=== PATIENT | male | born 1975 | race Caucasian/White ===

== ENCOUNTER → 2021-09-26 08:18 | Outpatient (BNVA) | payer BC, SELFPAY | PROVIDERS: PCP Internal Medicine; Visit Provider Internal Medicine ==

== ENCOUNTER → 2021-10-14 11:03 | Outpatient (BNVA) | payer BC, SELFPAY | PROVIDERS: PCP Internal Medicine; Visit Provider Internal Medicine ==

== ENCOUNTER → 2021-11-07 09:50 | Outpatient (BNVA) | payer BC, SELFPAY | PROVIDERS: PCP Internal Medicine; Visit Provider Nurse Practitioner Family | DX: G90.519 Complex regional pain syndrome I of unspecified upper limb (principal); Z79.891 Long term (current) use of opiate analgesic; Z79.899 Other long term (current) drug therapy | CPT/HCPCS: 99212 ==

== ENCOUNTER → 2021-12-05 09:22 | Outpatient (BNVA) | payer BC, SELFPAY | PROVIDERS: Visit Provider Nurse Practitioner Family | DX: Z13.89 Encounter for screening for other disorder (principal) ==

== ENCOUNTER → 2022-01-02 08:52 | Outpatient (BNVA) | payer BC, SELFPAY | PROVIDERS: Visit Provider Nurse Practitioner Family | DX: Z13.89 Encounter for screening for other disorder (principal) ==

== ENCOUNTER → 2022-09-01 10:48 | Outpatient (BNVA) | payer BC, SELFPAY | PROVIDERS: Visit Provider Nurse Practitioner Family | DX: M54.50 Low back pain, unspecified (principal) ==

== ENCOUNTER → 2022-10-03 10:20 | Outpatient (BNVA) | payer BC, SELFPAY | PROVIDERS: Visit Provider Nurse Practitioner Family | DX: Z13.89 Encounter for screening for other disorder (principal) ==

== ENCOUNTER → 2022-10-31 13:15 | Outpatient (BNVA) | payer BC, SELFPAY | PROVIDERS: Visit Provider Nurse Practitioner Family | DX: Z13.89 Encounter for screening for other disorder (principal) ==

== ENCOUNTER → 2022-11-28 08:53 | Outpatient (BNVA) | payer BC, SELFPAY | PROVIDERS: Visit Provider Nurse Practitioner Family | DX: Z13.89 Encounter for screening for other disorder (principal) ==

== ENCOUNTER → 2022-12-26 08:48 | Outpatient (BNVA) | payer BC, SELFPAY | PROVIDERS: Visit Provider Nurse Practitioner Family ==

== ENCOUNTER → 2023-01-23 09:00 | Outpatient (BNVA) | payer BC, SELFPAY | PROVIDERS: PCP Nurse Practitioner Gerontology; Visit Provider Nurse Practitioner Family ==

== ENCOUNTER 2023-02-20 08:50 | Outpatient (AMB) | payer BC, SELFPAY ==
--- NOTE | 2023-02-20 08:55 | A.OFFVIS_ITS ---
Intake Vital Signs 02/20/23 09:04 Height 5 ft 11 in Weight 216 lb 8 oz BMI 30.2 BP 148/91 H Blood Pressure Location Rt brachial Position Sitting Pulse 64 Pulse Source Pulse Oximeter Pulse Oximetry (%) 98 Oxygen Delivery Method Room Air Intake Visit Reasons: Pill count Intake Note: John comes in today for a pill count to oxycodone-acetaminophen, patient should have 33 tablets and presents with 33 tablets which he last took last night 02/19/23 at 11pm. Pain today 11/20. 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 Patient is supposed to have #33 pills, in his possession has #33 pills. This demonstrates a responsible attitude in regards to the medication regimen. Patient reports adequate analgesia on his regimen of oxycodone-acetaminophen 5-325 mg TID prn with no noted side effects. Denies any fever, malaise, shortness of breaths, abdominal pain, headache, dyspnea, chest pain, constipation, nausea, sedation, dizziness, or urinary retention. [facility] Medical History Acute allergic serous otitis media Acute pharyngitis Allergic reaction CRPS (complex regional pain syndrome), upper limb Hypertension senior living (current) use of opiate analgesic Morbid obesity Obesity, Class I, BMI 30.0-34.9 (see actual BMI) Preventative health care Surgical History History of partial amputation of hand Review of Systems Const All systems reviewed & are unremarkable except as noted in HPI and below Physical Exam General: Appears afebrile. Alert and oriented. Mood and affect appropriate. Follows and participates in conversation appropriately. Respiratory effort is unlabored. Able to transition from sit to stand unassisted. Ambulates with bilaterally normal heel strike and toe off. Right Thumb: Right thumb with graft, mild allodynia or hyperalgesia, no color changes with warm temperature. No swelling or redness noted. Psych Appearance: grossly normal and well kempt Mental Status: mental status grossly normal Speech and movement: Normal speech and movement present and Clear speech present Affect: normal affect Attitude: cooperative Thought process: Normal thought process present Thought content: Normal thought content present, suicidality (none), no hallucinations and No Depressive thoughts present Insight: Good insight present (Psych) Judgement: Good judgement present (Psych) Assessment & Plan Assessment & Plan (1) CRPS (complex regional pain syndrome), upper limb: Code(s): G90.519 - Complex regional pain syndrome I of unspecified upper limb (2) Lower back pain: Code(s): M54.50 - Low back pain, unspecified (3) Opioid contract exists: Code(s): Z79.891 - senior living (current) use of opiate analgesic Plan Patient has shown accountability for his medication regimen and the pill count was accurate. There is no evidence of misuse, abuse or diversion at this time. [employer] reviewed. Will send in a prescription for Percocet 5-325 mg TID for 30 days with advanced date of 03/02/23. Random UDS came back concordant. All questions were answered and the patient is in agreement with the plan. Will follow up in one month for a pill count or sooner if needed. Medications: Refilled oxycodone-acetaminophen 5-325 mg Partial Fill upon patient request. 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
[2023-02-20 09:04] VITALS: BP 148/91; PULSE 64; O2SAT 98; BMI 30.2
== END 2023-02-20 09:07 | disposition home or self-care (01) ==
PROVIDERS: PCP Nurse Practitioner Gerontology; Visit Provider Nurse Practitioner Family
DX: G90.519 Complex regional pain syndrome I of unspecified upper limb (principal); M54.50 Low back pain, unspecified; Z79.891 Long term (current) use of opiate analgesic
CPT/HCPCS: 99214

== ENCOUNTER → 2023-02-20 08:50 | Outpatient (BNVA) | payer BC, SELFPAY | PROVIDERS: PCP Nurse Practitioner Gerontology; Visit Provider Nurse Practitioner Family ==

== ENCOUNTER 2023-03-22 08:28 | Outpatient (AMB) | payer BC, SELFPAY ==
--- NOTE | 2023-03-22 08:30 | A.OFFVIS_ITS ---
Intake Vital Signs 03/22/23 08:38 03/22/23 09:09 Height 5 ft 11 in Weight 213 lb 2 oz BMI 29.7 BP 144/100 H 134/95 H Blood Pressure Location Rt brachial Lt brachial Position Sitting Sitting Pulse 57 Pulse Source Pulse Oximeter Pulse Oximetry (%) 98 Oxygen Delivery Method Room Air Comment bp recheck Intake Visit Reasons: Pill count Intake Note: John comes in today for a pill count to oxycodone-acetaminophen, patient should have 30 tablets and presents with 33 tablets which he last took last night 03/21/23 at 10pm. Pain today 11/20. [employer] Required: No Accompanied by: Self / Same As Patient Allergies No Known Allergies Allergy (Verified 03/22/23 08:37) HPI HPI Comments History of Present Illness Details Patient presents today for a pill count. Patient is supposed to have #30 pills, in his possession has #33 pills. This demonstrates a responsible attitude in regards to the medication regimen. Patient reports adequate analgesia on his regimen of oxycodone-acetaminophen 5-325 mg TID prn with no noted side effects. Denies any fever, malaise, shortness of breaths, abdominal pain, headache, dyspnea, chest pain, constipation, nausea, sedation, dizziness, or urinary retention. [facility], [facility] Medical History Acute allergic serous otitis media Acute pharyngitis Allergic reaction CRPS (complex regional pain syndrome), upper limb Hypertension [facility] (current) use of opiate analgesic Morbid obesity Obesity, Class I, BMI 30.0-34.9 (see actual BMI) Preventative health care Surgical History History of partial amputation of hand Review of Systems Const All systems reviewed & are unremarkable except as noted in HPI and below Physical Exam Vital Signs: Last Vital Signs Pulse 57 03/22/23 08:38 BP 134/95 H 03/22/23 09:09 Pulse Ox 98 03/22/23 08:38 Oxygen Delivery Method Room Air 03/22/23 08:38 BMI result Body Mass Index 29.7 General: Appears afebrile. Alert and oriented. Mood and affect appropriate. Follows and participates in conversation appropriately. Respiratory effort is unlabored. Able to transition from sit to stand unassisted. Ambulates with bilaterally normal heel strike and toe off. Psych Appearance: grossly normal and well kempt Mental Status: mental status grossly normal Speech and movement: Normal speech and movement present and Clear speech present Affect: normal affect Attitude: cooperative Thought process: Normal thought process present Thought content: Normal thought content present, suicidality (none), no hallucinations and No Depressive thoughts present Insight: Good insight present (Psych) Judgement: Good judgement present (Psych) Assessment & Plan Assessment & Plan (1) CRPS (complex regional pain syndrome), upper limb: Code(s): G90.519 - Complex regional pain syndrome I of unspecified upper limb (2) Lower back pain: Code(s): M54.50 - Low back pain, unspecified (3) Opioid contract exists: Code(s): 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 There is no evidence of misuse, abuse or diversion at this time. [employer] reviewed. Will send in a prescription for Percocet 5-325 mg TID for 30 days with advanced date of 04/01/23. Random UDS came back concordant. All questions were answered and the patient is in agreement with the plan. Follow up in one month for a pill count or sooner if needed. Medications: Refilled oxycodone-acetaminophen 5-325 mg Partial Fill upon patient request. 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
[2023-03-22 08:38] VITALS: BP 144/100; PULSE 57; O2SAT 98; BMI 29.7
[2023-03-22 09:09] VITALS: BP 134/95
== END 2023-03-22 08:51 | disposition home or self-care (01) ==
PROVIDERS: PCP Nurse Practitioner Gerontology; Visit Provider Nurse Practitioner Family
DX: G90.519 Complex regional pain syndrome I of unspecified upper limb (principal); M54.50 Low back pain, unspecified; Z79.891 Long term (current) use of opiate analgesic
CPT/HCPCS: 99214

== ENCOUNTER → 2023-03-22 08:28 | Outpatient (BNVA) | payer BC, SELFPAY | PROVIDERS: PCP Nurse Practitioner Gerontology; Visit Provider Nurse Practitioner Family ==

== ENCOUNTER 2023-04-24 08:44 | Outpatient (AMB) | payer BC, SELFPAY ==
--- NOTE | 2023-04-24 08:48 | A.OFFVIS_ITS ---
Intake Vital Signs 04/24/23 08:54 Height 5 ft 11 in Weight 210 lb 4 oz BMI 29.3 BP 156/97 H Blood Pressure Location Rt brachial Position Sitting Pulse 65 Pulse Source Pulse Oximeter Pulse Oximetry (%) 98 Oxygen Delivery Method Room Air Intake Visit Reasons: PILL COUNT Intake Note: John comes in today for a pill count to oxycodone-acetaminophen, patient should have 21 tablets and presents with 23 tablets which he last took last night 04/23/23 at 8pm. 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 Patient is supposed to have #21 pills, in his possession has #23 pills. This demonstrates a responsible attitude in regards to the medication regimen. Patient reports adequate analgesia on his regimen of oxycodone-acetaminophen 5-325 mg TID prn with no noted side effects. Denies any fever, malaise, shortness of breaths, abdominal pain, headache, dyspnea, chest pain, constipation, nausea, sedation, dizziness, or urinary retention. Patient presents today with elevated BP reading, asymptomatic. Denies any headache, dizziness, chest tightness, shortness of breath, jaw or neck pain, nausea, or palpitations. Patient reports his dog of 15 years yesterday. He is planning to make a follow up appointment with his PCP regarding medication adjustment. [facility] Medical History retirement (current) use of opiate analgesic CRPS (complex regional pain syndrome), upper limb Preventative health care Obesity, Class I, BMI 30.0-34.9 (see actual BMI) Morbid obesity Hypertension Allergic reaction Acute pharyngitis Acute allergic serous otitis media Surgical History History of partial amputation of hand Review of Systems Const All systems reviewed & are unremarkable except as noted in HPI and below Physical Exam Vital Signs: Last Vital Signs Pulse 65 04/24/23 08:54 BP 156/97 H 04/24/23 08:54 Pulse Ox 98 04/24/23 08:54 Oxygen Delivery Method Room Air 04/24/23 08:54 BMI result Body Mass Index 29.3 General: Appears afebrile. Alert and oriented. Mood and affect appropriate. Follows and participates in conversation appropriately. Respiratory effort is unlabored. Able to transition from sit to stand unassisted. Ambulates with bilaterally normal heel strike and toe off. Resp Effort & Inspection: normal respiratory effort, able to speak in complete sentences, no cough and symmetric chest movement Cardio Jugular venous distension: no JVD Peripheral pulses: Peripheral pulses 2+ throughout Psych Appearance: grossly normal and well kempt Mental Status: mental status grossly normal Speech and movement: Normal speech and movement present and Clear speech present Affect: normal affect and Sad affect present Attitude: cooperative Thought process: Normal thought process present Thought content: Normal thought content present, suicidality (none), no hallucinations and No Depressive thoughts present Insight: Good insight present (Psych) Judgement: Good judgement present (Psych) Assessment & Plan Assessment & Plan (1) CRPS (complex regional pain syndrome), upper limb: Code(s): G90.519 - Complex regional pain syndrome I of unspecified upper limb (2) Lower back pain: Code(s): M54.50 - Low back pain, unspecified (3) Opioid contract exists: Code(s): Z79.891 - 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 There is no evidence of misuse, abuse or diversion at this time. [employer] reviewed. Will send in a prescription for Percocet 5-325 mg TID for 30 days with advanced date of 05/01/23. Patient will monitor BP at home and follow up with his PCP for persistent elevated BP readings. Patient reports taking his BP daily. All questions were answered and the patient is in agreement with the plan. Follow up in one month for a pill count or sooner if needed. Medications: Refilled oxycodone-acetaminophen 5-325 mg Partial Fill upon patient request. 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
[2023-04-24 08:54] VITALS: BP 156/97; PULSE 65; O2SAT 98; BMI 29.3
== END 2023-04-24 09:02 | disposition home or self-care (01) ==
PROVIDERS: PCP Nurse Practitioner Gerontology; Visit Provider Nurse Practitioner Family
DX: G90.519 Complex regional pain syndrome I of unspecified upper limb (principal); M54.50 Low back pain, unspecified; Z79.891 Long term (current) use of opiate analgesic
CPT/HCPCS: 99214

== ENCOUNTER → 2023-04-24 08:44 | Outpatient (BNVA) | payer BC, SELFPAY | PROVIDERS: PCP Nurse Practitioner Gerontology; Visit Provider Nurse Practitioner Family ==

== ENCOUNTER 2023-05-22 08:47 | Outpatient (AMB) | payer BC, SELFPAY ==
--- NOTE | 2023-05-22 08:52 | MHC.OFFVIS ---
Intake Vital Signs 05/22/23 09:00 Height 5 ft 11 in Weight 212 lb 9 oz BMI 29.6 BP 120/64 Blood Pressure Location Rt brachial Position Sitting Pulse 61 Pulse Source Pulse Oximeter Pulse Oximetry (%) 99 Oxygen Delivery Method Room Air Intake Visit Reasons: PILL COUNT Intake Note: John comes in today for a pill count to oxycodone-acetaminophen, patient should have 27 tablets and presents with 28 tablets which he last took today 05/22/23 at 12am. Pain today 12/20 [employer] Required: No Accompanied by: Self / Same As Patient Allergies No Known Allergies Allergy (Verified 05/22/23 09:00) HPI HPI Comments History of Present Illness Details Patient presents today for a pill count. Patient is supposed to have #27 pills, in his possession has #28 pills. This demonstrates a responsible attitude in regards to the medication regimen. Patient reports adequate analgesia on his regimen of oxycodone-acetaminophen 5-325 mg TID prn with no noted side effects. Denies any fever, malaise, shortness of breaths, abdominal pain, headache, dyspnea, chest pain, constipation, nausea, sedation, dizziness, or urinary retention. [facility] Medical History (Updated 05/22/23 @ 09:05 by RISHI Alston) [facility] (current) use of opiate analgesic CRPS (complex regional pain syndrome), upper limb Preventative health care Obesity, Class I, BMI 30.0-34.9 (see actual BMI) Morbid obesity Hypertension Allergic reaction Acute pharyngitis Acute allergic serous otitis media Surgical History History of partial amputation of hand Review of Systems Const All systems reviewed & are unremarkable except as noted in HPI and below Reports as per HPI, Denies chills, Denies difficulty sleeping, Denies fatigue, Denies fever(s), Denies headache(s), Denies malaise, Denies night sweats, Denies poor appetite and Denies weight loss ENT Denies headache(s) Neuro Denies headache(s) Endo Denies fatigue Physical Exam General: Appears afebrile. Alert and oriented. Mood and affect appropriate. Follows and participates in conversation appropriately. Respiratory effort is unlabored. Able to transition from sit to stand unassisted. Ambulates with bilaterally normal heel strike and toe off. Right Thumb: Right thumb with graft, mild allodynia and no color changes with warm temperature but reports color changes in cold environments. No swelling or redness noted. Psych Appearance: grossly normal and well kempt Mental Status: mental status grossly normal Speech and movement: Normal speech and movement present and Clear speech present Affect: normal affect Attitude: cooperative Thought process: Normal thought process present Thought content: Normal thought content present, suicidality (none), no hallucinations and No Depressive thoughts present Insight: Good insight present (Psych) Judgement: Good judgement present (Psych) Assessment & Plan Assessment & Plan (1) CRPS (complex regional pain syndrome), upper limb: Code(s): G90.519 - Complex regional pain syndrome I of unspecified upper limb (2) Lower back pain: Code(s): M54.50 - Low back pain, unspecified (3) Opioid contract exists: Code(s): Z79.891 - 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 There is no evidence of misuse, abuse or diversion at this time. [facility] Next prescription for Percocet 5-325 mg TID for 30 days sent with advanced date of 05/30/23. All questions were answered and the patient is in agreement with the plan. Follow up in one month for a pill count or sooner if needed. Medications: Refilled oxycodone-acetaminophen 5-325 mg Partial Fill upon patient request. 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
[2023-05-22 09:00] VITALS: BP 120/64; PULSE 61; O2SAT 99; BMI 29.6
== END 2023-05-22 09:04 | disposition home or self-care (01) ==
PROVIDERS: PCP Nurse Practitioner Gerontology; Visit Provider Nurse Practitioner Family
DX: G90.519 Complex regional pain syndrome I of unspecified upper limb (principal); M54.50 Low back pain, unspecified; Z79.891 Long term (current) use of opiate analgesic
CPT/HCPCS: 99214

== ENCOUNTER → 2023-05-22 08:47 | Outpatient (BNVA) | payer BC, SELFPAY | PROVIDERS: PCP Nurse Practitioner Gerontology; Visit Provider Nurse Practitioner Family ==

== ENCOUNTER 2023-06-26 08:43 | Outpatient (AMB) | payer BC, SELFPAY ==
--- NOTE | 2023-06-26 08:51 | MHC.OFFVIS ---
Intake Vital Signs 06/26/23 08:58 Height 5 ft 11 in Weight 216 lb 8 oz BMI 30.2 BP 130/68 Blood Pressure Location Rt brachial Position Sitting Pulse 72 Pulse Source Pulse Oximeter Pulse Oximetry (%) 97 Oxygen Delivery Method Room Air Intake Visit Reasons: PILL COUNT Intake Note: John comes in today for a pill count to oxycodone-acetaminophen, patient should have 9 tablets and presents with 12 tablets which he last took last night 06/25/23 at 11pm. Pain today 09/22. 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 Patient is supposed to have #9 pills, in his possession has #12 pills. This demonstrates a responsible attitude in regards to the medication regimen. Patient reports adequate analgesia on his regimen of oxycodone-acetaminophen 5-325 mg TID prn with no noted side effects. Denies any fever, malaise, shortness of breaths, abdominal pain, headache, dyspnea, chest pain, constipation, nausea, sedation, dizziness, or urinary retention. Patient reports new onset of insomnia, difficulty falling asleep and maintaining sleep. He attributes this to work-related stress and is considering trial of cannabis at the local dispensary. Patient reports he will discuss this with his PCP too. [facility] Medical History [facility] (current) use of opiate analgesic CRPS (complex regional pain syndrome), upper limb Preventative health care Obesity, Class I, BMI 30.0-34.9 (see actual BMI) Morbid obesity Hypertension Allergic reaction Acute pharyngitis Acute allergic serous otitis media Surgical History History of partial amputation of hand Review of Systems Const All systems reviewed & are unremarkable except as noted in HPI and below Reports as per HPI, Denies body aches, Denies chills, Denies daytime sleepiness, Reports difficulty sleeping, Denies fatigue, Denies fever(s), Denies headache(s), Denies malaise, Denies night sweats, Denies stops breathing during sleep, Denies weakness and Denies weight loss ENT Denies headache(s) Neuro Denies headache(s) and Denies weakness Psych Reports as per HPI, Reports abnormal sleep pattern, Denies anxiety, Denies depression, Denies difficulty concentrating, Denies mood swings and Denies panic attacks Endo Denies fatigue Physical Exam General: Appears afebrile. Alert and oriented. Mood and affect appropriate. Follows and participates in conversation appropriately. Respiratory effort is unlabored. Able to transition from sit to stand unassisted. Ambulates with bilaterally normal heel strike and toe off. Right Thumb: Right thumb with graft, with moderate allodynia and color changes with cold temperature and weather changes per patient's report. No swelling or redness noted. 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 There is no evidence of misuse, abuse or diversion at this time. [employer] reviewed. Next prescription for Percocet 5-325 mg TID for 30 days sent with advanced date of 06/29/23. Discussed sleep hygiene and conservative measures, including trial of melatonin or magnesium, removing electronic devices, such as TVs, computers, and smart phones, from the bedroom;CBT or stress management therapy; avoiding large meals, caffeine, and alcohol before bedtime; weight optimization, and daily physical activity and exercise. Patient considers trial of cannabis and will discuss this with his PCP. All questions were answered and the patient is in agreement with the plan. Follow up in one month for a pill count or sooner if needed. Medications: New magnesium glycinate 200 mg (2 x 100 mg) PO BEDTIME 60 tabs 3RF insomnia G47.00 - Insomnia, unspecified Refilled oxycodone-acetaminophen 5-325 mg Partial Fill upon patient request. 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
[2023-06-26 08:58] VITALS: BP 130/68; PULSE 72; O2SAT 97; BMI 30.2
== END 2023-06-26 09:07 | disposition home or self-care (01) ==
PROVIDERS: PCP Nurse Practitioner Gerontology; Visit Provider Nurse Practitioner Family
DX: G90.519 Complex regional pain syndrome I of unspecified upper limb (principal); M54.50 Low back pain, unspecified; Z79.891 Long term (current) use of opiate analgesic; G47.00 Insomnia, unspecified
CPT/HCPCS: 99214

== ENCOUNTER → 2023-06-26 08:43 | Outpatient (BNVA) | payer BC, SELFPAY | PROVIDERS: PCP Nurse Practitioner Gerontology; Visit Provider Nurse Practitioner Family ==

== ENCOUNTER 2023-07-24 09:02 | Outpatient (AMB) | payer BC, SELFPAY ==
--- NOTE | 2023-07-24 09:20 | MHC.OFFVIS ---
Intake Vital Signs 07/24/23 09:22 Height 5 ft 11 in Weight 217 lb BMI 30.3 BP 122/78 Blood Pressure Location Rt brachial Position Sitting Pulse 72 Pulse Source Pulse Oximeter Pulse Oximetry (%) 99 Oxygen Delivery Method Room Air Intake Visit Reasons: Medication Count/confirmed Intake Note: John comes in today for a pill count to oxycodone-acetamiophen, patient should have 15 tablets and presents with 17 tablets which he last took last night 07/23/23 at 9pm. Pain today 11/20 Deputy Controller Required: No Allergies No Known Allergies Allergy (Verified 06/26/23 08:57) HPI HPI Comments History of Present Illness Details Patient presents today for a pill count. Patient is supposed to have #15 pills, in his possession has #17 pills. This demonstrates a responsible attitude in regards to the medication regimen. Patient reports adequate analgesia on his regimen of oxycodone-acetaminophen 5-325 mg TID prn with no noted side effects. Denies any fever, malaise, shortness of breaths, abdominal pain, headache, dyspnea, chest pain, constipation, nausea, sedation, dizziness, or urinary retention. Patient denies any recent ER, Urgent clinic or Walk-in clinic. 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 CRPS (complex regional pain syndrome), upper limb Preventative health care Obesity, Class I, BMI 30.0-34.9 (see actual BMI) Morbid obesity Hypertension Allergic reaction Acute pharyngitis Acute allergic serous otitis media Surgical History History of partial amputation of hand Review of Systems Const All systems reviewed & are unremarkable except as noted in HPI and below Physical Exam Vital Signs: Last Vital Signs Pulse 72 07/24/23 09:22 BP 122/78 07/24/23 09:22 Pulse Ox 99 07/24/23 09:22 Oxygen Delivery Method Room Air 07/24/23 09:22 BMI result Body Mass Index 30.3 General: Appears afebrile. Alert and oriented. Mood and affect appropriate. Follows and participates in conversation appropriately. Respiratory effort is unlabored. Able to transition from sit to stand unassisted. Ambulates with bilaterally normal heel strike and toe off. Right Thumb: Right thumb with graft, with mild allodynia and color changes with cold weather changes. No swelling or redness noted. Assessment & Plan Assessment & Plan (1) CRPS (complex regional pain syndrome), upper limb: Code(s): G90.519 - Complex regional pain syndrome I of unspecified upper limb (2) Lower back pain: Code(s): M54.50 - Low back pain, unspecified (3) Opioid contract exists: Code(s): Z79.891 - correction (current) use of opiate analgesic Plan Patient has shown accountability for his medication regimen and the pill count was accurate. There is no evidence of misuse, abuse or diversion at this time. [employer] reviewed. Script for Percocet 5-325 mg TID for 30 days sent with advanced date of 07/28/23. All questions were answered and the patient is in agreement with the plan. Follow up in one month for a pill count or sooner if needed. Medications: Refilled oxycodone-acetaminophen 5-325 mg Partial Fill upon patient request. 1 tab PO TID PRN 90 tabs 0RF pain 30 days G90.519 - Complex regional pain syndrome I of unspecified upper limb, Z79.891 - correction (current) use of opiate analgesic Coding Level of Care Code Est Pt Level 4 (16853) Diagnoses CRPS (complex regional pain syndrome), upper limb G90.519 Lower back pain M54.50 Opioid contract exists Z79.891
[2023-07-24 09:22] VITALS: BP 122/78; PULSE 72; O2SAT 99; BMI 30.3
== END 2023-07-24 09:27 | disposition home or self-care (01) ==
PROVIDERS: PCP Nurse Practitioner Gerontology; Visit Provider Nurse Practitioner Family
DX: G90.519 Complex regional pain syndrome I of unspecified upper limb (principal); M54.50 Low back pain, unspecified; Z79.891 Long term (current) use of opiate analgesic
CPT/HCPCS: 99214

== ENCOUNTER → 2023-07-24 09:02 | Outpatient (BNVA) | payer BC, SELFPAY | PROVIDERS: PCP Nurse Practitioner Gerontology; Visit Provider Nurse Practitioner Family ==

== ENCOUNTER 2023-08-21 08:52 | Outpatient (AMB) | payer BC, SELFPAY ==
--- NOTE | 2023-08-21 08:59 | MHC.OFFVIS ---
Intake Vital Signs 08/21/23 09:00 Height 5 ft 11 in Weight 217 lb 2 oz BMI 30.3 BP 132/70 Blood Pressure Location Rt brachial Position Sitting Pulse 72 Pulse Source Pulse Oximeter Pulse Oximetry (%) 99 Oxygen Delivery Method Room Air Intake Visit Reasons: Medication Count Intake Note: John comes in today for a pill count to oxycodone-acetaminophen, patient should have 18 tablets and presents with 20 tablets which he last took yesterday 08/20/23 at 4pm. Pain today 10/20. Patient also signed updated opioid contract, signed copy was provided to patient. 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 Patient is supposed to have #18 pills, in his possession has #20 pills. This demonstrates a responsible attitude in regards to the medication regimen. Patient reports adequate analgesia on his regimen of oxycodone-acetaminophen 5-325 mg TID prn with no noted side effects. Current cold weather or cold applications make the thumb pain worse, whereas massage, heat, gloves and current medication regime makes it better. Patient states the skin on the thumb has been darkening since the injury and during severe cold weather. He continues to work full-time. Denies any fever, malaise, chest pain, shortness of breaths, abdominal pain, headache, dyspnea, constipation, nausea, sedation, dizziness, or urinary retention. Patient denies any recent ER, Urgent clinic or Walk-in clinic. 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 CRPS (complex regional pain syndrome), upper limb Preventative health care Obesity, Class I, BMI 30.0-34.9 (see actual BMI) Morbid obesity Hypertension Allergic reaction Acute pharyngitis Acute allergic serous otitis media Surgical History History of partial amputation of hand Review of Systems Const All systems reviewed & are unremarkable except as noted in HPI and below Physical Exam Vital Signs: Last Vital Signs Pulse 72 08/21/23 09:00 BP 132/70 08/21/23 09:00 Pulse Ox 99 08/21/23 09:00 Oxygen Delivery Method Room Air 08/21/23 09:00 BMI result Body Mass Index 30.3 General: Appears afebrile. Alert and oriented. Mood and affect appropriate. Follows and participates in conversation appropriately. Respiratory effort is unlabored. No cough. Able to transition from sit to stand unassisted. Ambulates with bilaterally normal heel strike and toe off. Right Thumb: Right thumb with graft, with mild allodynia and color changes with cold weather changes. No swelling or redness noted. Psych Appearance: grossly normal and well kempt Mental Status: mental status grossly normal Speech and movement: Normal speech and movement present and Clear speech present Affect: normal affect Attitude: cooperative Thought process: Normal thought process present Thought content: Normal thought content present, suicidality (none), no hallucinations and No Depressive thoughts present Insight: Good insight present (Psych) Judgement: Good judgement present (Psych) Assessment & Plan Assessment & Plan (1) CRPS (complex regional pain syndrome), upper limb: Code(s): G90.519 - Complex regional pain syndrome I of unspecified upper limb (2) Lower back pain: Code(s): M54.50 - Low back pain, unspecified (3) Opioid contract exists: Code(s): Z79.891 - 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 There is no evidence of misuse, abuse or diversion at this time. [employer] reviewed. Script for Percocet 5-325 mg TID for 30 days sent with advanced date of 08/27/23. All questions were answered and the patient is in agreement with the plan. Follow up in 4-5 weeks for a pill count or sooner if needed. Medications: Refilled oxycodone-acetaminophen 5-325 mg Partial Fill upon patient request. 1 tab PO TID PRN 90 tabs 0RF pain 30 days G90.519 - Complex regional pain syndrome I of unspecified upper limb, Z79.891 - detention (current) use of opiate analgesic Coding Level of Care Code Est Pt Level 4 (32229) Diagnoses CRPS (complex regional pain syndrome), upper limb G90.519 Lower back pain M54.50 Opioid contract exists Z79.891
[2023-08-21 09:00] VITALS: BP 132/70; PULSE 72; O2SAT 99; BMI 30.3
== END 2023-08-21 09:05 | disposition home or self-care (01) ==
PROVIDERS: PCP Nurse Practitioner Gerontology; Visit Provider Nurse Practitioner Family
DX: G90.519 Complex regional pain syndrome I of unspecified upper limb (principal); M54.50 Low back pain, unspecified; Z79.891 Long term (current) use of opiate analgesic
CPT/HCPCS: 99214

== ENCOUNTER → 2023-08-21 08:52 | Outpatient (BNVA) | payer BC, SELFPAY | PROVIDERS: PCP Nurse Practitioner Gerontology; Visit Provider Nurse Practitioner Family ==

== ENCOUNTER 2023-09-18 08:47 | Outpatient (AMB) | payer BC, SELFPAY ==
--- NOTE | 2023-09-18 08:48 | A.OFFVIS_ITS ---
Intake Vital Signs 09/18/23 08:55 Height 5 ft 11 in Weight 216 lb 2 oz BMI 30.1 BP 128/68 Blood Pressure Location Rt brachial Position Sitting Pulse 80 Pulse Source Pulse Oximeter Pulse Oximetry (%) 97 Oxygen Delivery Method Room Air Intake Visit Reasons: Medication Count/confirmed Intake Note: John comes in today for a pill count to oxycodone-acetaminophen. Patient should have 24 tablets and presents with 27 tablets which he last took today 09/18/23 at 1am. Pain today 11/20 Senior Strategy Manager Required: No Accompanied by: Self / Same As Patient Allergies No Known Allergies Allergy (Verified 09/18/23 08:55) HPI HPI Comments History of Present Illness Details Patient presents today for a pill count. Patient is supposed to have #24 pills, in his possession has #27 pills. This demonstrates a responsible attitude in regards to the medication regimen. Patient reports adequate analgesia on his regimen of oxycodone-acetaminophen 5-325 mg TID prn with no noted side effects. Patient reports cold weather increases his thumb pain worse, whereas massage, heat, gloves and current medication regime makes it better. Denies any fever, malaise, chest pain, shortness of breaths, abdominal pain, headache, dyspnea, constipation, nausea, sedation, dizziness, or urinary retention. 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 CRPS (complex regional pain syndrome), upper limb Preventative health care Obesity, Class I, BMI 30.0-34.9 (see actual BMI) Morbid obesity Hypertension Allergic reaction Acute pharyngitis Acute allergic serous otitis media Surgical History History of partial amputation of hand Review of Systems Const All systems reviewed & are unremarkable except as noted in HPI and below Physical Exam Vital Signs: Last Vital Signs Pulse 80 09/18/23 08:55 BP 128/68 09/18/23 08:55 Pulse Ox 97 09/18/23 08:55 Oxygen Delivery Method Room Air 09/18/23 08:55 BMI result Body Mass Index 30.1 General: Appears afebrile. Alert and oriented. Mood and affect appropriate. Follows and participates in conversation appropriately. Respiratory effort is unlabored. No cough. Able to transition from sit to stand unassisted. Ambulates with bilaterally normal heel strike and toe off. Psych Appearance: grossly normal Mental Status: mental status grossly normal Speech and movement: Normal speech and movement present Affect: normal affect Attitude: cooperative Thought process: Normal thought process present Thought content: Normal thought content present, suicidality (none), no hallucinations and No Depressive thoughts present Insight: Good insight present (Psych) Judgement: Good judgement present (Psych) Results Reviewed Results Reviewed: No imaging is available for review. Assessment & Plan Assessment & Plan (1) CRPS (complex regional pain syndrome), upper limb: Code(s): G90.519 - Complex regional pain syndrome I of unspecified upper limb (2) Opioid contract exists: Code(s): Z79.891 - residential (current) use of opiate analgesic Plan Patient has shown accountability for his medication regimen and the pill count was accurate. There is no evidence of misuse, abuse or diversion at this time. [employer] reviewed. Script for Percocet 5-325 mg TID for 30 days sent with advanced date of 09/26/23. All questions were answered and the patient is in agreement with the plan. Follow up in 4-5 weeks for a pill count or sooner if needed. Medications: Refilled oxycodone-acetaminophen 5-325 mg Partial Fill upon patient request. 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
[2023-09-18 08:55] VITALS: BP 128/68; PULSE 80; O2SAT 97; BMI 30.1
== END 2023-09-18 09:01 | disposition home or self-care (01) ==
PROVIDERS: PCP Nurse Practitioner Gerontology; Visit Provider Nurse Practitioner Family
DX: G90.519 Complex regional pain syndrome I of unspecified upper limb (principal); Z79.891 Long term (current) use of opiate analgesic
CPT/HCPCS: 99214

== ENCOUNTER → 2023-09-18 08:47 | Outpatient (BNVA) | payer BC, SELFPAY | PROVIDERS: PCP Nurse Practitioner Gerontology; Visit Provider Nurse Practitioner Family ==

== ENCOUNTER 2023-10-18 08:48 | Outpatient (AMB) | payer BC, SELFPAY ==
--- NOTE | 2023-10-18 08:57 | MHC.OFFVIS ---
Intake Vital Signs 10/18/23 09:06 Height 5 ft 11 in Weight 221 lb 4 oz BMI 30.9 BP 122/68 Blood Pressure Location Rt brachial Position Sitting Pulse 72 Pulse Source Pulse Oximeter Pulse Oximetry (%) 98 Oxygen Delivery Method Room Air Intake Visit Reasons: Pill count Intake Note: John comes in today for a pill count to oxycodone-acetaminophen, patient should have 24 tabs and presents with 26 tablets which he last took last night 10/17/23 at 10pm. 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 Patient is supposed to have #24 pills, in his possession has #26 pills. This demonstrates a responsible attitude in regards to the medication regimen. Patient reports adequate analgesia on his regimen of oxycodone-acetaminophen 5-325 mg TID prn with no noted side effects. Patient reports today's rainy weather increases his thumb symptoms. He continues to endorse being more funcitonal and less symptomatic on current medication regime. He also utilizes massage, heat and gloves. Denies any fever, malaise, chest pain, shortness of breaths, abdominal pain, headache, dyspnea, constipation, nausea, sedation, dizziness, or urinary retention. 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 Alert and oriented. Mood and affect appropriate. Follows and participates in conversation appropriately. Respiratory effort is unlabored. No cough. Able to transition from sit to stand unassisted. Ambulates with bilaterally normal heel strike and toe off. Right Thumb: Right thumb with graft, with mild allodynia and color changes with cold rainy temperature and weather changes per patient's report. No swelling or redness noted. Extrem General: Yes capillary refill normal, Yes no clubbing, cyanosis or edema and Yes no calf tenderness Psych Appearance: grossly normal Mental Status: mental status grossly normal Speech and movement: Normal speech and movement present Affect: normal affect Attitude: cooperative Thought process: Normal thought process present Thought content: Normal thought content present, suicidality (none), no hallucinations and No Depressive thoughts present Insight: Good insight present (Psych) Judgement: Good judgement present (Psych) Results Reviewed Results Reviewed: No imaging is available for review. 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 There is no evidence of misuse, abuse or diversion at this time. [employer] reviewed. Script for Percocet 5-325 mg TID for 30 days sent with advanced date of 10/24/23. Denies any side effects and reports good tolerance. All questions were answered and the patient is in agreement with the plan. Follow up in 4-5 weeks for a pill count or sooner if needed. Medications: Refilled oxycodone-acetaminophen 5-325 mg Partial Fill upon patient request. 1 tab PO TID PRN 90 tabs 0RF pain 30 days G90.519 - Complex regional pain syndrome I of unspecified upper limb, Z79.891 - senior living (current) use of opiate analgesic Coding Level of Care Code Est Pt Level 4 (08245) Diagnoses CRPS (complex regional pain syndrome), upper limb G90.519 Opioid contract exists Z79.891 Chronic pain syndrome G89.4
[2023-10-18 09:06] VITALS: BP 122/68; PULSE 72; O2SAT 98; BMI 30.9
== END 2023-10-18 09:10 | disposition home or self-care (01) ==
PROVIDERS: PCP Nurse Practitioner Gerontology; Visit Provider Nurse Practitioner Family
DX: G89.4 Chronic pain syndrome (principal); G90.511 Complex regional pain syndrome I of right upper limb; Z79.891 Long term (current) use of opiate analgesic
CPT/HCPCS: 99214

== ENCOUNTER → 2023-10-18 08:48 | Outpatient (BNVA) | payer BC, SELFPAY | PROVIDERS: PCP Nurse Practitioner Gerontology; Visit Provider Nurse Practitioner Family ==

== ENCOUNTER 2023-11-15 09:06 | Outpatient (AMB) | payer BC, SELFPAY ==
--- NOTE | 2023-11-15 09:07 | MHC.OFFVIS ---
Intake Vital Signs 11/15/23 09:15 Height 5 ft 11 in Weight 221 lb BMI 30.8 BP 130/68 Blood Pressure Location Rt brachial Position Sitting Pulse 79 Pulse Source Pulse Oximeter Pulse Oximetry (%) 99 Oxygen Delivery Method Room Air Intake Visit Reasons: Pill Count Intake Note: John comes in today for a pill count to oxycodone-acetaminophen, patient should have 24 tablets and presents with 27 tablets which he last took last night 11/13/33 at 10pm. Pain today 10/20 Final Cigar And Box Examiner Required: No Accompanied by: Self / Same As Patient Allergies No Known Allergies Allergy (Verified 11/15/23 09:16) HPI HPI Comments History of Present Illness Details Patient presents today for a pill count. Patient is supposed to have #24 pills, in his possession has #27 pills. This demonstrates a responsible attitude in regards to the medication regimen. Patient reports adequate analgesia on his regimen of oxycodone-acetaminophen 5-325 mg TID prn with no noted side effects. Denies any fever, malaise, chest pain, shortness of breaths, abdominal pain, headache, dyspnea, constipation, nausea, sedation, dizziness, or urinary retention. 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 CRPS (complex regional pain syndrome), upper limb Preventative health care Obesity, Class I, BMI 30.0-34.9 (see actual BMI) Morbid obesity Hypertension Allergic reaction Acute pharyngitis Acute allergic serous otitis media Surgical History History of partial amputation of hand Review of Systems Const All systems reviewed & are unremarkable except as noted in HPI and below Physical Exam Vital Signs: Last Vital Signs Pulse 79 11/15/23 09:15 BP 130/68 11/15/23 09:15 Pulse Ox 99 11/15/23 09:15 Oxygen Delivery Method Room Air 11/15/23 09:15 BMI result Body Mass Index 30.8 General: Appears afebrile. Alert and oriented. Mood and affect appropriate. Follows and participates in conversation appropriately. Respiratory effort is unlabored. No cough. Able to transition from sit to stand unassisted. Ambulates with bilaterally normal heel strike and toe off. Right Thumb: Right thumb with graft, with minimal allodynia and color changes with cold wintery temperature and weather changes per patient's report. No swelling or redness noted. Psych Appearance: grossly normal and well kempt Mental Status: mental status grossly normal Speech and movement: Normal speech and movement present and Clear speech present Affect: normal affect Attitude: cooperative Thought process: Normal thought process present Thought content: Normal thought content present, suicidality (none), no hallucinations and No Depressive thoughts present Insight: Good insight present (Psych) Judgement: Good judgement present (Psych) Assessment & Plan Assessment & Plan (1) CRPS (complex regional pain syndrome), upper limb: Code(s): G90.519 - Complex regional pain syndrome I of unspecified upper limb (2) Opioid contract exists: Code(s): Z79.891 - shelter (current) use of opiate analgesic (3) Chronic pain syndrome: Code(s): G89.4 - Chronic pain syndrome Plan Patient has shown accountability for his medication regimen and the pill count was accurate. There is no evidence of misuse, abuse or diversion at this time. [employer] reviewed. Script for Percocet 5-325 mg TID for 30 days sent with advanced date of 11/23/23. Denies any side effects and reports good tolerance. All questions were answered and the patient is in agreement with the plan. Follow up in 4-5 weeks for a pill count or sooner if needed. Medications: Refilled oxycodone-acetaminophen 5-325 mg Partial Fill upon patient request. 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
[2023-11-15 09:15] VITALS: BP 130/68; PULSE 79; O2SAT 99; BMI 30.8
== END 2023-11-15 09:20 | disposition home or self-care (01) ==
PROVIDERS: PCP Nurse Practitioner Gerontology; Visit Provider Nurse Practitioner Family
DX: G89.4 Chronic pain syndrome (principal); G90.519 Complex regional pain syndrome I of unspecified upper limb; Z79.891 Long term (current) use of opiate analgesic
CPT/HCPCS: 99214

== ENCOUNTER → 2023-11-15 09:06 | Outpatient (BNVA) | payer BC, SELFPAY | PROVIDERS: PCP Nurse Practitioner Gerontology; Visit Provider Nurse Practitioner Family ==

== ENCOUNTER 2023-12-13 08:47 | Outpatient (AMB) | payer BC, SELFPAY ==
--- NOTE | 2023-12-13 08:50 | A.OFFVIS_ITS ---
Vital Signs 3 12/13/23 08:58 Height 5 ft 11 in Weight 219 lb 8 oz BMI 30.6 BP 130/78 Blood Pressure Location Rt brachial Position Sitting Pulse 82 Pulse Source Pulse Oximeter Pulse Oximetry (%) 99 Oxygen Delivery Method Room Air Intake Visit Reasons: PILL COUNT Intake Note: John comes in today for a pill count to oxycodone-acetaminophen. Patient should have 30 tablets and presents with 32 tablets which he last took today 12/13/23 at 4:30am. 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 Patient is prescribed oxycodone acetaminophen 5-325mg take 1 tablet three times daily as needed. Patient arrived today with the expectation of having 30 pills, she presented 32 pills which were counted in the presence of two staff members and returned to the patient in the original prescription bottle. This demonstrates responsible attitude toward patient's opioid medications. Pain is reported today as 12/20 and last dose of pain medication was taken at 04:30 this morning. Patient denies side effects including somnolence, constipation, itching, dyspnea, rash, dizziness or weakness. He suffered slip and fall down some stairs 10/2023, recent MRI results were reviewed, as per below. Patient continues with axial lower back pain without radiation down either leg. Denies burning, numbness, tingling, shooting, zapping or electrical pain. Denies red flag symptoms including new loss of bowel, bladder or saddle anesthesia. Pain worse with movement and twisting. He has never had injections for this pain. Patient reports previous attempt at physical therapy, continues with home exercise program as advised on discharge from PT but pain persists. He is taking his chronic opioids and ibuprofen without relief. Prior visit with Corine Bai NP: Patient presents today for a pill count. Patient is supposed to have #24 pills, in his possession has #27 pills. This demonstrates a responsible attitude in regards to the medication regimen. Patient reports adequate analgesia on his regimen of oxycodone-acetaminophen 5- 325 mg TID prn with no noted side effects. Denies any fever, malaise, chest pain, shortness of breaths, abdominal pain, headache, dyspnea, constipation, nausea, sedation, dizziness, or urinary retention. 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 CRPS (complex regional pain syndrome), upper limb Preventative health care Obesity, Class I, BMI 30.0-34.9 (see actual BMI) Morbid obesity Hypertension Allergic reaction Acute pharyngitis Acute allergic serous otitis media Surgical History History of partial amputation of hand Review of Systems Const All systems reviewed & are unremarkable except as noted in HPI and below Physical Exam Vital Signs: Last Vital Signs Pulse 82 12/13/23 08:58 BP 130/78 12/13/23 08:58 Pulse Ox 99 12/13/23 08:58 Oxygen Delivery Method Room Air 12/13/23 08:58 BMI result Body Mass Index 30.6 General: awake, alert, oriented. Answers questions appropriately. Fully engaged in examination. Skin: warm, dry, intact HEENT: Normocephalic. Hearing intact. Cardiac: External chest normal in appearance. Respiratory: No cough, audible wheezing or stridor. Abdomen: without gross distension. MS: No obvious swelling or deformities. Able to transition from sit to stand unassisted. Ambulates with bilaterally normal heel strike and toe off Neurological: Oriented to person, place, time and situation. Thought process intact. No gait abnormalities appreciated. Psychiatric: Appropriate mood and affect. Good judgment and insight. 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 No obvious signs of diversion, abuse or misuse of the opioid medications. Will send in prescription for Percocet 5-325 mg TID with an advanced date of 12/23/2023. Discussed options for treatment for his lumbar spondylosis including diagnostic injections, therapeutic injections, sprint and RFA. Sprint pamphlet was provided to the patient. Patient will review and consider, we will let the office know if he would like to proceed with diagnostic lumbar medial branch blocks. Patient to follow-up in the office in 1 month, sooner if needed. All questions and concerns have been answered and patient agrees with the plan. Medications: Refilled 2 oxycodone-acetaminophen 5-325 mg Partial Fill upon patient request. 1 tab PO TID 30 days PRN 90 tabs 0RF pain G90.519 - Complex regional pain syndrome I of unspecified upper limb, Z79.891 - prison (current) use of opiate analgesic Coding Level of Care Code Est Pt Level 4 (54563) Diagnoses CRPS (complex regional pain syndrome), upper limb G90.519 Opioid contract exists Z79.891 Chronic pain syndrome G89.4 Lumbar spondylosis M47.816
[2023-12-13 08:58] VITALS: BP 130/78; PULSE 82; O2SAT 99; BMI 30.6
== END 2023-12-13 09:14 | disposition home or self-care (01) ==
PROVIDERS: PCP Nurse Practitioner Gerontology; Visit Provider Registered Nurse Emergency
DX: G90.519 Complex regional pain syndrome I of unspecified upper limb (principal); G89.4 Chronic pain syndrome; M47.816 Spondylosis without myelopathy or radiculopathy, lumbar region; Z79.891 Long term (current) use of opiate analgesic
CPT/HCPCS: 99214

== ENCOUNTER → 2023-12-13 08:47 | Outpatient (BNVA) | payer BC, SELFPAY | PROVIDERS: PCP Nurse Practitioner Gerontology; Visit Provider Registered Nurse Emergency ==

== ENCOUNTER 2024-01-10 08:47 | Outpatient (REF) | payer BC, SELFPAY ==
--- NOTE | ~2024-01-10 | XR_ITS ---
EXAMINATION: XR HIP, LEFT CLINICAL INFORMATION: Low back pain, unspecified. COMPARISON: None available. TECHNIQUE: AP view of the pelvis and AP and frog-leg lateral views of the left hip. FINDINGS: No fracture. Alignment is anatomic. Hip joint space is maintained. Soft tissues are unremarkable. Right hip joint is also unremarkable. Pubic symphysis and SI joints are normal in appearance. Degenerative spondylosis is noted in the lower lumbar spine. Soft tissues are unremarkable. XR/XR hip LT w PEL1V IMPRESSION: 1. Normal radiographs of the left hip. 2. Degenerative spondylosis in the lower lumbar spine.
--- NOTE | ~2024-01-10 | XR_ITS ---
EXAMINATION: XR sacroiliac joints XR sacrum/coccyx INDICATION: Reason for Exam M53.3 - Sacrococcygeal disorders, not elsewhere classified COMPARISON: None TECHNIQUE: AP and bilateral oblique views of the SI joints as well as 3 views of the sacrum and coccyx. FINDINGS: Mild osteoarthritis suspected at the SI joints bilaterally, characterized by articular sclerosis. Mild sacroiliitis could also have this appearance. Hip joints appear relatively well-preserved. There is degenerative disc disease in lower lumbar spine with loss of vertebral disc height and facet arthropathy at L4-L5 and L5-S1. No osseous lesions. No fractures. Sacrum and coccyx are intact without appreciable fractures. As in the lateral view, there is significant anterior angulation of the coccyx, potentially due to normal variation. No discrete cortical breaks are identified. XR/XR sacrum coccyx min 2V IMPRESSION: 1. 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 Mild sacroiliitis could also have this appearance. 2. Degenerative disc disease and facet arthropathy in the lower lumbar spine. 3. Anterior angulation of the coccyx, potentially due to normal variation. No appreciable fractures.
--- NOTE | ~2024-01-10 | XR_ITS ---
EXAMINATION: XR sacroiliac joints XR sacrum/coccyx INDICATION: Reason for Exam M53.3 - Sacrococcygeal disorders, not elsewhere classified COMPARISON: None TECHNIQUE: AP and bilateral oblique views of the SI joints as well as 3 views of the sacrum and coccyx. FINDINGS: Mild osteoarthritis suspected at the SI joints bilaterally, characterized by articular sclerosis. Mild sacroiliitis could also have this appearance. Hip joints appear relatively well-preserved. There is degenerative disc disease in lower lumbar spine with loss of vertebral disc height and facet arthropathy at L4-L5 and L5-S1. No osseous lesions. No fractures. Sacrum and coccyx are intact without appreciable fractures. As in the lateral view, there is significant anterior angulation of the coccyx, potentially due to normal variation. No discrete cortical breaks are identified. XR/XR sacroiliac joint min 3V IMPRESSION: 1. 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 Mild sacroiliitis could also have this appearance. 2. Degenerative disc disease and facet arthropathy in the lower lumbar spine. 3. Anterior angulation of the coccyx, potentially due to normal variation. No appreciable fractures.
== END 2024-01-10 08:48 | disposition home or self-care (01) ==
LOC: HO.XRAY 08:47
PROVIDERS: PCP Nurse Practitioner Gerontology; Visit Provider Nurse Practitioner Family
DX: M51.16 Intervertebral disc disorders with radiculopathy, lumbar region (principal); Z91.81 History of falling; M25.552 Pain in left hip; M47.816 Spondylosis without myelopathy or radiculopathy, lumbar region; M46.1 Sacroiliitis, not elsewhere classified
CPT/HCPCS: 72202; 72220; 73502

== ENCOUNTER 2024-01-10 08:47 | Outpatient (AMB) | payer BC, SELFPAY ==
--- NOTE | 2024-01-10 08:50 | A.OFFVIS_ITS ---
Vital Signs 3 01/10/24 09:03 Height 5 ft 11 in Weight 220 lb 6 oz BMI 30.7 BP 130/70 Blood Pressure Location Rt brachial Position Sitting Intake Visit Reasons: PILL COUNT Intake Note: John comes in today for a pill count to oxycodone-acetaminophen, patient should have 36 tablets and presents with 35 tablets which he last took today 01/10/24 at 5am. 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 Patient is supposed to have #36 pills, in his possession has #35 pills. This demonstrates a responsible attitude in regards to the medication regimen. Patient reports mild analgesia due to recent exacerbation of low back pain due to fall in October on his regimen of oxycodone- acetaminophen 5-325 mg TID prn with no noted side effects. Denies any fever, malaise, chest pain, shortness of breaths, abdominal pain, headache, dyspnea, constipation, nausea, sedation, dizziness, or urinary retention. Patient reports ongoing low back pain with radiation into his left buttock and lateral left hip into posterior thigh at the knee level. Reports mild coccyx pain and rosy horses in left buttock and left thigh. Pain increases with prolonged sitting and changing positions and relieved by resting or standing to relieve left buttock pain. Continues to experience significant pain unrelieved with oxycodone, Ibuprofen, tizanidine, ice and heat applications. Pain is rated at 6/10. Denies any fever, abdominal or groin pain, foot drop, weakness, bladder or bowel dysfunction or saddle anesthesia. 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 Patient is prescribed oxycodone acetaminophen 5-325mg take 1 tablet three times daily as needed. Patient arrived today with the expectation of having 30 pills, she presented 32 pills which were counted in the presence of two staff members and returned to the patient in the original prescription bottle. This demonstrates responsible attitude toward patient's opioid medications. Pain is reported today as 5/10 and last dose of pain medication was taken at 04:30 this morning. Patient denies side effects including somnolence, constipation, itching, dyspnea, rash, dizziness or weakness. He suffered slip and fall down some stairs 10/2023, recent MRI results were reviewed, as per below. Patient continues with axial lower back pain without radiation down either leg. Denies burning, numbness, tingling, shooting, zapping or electrical pain. Denies red flag symptoms including new loss of bowel, bladder or saddle anesthesia. Pain worse with movement and twisting. He has never had injections for this pain. Patient reports previous attempt at physical therapy, continues with home exercise program as advised on discharge from PT but pain persists. He is taking his chronic opioids and ibuprofen without relief. 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 Alert and oriented. Mood and affect appropriate. Follows and participates in conversation appropriately. Respiratory effort is unlabored. No cough. Able to transition from sit to stand unassisted. Ambulates with bilaterally normal heel strike and toe off. Right Thumb: Right thumb with graft, with minimal allodynia and color changes with cold rainy weather changes per patient's report. No swelling or redness noted. Back/Spine/Pelvis Other: Limited lumbar range of motion due to pain. Painful facet loading bilaterally. Lumbar extension reproduces moderate pain, lumbar flexion reproduces mild pain. SLR negative. DTR intact +2 and symmetric. LOVE test reproduces left lateral hip and left lower back pain. +Moderate TTP in projection of left SIJ areas. +Eduardo?s, Stinchfield, Pelvic Compression and Gaenslen?s test positive on the left. No groin pain with I/E hip rotations. Valsalva maneuver negative. Cervical Spine: cervical ROM normal and No Cervical spine tenderness Thoracic/Lumbar Spine: thoracic and lumbar spine normal to inspection, No Thoracic/lumbar spine scar(s), Lasegue's sign negative, straight leg raise negative bilaterally, pain with thoraco-lumbar ROM, paraspinal muscle tenderness, No thoracic spinal tenderness and lumbar spinal tenderness (L4-S1) Psych Appearance: grossly normal and well kempt Mental Status: mental status grossly normal Speech and movement: Normal speech and movement present and Clear speech present Affect: normal affect Attitude: cooperative Thought process: Normal thought process present Thought content: Normal thought content present, suicidality (none), no hallucinations and No Depressive thoughts present Insight: Good insight present (Psych) Judgement: Good judgement present (Psych) Results Reviewed Results Reviewed: Assessment & Plan Assessment & Plan (1) Lower back pain: Code(s): M54.50 - Low back pain, unspecified Category: Medical (2) Sacroiliac joint pain: Code(s): M53.3 - Sacrococcygeal disorders, not elsewhere classified Category: Medical (3) Left hip pain: Code(s): M25.552 - Pain in left hip Category: Medical (4) History of recent fall: Code(s): Z91.81 - History of falling Category: Medical (5) Sacroiliac joint pain: Code(s): M53.3 - Sacrococcygeal disorders, not elsewhere classified Category: Medical (6) Left hip pain: Code(s): M25.552 - Pain in left hip Category: Medical (7) History of recent fall: Code(s): Z91.81 - History of falling Category: Medical (8) Coccydynia: Code(s): M53.3 - Sacrococcygeal disorders, not elsewhere classified Category: Medical (9) Sacroiliac joint pain: Code(s): M53.3 - Sacrococcygeal disorders, not elsewhere classified Category: Medical (10) Left hip pain: Code(s): M25.552 - Pain in left hip Category: Medical (11) Lumbar spondylosis: Code(s): M47.816 - Spondylosis without myelopathy or radiculopathy, lumbar region Category: Medical (12) CRPS (complex regional pain syndrome), upper limb: Code(s): G90.519 - Complex regional pain syndrome I of unspecified upper limb Category: Medical (13) Opioid contract exists: Code(s): 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 No obvious signs of diversion, abuse or misuse of the opioid medications. Script sent for Percocet 5-325 mg TID with an advanced date of 01/21/2024. Will add gabapentin, patient will start one tab at bedtime for 3-5 days and advance to Will obtain sacroiliac joint, hip and coccyx xray to assess degree of arthritis, dislocation or fractures. Pain consistent with left sacroiliac joint pain with positive provocative testing and axial low back pain. Patient will return to the clinic to discuss results of the xray findings when it is done and consider interventional therapy as indicated. Patient to follow-up in the office in 1 month for pill count, sooner if needed. All questions and concerns have been answered and patient agrees with the plan. Orders: Orders 2 XR sacroiliac joint min 3V Today M25.552 - Pain in left hip, M53.3 - Sacrococcygeal disorders, not elsewhere classified, Z91.81 - History of falling XR hip LT w PEL1V Today M25.552 - Pain in left hip, M53.3 - Sacrococcygeal disorders, not elsewhere classified, M54.50 - Low back pain, unspecified, Z91.81 - History of falling XR sacrum coccyx min 2V Today M25.552 - Pain in left hip, M53.3 - Sacrococcygeal disorders, not elsewhere classified, Z91.81 - History of falling Medications: New 2 gabapentin 300 mg PO TID 30 days 90 caps 0RF pain M25.552 - Pain in left hip, M47.816 - Spondylosis without myelopathy or radiculopathy, lumbar region, M53.3 - Sacrococcygeal disorders, not elsewhere classified Refilled 2 oxycodone-acetaminophen 5-325 mg Partial Fill upon patient request. 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
[2024-01-10 09:03] VITALS: BP 130/70; BMI 30.7
== END 2024-01-10 09:40 | disposition home or self-care (01) ==
PROVIDERS: PCP Nurse Practitioner Gerontology; Visit Provider Nurse Practitioner Family
DX: M54.50 Low back pain, unspecified (principal); M53.3 Sacrococcygeal disorders, not elsewhere classified; M25.552 Pain in left hip; Z79.891 Long term (current) use of opiate analgesic; Z91.81 History of falling; M47.816 Spondylosis without myelopathy or radiculopathy, lumbar region; G90.519 Complex regional pain syndrome I of unspecified upper limb
CPT/HCPCS: 99214

== ENCOUNTER 2024-02-07 08:43 | Outpatient (AMB) | payer BC, SELFPAY ==
--- NOTE | 2024-02-07 08:45 | A.OFFVIS_ITS ---
Vital Signs 3 02/07/24 08:54 Height 5 ft 11 in Weight 216 lb 2 oz BMI 30.1 BP 128/62 Blood Pressure Location Rt brachial Position Sitting Pulse 67 Pulse Source Pulse Oximeter Pulse Oximetry (%) 99 Oxygen Delivery Method Room Air Intake Visit Reasons: PILL COUNT Intake Note: John comes in today for a pill count to oxycodone-acetaminophen, patient should have 39 tablets and presents with 40 tablets which he last took last night at 02/06/24 at 6pm. Pain today 10/20. Allergies No Known Allergies Allergy (Verified 02/07/24 08:55) HPI Comments Details: Patient presents today for a pill count. Patient is supposed to have #39 pills, in his possession has #40 pills. This demonstrates a responsible attitude in regards to the medication regimen. Patient reports adequate analgesia on his regimen of oxycodone-acetaminophen 5-325 mg TID prn with no noted side effects. Patient reports gabapentin has been causing drowsiness and dizziness, with minimal symptom relief. He is taking it mostly at bedtime but not every day. Patient reports lidocaine patches and tizanidine have been beneficial and requests refills. Patient is scheduled to undergo diagnostic sacroiliac joint injection on 03/11/24. Denies any fever, malaise, chest pain, shortness of breaths, abdominal pain, headache, dyspnea, constipation, nausea, sedation, dizziness, or urinary retention. 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 Alert and oriented. Mood and affect appropriate. Follows and participates in conversation appropriately. Respiratory effort is unlabored. No cough. Able to transition from sit to stand unassisted. Ambulates with bilaterally normal heel strike and toe off. Right Thumb: Right thumb with graft, with minimal allodynia. No swelling or redness noted. Back/Spine/Pelvis Other: Mildly limited lumbar range of motion due to pain. Positive facet loading bilaterally. SLR negative. DTR intact +2 and symmetric. LOVE test reproduces left lateral hip and left lower back pain. +Mild-moderate TTP in projection of left SIJ areas. +Eduardo?s, Stinchfield, Pelvic Compression and Gaenslen?s test positive on the left, negative on the right. No groin pain with I/E hip rotations. Cervical Spine: cervical ROM normal, cervical muscular tenderness and No Cervical spine tenderness Thoracic/Lumbar Spine: thoracic and lumbar spine normal to inspection, No Thoracic/lumbar spine scar(s), Lasegue's sign negative, straight leg raise negative bilaterally, pain with thoraco-lumbar ROM, paraspinal muscle tenderness, No thoracic spinal tenderness and lumbar spinal tenderness (L4-S1) Pelvis: buttock tenderness on the left Sacroiliac joints: on the right nontender and on the left tender to palpation Psych Appearance: grossly normal and well kempt Mental Status: mental status grossly normal Speech and movement: Normal speech and movement present and Clear speech present Affect: normal affect Attitude: cooperative Thought process: Normal thought process present Thought content: Normal thought content present, suicidality (none), no hallucinations and No Depressive thoughts present Insight: Good insight present (Psych) Judgement: Good judgement present (Psych) Results Reviewed Results Reviewed: Assessment & Plan Assessment & Plan (1) Lower back pain: Code(s): M54.50 - Low back pain, unspecified Category: Medical (2) Sacroiliac joint pain: Code(s): M53.3 - Sacrococcygeal disorders, not elsewhere classified Category: Medical (3) Lumbar spondylosis: Code(s): M47.816 - Spondylosis without myelopathy or radiculopathy, lumbar region Category: Medical (4) CRPS (complex regional pain syndrome), upper limb: Code(s): G90.519 - Complex regional pain syndrome I of unspecified upper limb Category: Medical (5) Opioid contract exists: Code(s): Z79.891 - [facility] (current) use of opiate analgesic Category: Medical Plan Masspat was reviewed and without concerns. No obvious signs of diversion, abuse or misuse of the opioid medications. Script sent for Percocet 5-325 mg TID with an advanced date of 02/19/2024. Continue gabapentin prn. Refills provided for lidocaine patches and tizanidine. Proceed with left SIJ injection as scheduled on 03/11/24. Our office will notify patient if earlier date becomes available. All questions and concerns have been answered and patient agrees with the plan. Patient to follow-up in the office in 1 month for pill count, sooner if needed. Medications: Refilled 2 lidocaine 5% 1 patch topically; 30 days 30 ea 8RF pain M47.816 - Spondylosis without myelopathy or radiculopathy, lumbar region, M54.50 - Low back pain, unspecified tizanidine 4 mg PO Q8H PRN 270 tabs 1RF for muscle spasm M54.50 - Low back pain, unspecified, M62.830 - Muscle spasm of back oxycodone-acetaminophen 5-325 mg Partial Fill upon patient request. 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
[2024-02-07 08:54] VITALS: BP 128/62; PULSE 67; O2SAT 99; BMI 30.1
== END 2024-02-07 09:04 | disposition home or self-care (01) ==
LOC: HO.PMC 08:43
PROVIDERS: PCP Nurse Practitioner Gerontology; Visit Provider Nurse Practitioner Family
DX: M54.50 Low back pain, unspecified (principal); M53.3 Sacrococcygeal disorders, not elsewhere classified; M47.816 Spondylosis without myelopathy or radiculopathy, lumbar region; Z79.891 Long term (current) use of opiate analgesic; G90.519 Complex regional pain syndrome I of unspecified upper limb
CPT/HCPCS: 99214

== ENCOUNTER → 2024-02-07 08:43 | Outpatient (BNVA) | payer BC, SELFPAY | PROVIDERS: PCP Nurse Practitioner Gerontology; Visit Provider Nurse Practitioner Family ==

== ENCOUNTER → 2024-03-06 08:46 | Outpatient (BNVA) | payer BC, SELFPAY | PROVIDERS: PCP Nurse Practitioner Gerontology; Visit Provider Nurse Practitioner Family ==

== ENCOUNTER 2024-03-11 07:11 | Outpatient (REF) | payer BC, SELFPAY ==
--- NOTE | ~2024-03-11 | FL_ITS ---
EXAMINATION: XR FLUOROSCOPY WITH IMAGES CLINICAL INFORMATION: Sacrococcygeal disorders, not elsewhere classified. COMPARISON: MR Lumbar 11/22/2023. TECHNIQUE: Fluoroscopy provided to: Dr. Ruffin Fluoroscopy time: 0.1 minutes DAP: 0.0276 mGycm2 Images: 1 FINDINGS: Solitary PA image of the left SI joint shows needle within the synovial left SI joint with contrast injection and venous intravasation. FL/FL guidance in treatment room IMPRESSION: Fluoroscopic guidance. Please refer to the full operative report for details. Electronically signed by: Yury Britt MD 05/08/2024 08:41 AM EDT
== END 2024-03-11 07:12 | disposition home or self-care (01) ==
LOC: CF 07:11
PROVIDERS: Visit Provider Anesthesiology
DX: M53.3 Sacrococcygeal disorders, not elsewhere classified (principal); M54.50 Low back pain, unspecified; M47.816 Spondylosis without myelopathy or radiculopathy, lumbar region; Z79.891 Long term (current) use of opiate analgesic
CPT/HCPCS: 27096; J2795; Q9967

== ENCOUNTER 2024-03-11 10:25 | Outpatient (AMB) | payer BC, SELFPAY ==
[2024-03-11 10:29] VITALS: BP 151/81; PULSE 58; RESP 17; O2SAT 99
--- NOTE | 2024-03-11 10:29 | A.OFFVIS_ITS ---
Vital Signs 03/11/24 10:29 03/11/24 11:27 BP 151/81 H 145/90 H Blood Pressure Location Rt brachial Rt brachial Position Sitting Sitting Respiration 17 Pulse 58 64 Pulse Source Pulse Oximeter Pulse Oximeter Pulse Oximetry (%) 99 98 Oxygen Delivery Method Room Air Room Air Comment Pre-op Post-op Intake Visit Reasons: left diagnostic sij joint injection Allergies No Known Allergies Allergy (Verified 03/06/24 08:57) [facility] Medical History alf (current) use of opiate analgesic CRPS (complex regional pain syndrome), upper limb Preventative health care Obesity, Class I, BMI 30.0-34.9 (see actual BMI) Morbid obesity Hypertension Allergic reaction Acute pharyngitis Acute allergic serous otitis media Surgical History History of partial amputation of hand Physical Exam Vital Signs: Last Vital Signs Pulse 64 03/11/24 11:27 Resp 17 03/11/24 10:29 BP 145/90 H 03/11/24 11:27 Pulse Ox 98 03/11/24 11:27 Oxygen Delivery Method Room Air 03/11/24 11:27 Assessment & Plan Assessment & Plan (1) Lower back pain: Code(s): M54.50 - Low back pain, unspecified Category: Medical (2) Sacroiliac joint pain: Code(s): M53.3 - Sacrococcygeal disorders, not elsewhere classified Category: Medical Plan: Left diagnostic sacroiliac joint injection Informed consent was explained thoroughly to the patient. All questions about benefits and risks for the procedure were answered. Patient came to the operating room and was positioned prone on the operating table with the pillow under the pelvis. Time out was performed delineating name and of the patient, allergies and the nature of the procedure. The lower back and buttocks of the patient were prepped with ChloraPrep prepped and draped with sterile utility towels. C-arm was brought over the operating field and sq picture of patient's pelvis was demonstrated on the screen. For the left joint tilting C-arm contralateral to the site of the joint the most posterior portion of the joints was superimposed with anterior silhouette of the joint. Skin was injected in the projection of the joint slightly medial to the location of the joint with 25 gauge 1/2 inch needle using local lidocaine 2% .After that 22 gauge 3 and 1/2 inch needle was driven to the right joint in tunnel vision fashion. When needle entered the joint capsule injection of the contrast was performed demonstrating intra-articular and minimally periarticular spread of the contrast. After that 4 cc. of ropivacaine 0.5% was injected into the joint. Upon completion of the injections the needle was removed Sterile dressing was applied. Upon completion of the injection patient was taken out side of the operating room to the recovery room where recovered uneventfully. 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 No obvious signs of diversion, abuse or misuse of the opioid medications. Script sent for Percocet 5-325 mg TID with an advanced date of 02/19/2024. Continue gabapentin prn. Refills provided for lidocaine patches and tizanidine. Proceed with left SIJ injection as scheduled on 03/11/24. Our office will notify patient if earlier date becomes available. All questions and concerns have been answered and patient agrees with the plan. Patient to follow-up in the office in 1 month for pill count, sooner if needed. Orders: Orders FL guidance in treatment room Today M53.3 - Sacrococcygeal disorders, not elsewhere classified Coding Level of Care Code Procedure Only Diagnoses Lower back pain M54.50 Sacroiliac joint pain M53.3 Lumbar spondylosis M47.816 CRPS (complex regional pain syndrome), upper limb G90.519 Opioid contract exists Z79.891
[2024-03-11 11:27] VITALS: BP 145/90; PULSE 64; O2SAT 98
== END 2024-03-11 11:28 | disposition home or self-care (01) ==
LOC: HO.PMCPRC 10:25
PROVIDERS: PCP Nurse Practitioner Gerontology; Referring Provider Nurse Practitioner Gerontology; Visit Provider Anesthesiology
DX: M54.50 Low back pain, unspecified (principal); M53.3 Sacrococcygeal disorders, not elsewhere classified; M47.816 Spondylosis without myelopathy or radiculopathy, lumbar region; G90.519 Complex regional pain syndrome I of unspecified upper limb; Z79.891 Long term (current) use of opiate analgesic
CPT/HCPCS: 27096

== ENCOUNTER 2024-03-20 10:16 | Outpatient (AMB) | payer BC, SELFPAY ==
--- NOTE | 2024-03-20 10:16 | A.OFFVIS_ITS ---
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 Ruffin. Patient reports 90-100% pain relief for first 24 hours and ongoing 70% pain relief since the procedure with improvement in his daily activities and functioning, mobility and sleep. We discussed therapeutic injections, neuromodulation with Curonix PNS trial and SI joint RFA procedure as next steps for a longer term pain relief. Patient would like to monitor his left-sided SI joint symptoms as he continues to report significant pain relief since injections. He is aware a diagnostic injection is not sustainable and will notify our office when his pain returns to baseline. Denies any recent cough, cold, infection, fever, any significant changes in her medical history, medications or recent hospitalizations. except recent self-resolved stomach bug and has been feeling much better. 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 CRPS (complex regional pain syndrome), upper limb Preventative health care Obesity, Class I, BMI 30.0-34.9 (see actual BMI) Morbid obesity Hypertension Allergic reaction Acute pharyngitis Acute allergic serous otitis media Surgical History History of partial amputation of hand Review of Systems Const All systems reviewed & are unremarkable except as noted in HPI and below ENT Reports Normal hearing present Neuro Reports Normal hearing present and Denies confusion Psych Denies confusion Physical Exam Vital Signs: BMI result Body Mass Index 30.5 Const General: cooperative, alert and awake; No confusion Orientation/consciousness: patient oriented x3 and No confusion Resp Effort & Inspection: able to speak in complete sentences, no audible wheezes and no cough Neuro General: patient oriented x3 and No confusion Cranial nerves: Yes Normal hearing present Cognition (Neuro): normal cognition Psych Mental Status: mental status grossly normal Speech and movement: Clear speech present Affect: normal affect Attitude: cooperative Thought process: Normal thought process present Thought content: Normal thought content present and No Depressive thoughts present Insight: Good insight present (Psych) Judgement: Good judgement present (Psych) Telehealth Telehealth Telehealth Platform: Telephone Location of provider rendering services: practice address Location of patient: address on file Patient Identification confirmed using: Name, : Yes Telehealth method: voice only Patient verbally consented to treatment: Yes Patient verbally consented to billing insurance company: Yes Patient informed of any privacy concerns related to visit: Yes Minutes spent on Phone/Video with Pt.: 6 Results Reviewed Results Reviewed: XR sacroiliac joints XR sacrum/coccyx 01/10/24 INDICATION: Reason for Exam M53.3 - Sacrococcygeal disorders, not elsewhere classified FINDINGS: Mild osteoarthritis suspected at the SI joints bilaterally, characterized by articular sclerosis. Mild sacroiliitis could also have this appearance. Hip joints appear relatively well-preserved. There is degenerative disc disease in lower lumbar spine with loss of vertebral disc height and facet arthropathy at L4-L5 and L5-S1. No osseous lesions. No fractures. Sacrum and coccyx are intact without appreciable fractures. As in the lateral view, there is significant anterior angulation of the coccyx, potentially due to normal variation. No discrete cortical breaks are identified. IMPRESSION: 1. 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 Mild sacroiliitis could also have this appearance. 2. Degenerative disc disease and facet arthropathy in the lower lumbar spine. 3. Anterior angulation of the coccyx, potentially due to normal variation. No appreciable fractures. Assessment & Plan Assessment & Plan (1) Sacroiliac joint pain: Code(s): M53.3 - Sacrococcygeal disorders, not elsewhere classified Category: Medical (2) Lumbar spondylosis: Code(s): M47.816 - Spondylosis without myelopathy or radiculopathy, lumbar region Category: Medical Plan Patient is status post left diagnostic sacroiliac joint injection with good results. We discussed therapeutic injections, neuromodulation with Curonix PNS trial and SI joint RFA procedure as next steps for a longer term pain relief. Patient would like to monitor his left-sided SI joint symptoms as he continues to report significant pain relief since recent injection. He is aware a diagnostic injection is not sustainable for therapeutic effects and will notify our office when his pain returns to baseline. All questions and concerns have been answered and patient agreed with the treatment plan. Follow up for pill count as scheduled and sooner as needed. I hereby testify that I spent 6 minutes in conversation with this patient as well as with planning and coordinating care for this patient and organizing this note. Coding Level of Care Code Tele Est Pt Level 3 (41365) Diagnoses Sacroiliac joint pain M53.3 Lumbar spondylosis M47.816
[2024-03-20 10:17] VITALS: BMI 30.5
== END 2024-03-20 10:22 | disposition home or self-care (01) ==
LOC: HO.PMC 10:16
PROVIDERS: PCP Nurse Practitioner Gerontology; Visit Provider Nurse Practitioner Family
DX: M53.3 Sacrococcygeal disorders, not elsewhere classified (principal); M47.816 Spondylosis without myelopathy or radiculopathy, lumbar region
CPT/HCPCS: 99213

== ENCOUNTER → 2024-03-20 10:16 | Outpatient (BNVA) | payer BC, SELFPAY | PROVIDERS: PCP Nurse Practitioner Gerontology; Visit Provider Nurse Practitioner Family ==

== ENCOUNTER → 2024-04-03 08:49 | Outpatient (BNVA) | payer BC, SELFPAY | PROVIDERS: PCP Nurse Practitioner Gerontology; Visit Provider Nurse Practitioner Family ==

== ENCOUNTER 2024-05-01 08:48 | Outpatient (AMB) | payer BC, SELFPAY ==
--- NOTE | 2024-05-01 08:52 | MHC.OFFVIS ---
Vital Signs 05/01/24 09:02 Height 5 ft 11 in Weight 219 lb 8 oz BMI 30.6 BP 132/80 Blood Pressure Location Rt brachial Position Sitting Pulse 82 Pulse Source Pulse Oximeter Pulse Oximetry (%) 99 Oxygen Delivery Method Room Air Intake Visit Reasons: Pill Count/Random UDS Intake Note: John comes in today for a pill count to oxycodone-acetaminophen, patient should have 54 tablets and presents with 54 tablets which he last took last night 04/30/24 at 10pm. Pain today 09/22 Patient will also have a random UDS done today, aware that he needs to go to the lab on the first floor of this building today 05/01/24 before 12pm. 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 Patient is supposed to have #54 pills, in his possession has #54 pills. This demonstrates a responsible attitude in regards to the medication regimen. Patient reports adequate analgesia on his regimen of oxycodone-acetaminophen 5-325 mg TID prn with no noted side effects. Denies any fever, chilss, malaise, chest pain, shortness of breaths, abdominal pain, headache, dyspnea, constipation, nausea, sedation, dizziness, or urinary retention. 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 CRPS (complex regional pain syndrome), upper limb Preventative health care Obesity, Class I, BMI 30.0-34.9 (see actual BMI) Morbid obesity Hypertension Allergic reaction Acute pharyngitis Acute allergic serous otitis media Surgical History History of partial amputation of hand Review of Systems Const All systems reviewed & are unremarkable except as noted in HPI and below Physical Exam Vital Signs: Last Vital Signs Pulse 82 05/01/24 09:02 BP 132/80 05/01/24 09:02 Pulse Ox 99 05/01/24 09:02 Oxygen Delivery Method Room Air 09/19/24 09:02 BMI result Body Mass Index 30.6 General: Appears afebrile. Alert and oriented. Mood and affect appropriate. Follows and participates in conversation appropriately. Respiratory effort is unlabored. No cough. Able to transition from sit to stand unassisted. Ambulates with bilaterally normal heel strike and toe off. Right Thumb: Right thumb with graft, with minimal allodynia and color changes with cold rainy weather changes per patient's report. No swelling or redness noted. Psych Appearance: grossly normal and well kempt Mental Status: mental status grossly normal Speech and movement: Normal speech and movement present and Clear speech present Affect: normal affect Attitude: cooperative Thought process: Normal thought process present Thought content: Normal thought content present, suicidality (none), no hallucinations and No Depressive thoughts present Insight: Good insight present (Psych) Judgement: Good judgement present (Psych) Results Reviewed Results Reviewed: XR sacroiliac joints XR sacrum/coccyx 01/10/24 INDICATION: Reason for Exam M53.3 - Sacrococcygeal disorders, not elsewhere classified FINDINGS: Mild osteoarthritis suspected at the SI joints bilaterally, characterized by articular sclerosis. Mild sacroiliitis could also have this appearance. Hip joints appear relatively well-preserved. There is degenerative disc disease in lower lumbar spine with loss of vertebral disc height and facet arthropathy at L4-L5 and L5-S1. No osseous lesions. No fractures. Sacrum and coccyx are intact without appreciable fractures. As in the lateral view, there is significant anterior angulation of the coccyx, potentially due to normal variation. No discrete cortical breaks are identified. IMPRESSION: 1. 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 Mild sacroiliitis could also have this appearance. 2. Degenerative disc disease and facet arthropathy in the lower lumbar spine. 3. Anterior angulation of the coccyx, potentially due to normal variation. No appreciable fractures. 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 No obvious signs of diversion, abuse or misuse of the opioid medications. Script sent for Percocet 5-325 mg TID with an advanced date of 05/17/24. Continue gabapentin prn. Continue lidocaine patches and tizanidine as needed. All questions and concerns have been answered and patient agrees with the plan. Patient to follow-up in the office in 1 month for pill count/UDS review and sooner if needed. Medications: Refilled oxycodone-acetaminophen 5-325 mg Partial Fill upon patient request. 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
[2024-05-01 09:02] VITALS: BP 132/80; PULSE 82; O2SAT 99; BMI 30.6
== END 2024-05-01 09:15 | disposition home or self-care (01) ==
PROVIDERS: PCP Nurse Practitioner Gerontology; Visit Provider Nurse Practitioner Family
DX: M53.3 Sacrococcygeal disorders, not elsewhere classified (principal); M47.816 Spondylosis without myelopathy or radiculopathy, lumbar region; G90.519 Complex regional pain syndrome I of unspecified upper limb; Z79.891 Long term (current) use of opiate analgesic
CPT/HCPCS: 99214

== ENCOUNTER → 2024-05-01 08:48 | Outpatient (BNVA) | payer BC, SELFPAY | PROVIDERS: PCP Nurse Practitioner Gerontology; Visit Provider Nurse Practitioner Family ==

== ENCOUNTER 2024-05-29 08:49 | Outpatient (AMB) | payer BC, SELFPAY ==
--- NOTE | 2024-05-29 08:50 | A.OFFVIS_ITS ---
Vital Signs 05/29/24 08:56 Height 5 ft 11 in Weight 219 lb 4 oz BMI 30.6 BP 132/78 Blood Pressure Location Rt brachial Position Sitting Pulse 72 Pulse Source Pulse Oximeter Pulse Oximetry (%) 99 Oxygen Delivery Method Room Air Intake Visit Reasons: PILL COUNT Intake Note: John comes in today for a pill count to oxycodone-acetaminophen, patient should have 54 tablets and presents with 54 tablets which he last took last night 06/07/24 at 10pm. Pain today 09/22. 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 Patient is supposed to have #54 pills, in his possession has #54 pills. This demonstrates a responsible attitude in regards to the medication regimen. Patient reports mild to moderate analgesia on his regimen of oxycodone-acetaminophen 5-325 mg TID prn with no noted side effects. Patient reports increased left sided low back pain with movements, bending, lifting, cold weather and sleep. He has been regularly taking Ibuprofen, alternating heat and ice and doing stretching exercises with partial relief. Lidocaine patches were helpful but no longer approved by his insurance. Pain is most severe in the morning through noon and less severe by evening. Denies any weakness, foot drop, bladder or bowel dysfunction or saddle anesthesia. Denies any fever, chills, malaise, chest pain, shortness of breaths, abdominal pain, headache, dyspnea, constipation, nausea, sedation, dizziness, or urinary retention. 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 Alert and oriented. Mood and affect appropriate. Follows and participates in conversation appropriately. Respiratory effort is unlabored. No cough. Able to transition from sit to stand unassisted. Ambulates with bilaterally normal heel strike and toe off. Right Thumb: Right thumb with graft, with mild allodynia and color changes with cold temperature and cold weather changes per patient's report. No swelling or redness noted. General: Yes no CVA tenderness Back/Spine/Pelvis Back: no CVA tenderness Cervical Spine: cervical ROM normal and No Cervical spine tenderness Thoracic/Lumbar Spine: thoracic and lumbar spine normal to inspection, No Thoracic/lumbar spine scar(s), Lasegue's sign negative, straight leg raise negative bilaterally, pain with thoraco-lumbar ROM, paraspinal muscle tenderness on the left greater than right, thoraco-lumbar ROM limited, No thoracic spinal tenderness and lumbar spinal tenderness at L4 and at L5 Pelvis: buttock tenderness on the left and no sciatic notch tenderness Sacroiliac joints: bilaterally tender to palpation Extrem General: Yes capillary refill normal, Yes no clubbing, cyanosis or edema and Yes no calf tenderness Psych Appearance: grossly normal and well kempt Mental Status: mental status grossly normal Speech and movement: Normal speech and movement present and Clear speech present Affect: normal affect Attitude: cooperative Thought process: Normal thought process present Thought content: Normal thought content present, suicidality (none), no hallucinations and No Depressive thoughts present Insight: Good insight present (Psych) Judgement: Good judgement present (Psych) Results Reviewed Results Reviewed: XR sacroiliac joints XR sacrum/coccyx 01/10/24 INDICATION: Reason for Exam M53.3 - Sacrococcygeal disorders, not elsewhere classified FINDINGS: Mild osteoarthritis suspected at the SI joints bilaterally, characterized by articular sclerosis. Mild sacroiliitis could also have this appearance. Hip joints appear relatively well-preserved. There is degenerative disc disease in lower lumbar spine with loss of vertebral disc height and facet arthropathy at L4-L5 and L5-S1. No osseous lesions. No fractures. Sacrum and coccyx are intact without appreciable fractures. As in the lateral view, there is significant anterior angulation of the coccyx, potentially due to normal variation. No discrete cortical breaks are identified. IMPRESSION: 1. 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 Mild sacroiliitis could also have this appearance. 2. Degenerative disc disease and facet arthropathy in the lower lumbar spine. 3. Anterior angulation of the coccyx, potentially due to normal variation. No appreciable fractures. 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 No obvious signs of diversion, abuse or misuse of the opioid medications. Script sent for increased dose of Percocet 5-325 mg TID to QID with an advanced date of 06/10/24 as current regimine does not provide him adequate analgesia on most days. Continue NSAID and muscle relaxant prn, heat/ice, stretching exercises for low back pain. Script provided for Salonpas patches. Patient is aware to call if low back pain worsens or if he develops any red flag symptoms to seek emergency care. All questions and concerns have been answered and patient agrees with the plan. Follow up in 4-5 weeks for pill count and sooner if needed. Medications: New camphor-methyl salicyl-menthol 3.1 %-10 %-6 % (large) (Salonpas) may leave on for up to 12 hrs 1 patch topical DAILY 6 ea 3RF pain M47.816 - Spondylosis without myelopathy or radiculopathy, lumbar region, M54.50 - Low back pain, unspecified Changed From oxycodone-acetaminophen 5-325 mg Partial Fill upon patient request. 1 tab PO TID 30 days PRN 90 tabs 0RF pain G90.519 - Complex regional pain syndrome I of unspecified upper limb, M47.816 - Spondylosis without myelopathy or radiculopathy, lumbar region, M54.50 - Low back pain, unspecified, Z79.891 - detention (current) use of opiate analgesic To oxycodone-acetaminophen 5-325 mg Partial Fill upon patient request. 1 tab PO Q6H 30 days PRN 120 tabs 0RF pain G90.519 - Complex regional pain syndrome I of unspecified upper limb, M47.816 - Spondylosis without myelopathy or radiculopathy, lumbar region, M54.50 - Low back pain, unspecified, Z79.891 - terminal operations supervisor (current) use of opiate a nalgesic Coding Level of Care Code Est Pt Level 4 (45106) Complex EM visit Add On G2211 Diagnoses Lower back pain M54.50 Lumbar spondylosis M47.816 Sacroiliac joint pain M53.3 CRPS (complex regional pain syndrome), upper limb G90.519 Opioid contract exists Z79.891
[2024-05-29 08:56] VITALS: BP 132/78; PULSE 72; O2SAT 99; BMI 30.6
== END 2024-05-29 09:07 | disposition home or self-care (01) ==
PROVIDERS: PCP Nurse Practitioner Gerontology; Visit Provider Nurse Practitioner Family
DX: M54.50 Low back pain, unspecified (principal); M47.816 Spondylosis without myelopathy or radiculopathy, lumbar region; M53.3 Sacrococcygeal disorders, not elsewhere classified; G90.519 Complex regional pain syndrome I of unspecified upper limb; Z79.891 Long term (current) use of opiate analgesic
CPT/HCPCS: 99214

== ENCOUNTER → 2024-05-29 08:49 | Outpatient (BNVA) | payer BC, SELFPAY | PROVIDERS: PCP Nurse Practitioner Gerontology; Visit Provider Nurse Practitioner Family ==

== ENCOUNTER 2024-07-03 08:43 | Outpatient (AMB) | payer BC, SELFPAY ==
--- NOTE | 2024-07-03 08:45 | A.OFFVIS_ITS ---
Vital Signs 07/03/24 08:54 Height 5 ft 11 in Weight 220 lb 6 oz BMI 30.7 BP 124/70 Blood Pressure Location Rt brachial Position Sitting Pulse 78 Pulse Source Pulse Oximeter Pulse Oximetry (%) 97 Oxygen Delivery Method Room Air Intake Visit Reasons: PILL COUNT Intake Note: John comes in today for a pill count to oxycodone-acetaminophen, patient should have 28 tablets and presents with 34 tablets which he last took last night 07/03/24 at 9pm. 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 Patient is supposed to have #28 pills, in his possession has #34 pills. This demonstrates a responsible attitude in regards to the medication regimen. Patient reports reasonable analgesia on his regimen of oxycodone-acetaminophen 5-325 mg QID prn with no noted side effects. Patient reports increase in right knee pain with tenderness and pain localized to medial joint line. He reports good relief with cortisone injections 2-3 years ago but cannot recall if this was through [facility] or [facility]. Patient reports knee xrays and MRIs were also completed around that time, these reports are not available for review today. He has been applying ice, rest, elevation and taking Ibuprofen with temporary and partial relief. Patient is interested in cortisone injection for right knee pain due to OA. Denies any knee locking or buckling, weakness, burning, numbness or tingling, radiating back pain, bladder or bowel dysfunction or saddle anesthesia. Denies any fever, chills, malaise, chest pain, shortness of breaths, abdominal pain, headache, dyspnea, constipation, nausea, sedation, dizziness, or urinary retention. Past Procedures: 03/11/24: Left diagnostic sacroiliac joint injection: 90-100% pain relief for 24 hours, ongoing 70% pain relief [facility] Medical History long-term (current) use of opiate analgesic CRPS (complex regional pain syndrome), upper limb Preventative health care Obesity, Class I, BMI 30.0-34.9 (see actual BMI) Morbid obesity Hypertension Allergic reaction Acute pharyngitis Acute allergic serous otitis media Surgical History History of partial amputation of hand Review of Systems Const All systems reviewed & are unremarkable except as noted in HPI and below Physical Exam Vital Signs: Last Vital Signs Pulse 78 07/03/24 08:54 BP 124/70 07/03/24 08:54 Pulse Ox 97 07/03/24 08:54 Oxygen Delivery Method Room Air 07/03/24 08:54 BMI result Body Mass Index 30.7 General: Appears afebrile. Alert and oriented. Mood and affect appropriate. Follows and participates in conversation appropriately. Respiratory effort is unlabored. No cough. Able to transition from sit to stand unassisted. Ambulates with bilaterally normal heel strike and toe off. Right Thumb: Right thumb with graft, with mild allodynia and mild color changes with cold temperature and cold weather changes per patient's report. No swelling or redness noted. General: Yes no CVA tenderness Back/Spine/Pelvis Back: no CVA tenderness Cervical Spine: cervical ROM normal and No Cervical spine tenderness Thoracic/Lumbar Spine: thoracic and lumbar spine normal to inspection, No Thoracic/lumbar spine scar(s), Lasegue's sign negative, straight leg raise negative bilaterally, pain with thoraco-lumbar ROM, paraspinal muscle tenderness on the left greater than right, thoraco-lumbar ROM limited, No thoracic spinal tenderness and lumbar spinal tenderness at L4 and at L5 Pelvis: buttock tenderness on the left and no sciatic notch tenderness Sacroiliac joints: bilaterally tender to palpation Extrem General: Yes capillary refill normal, Yes no clubbing, cyanosis or edema and Yes no calf tenderness Right lower extremity: knee Details: normal to inspection, tenderness Location: of the patella and of the medial joint line, normal ROM and crepitus; no swelling, no ecchymosis, no deformity and no unusual warmth Psych Appearance: grossly normal and well kempt Mental Status: mental status grossly normal Speech and movement: Normal speech and movement present and Clear speech present Affect: normal affect Attitude: cooperative Thought process: Normal thought process present Thought content: Normal thought content present, suicidality (none), no hallucinations and No Depressive thoughts present Insight: Good insight present (Psych) Judgement: Good judgement present (Psych) Results Reviewed Results Reviewed: No imaging reports are available for review. Assessment & Plan Assessment & Plan (1) Lumbar spondylosis: Code(s): M47.816 - Spondylosis without myelopathy or radiculopathy, lumbar region Category: Medical (2) CRPS (complex regional pain syndrome), upper limb: Code(s): G90.519 - Complex regional pain syndrome I of unspecified upper limb Category: Medical (3) Opioid contract exists: Code(s): Z79.891 - long-term (current) use of opiate analgesic Category: Medical (4) Right knee pain: Code(s): M25.561 - Pain in right knee Category: Medical (5) Osteoarthritis of right knee: Code(s): M17.11 - Unilateral primary osteoarthritis, right knee Category: Medical Plan Masspat was reviewed and without concerns. No obvious signs of diversion, abuse or misuse of the opioid medications. Script sent for Percocet 5-325 mg QID with an advanced date of 07/10/24. Continue NSAID and muscle relaxant prn, heat/ice, stretching exercises for low back and right knee pain. Schedule right knee intra-articular steroid injection with local and fluoroscopy. Expectations, risks and benefits were reviewed. Patient is aware he will be contacted to schedule this procedure. Request sent to [facility] and [facility] for previous knee xray/MRI and injections. All questions and concerns have been answered and patient agrees with the plan. Follow up in 4 weeks for pill count and sooner if needed. Medications: Refilled oxycodone-acetaminophen 5-325 mg Partial Fill upon patient request. 1 tab PO Q6H 30 days PRN 120 tabs 0RF pain G90.519 - Complex regional pain syndrome I of unspecified upper limb, M47.816 - Spondylosis without myelopathy or radiculopathy, lumbar region, M54.50 - Low back pain, unspecified, Z79.891 - long-term (current) use of opiate analgesic Coding Level of Care Code Est Pt Level 4 (88696) Complex EM visit Add On G2211 Diagnoses Lumbar spondylosis M47.816 CRPS (complex regional pain syndrome), upper limb G90.519 Opioid contract exists Z79.891 Right knee pain M25.561 Osteoarthritis of right knee M17.11
[2024-07-03 08:54] VITALS: BP 124/70; PULSE 78; O2SAT 97; BMI 30.7
== END 2024-07-03 09:14 | disposition home or self-care (01) ==
PROVIDERS: PCP Nurse Practitioner Gerontology; Visit Provider Nurse Practitioner Family
DX: M47.816 Spondylosis without myelopathy or radiculopathy, lumbar region (principal); G90.519 Complex regional pain syndrome I of unspecified upper limb; Z79.891 Long term (current) use of opiate analgesic; M25.561 Pain in right knee; M17.11 Unilateral primary osteoarthritis, right knee
CPT/HCPCS: 99214

== ENCOUNTER → 2024-07-03 08:43 | Outpatient (BNVA) | payer BC, SELFPAY | PROVIDERS: PCP Nurse Practitioner Gerontology; Visit Provider Nurse Practitioner Family ==

== ENCOUNTER 2024-07-31 08:25 | Outpatient (AMB) | payer BC, SELFPAY ==
--- NOTE | 2024-07-31 08:29 | MHC.OFFVIS ---
Vital Signs 07/31/24 08:40 Height 5 ft 11 in Weight 218 lb BMI 30.4 BP 130/72 Blood Pressure Location Rt brachial Position Sitting Pulse 72 Pulse Source Pulse Oximeter Pulse Oximetry (%) 98 Oxygen Delivery Method Room Air Intake Visit Reasons: Medication Count Intake Note: John comes in today for a pill count to oxycodone-acetaminophen, patient should have 40 tablets and presents with 48 tablets which he last took today 07/31/24 at 4am. 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 Patient is supposed to have #40 pills, in his possession has #48 pills. This demonstrates a responsible attitude in regards to the medication regimen. Patient reports reasonable analgesia on his regimen of oxycodone-acetaminophen 5-325 mg QID prn with no noted side effects. Patient reports current medication regime allows him to less symptomatic and more functional. Patient reports his right knee pain has been responding to conservative measures, especially with ice pack applications so he cancelled recent therapeutic injection. Denies any fever, chills, malaise, chest pain, shortness of breaths, abdominal pain, headache, dyspnea, constipation, nausea, sedation, dizziness, or urinary retention. Past Procedures: 03/11/24: Left diagnostic sacroiliac joint injection: 90-100% pain relief for 24 hours, ongoing 70% pain relief [facility] Medical History intermediate (current) use of opiate analgesic CRPS (complex regional pain syndrome), upper limb Preventative health care Obesity, Class I, BMI 30.0-34.9 (see actual BMI) Morbid obesity Hypertension Allergic reaction Acute pharyngitis Acute allergic serous otitis media Surgical History History of partial amputation of hand Review of Systems Const All systems reviewed & are unremarkable except as noted in HPI and below Physical Exam Vital Signs: Last Vital Signs Pulse 72 07/31/24 08:40 BP 130/72 07/31/24 08:40 Pulse Ox 98 07/31/24 08:40 Oxygen Delivery Method Room Air 07/31/24 08:40 BMI result Body Mass Index 30.4 General: Appears afebrile. Alert and oriented. Mood and affect appropriate. Follows and participates in conversation appropriately. Respiratory effort is unlabored. No cough. Able to transition from sit to stand unassisted. Ambulates with bilaterally normal heel strike and toe off. Right Thumb: Right thumb with graft, with mild allodynia and mild color changes with cold temperature and cold weather changes per patient's report. No swelling or redness noted. Extrem General: Yes capillary refill normal, Yes no clubbing, cyanosis or edema and Yes no calf tenderness Psych Appearance: grossly normal and well kempt Mental Status: mental status grossly normal Speech and movement: Normal speech and movement present and Clear speech present Affect: normal affect Attitude: cooperative Thought process: Normal thought process present Thought content: Normal thought content present, suicidality (none), no hallucinations and No Depressive thoughts present Insight: Good insight present (Psych) Judgement: Good judgement present (Psych) Results Reviewed Results Reviewed: No imaging reports are available for review. 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 No obvious signs of diversion, abuse or misuse of the opioid medications. Script sent for Percocet 5-325 mg QID with an advanced date of 08/09/24. Patient has Narcan at home. All questions and concerns have been answered and patient agrees with the plan. Follow up in 4-5 weeks for pill count and sooner if needed. Medications: Refilled oxycodone-acetaminophen 5-325 mg Partial Fill upon patient request. 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
--- OUTSIDE RECORDS SUMMARY | 2024-07-31 08:36 | XMS_ITS | Data Portability ---
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 On exam, bilateral TMs are intact with well aerated middle ear spaces. Audiometric testing demonstrated normal hearing bilaterally. Masking to control awareness of tinnitus, avoidance of caffeine, and stress management were recommended. For symptoms significantly affecting the quality of life, cognitive behavioral therapy and tinnitus retraining therapy could be considered. I recommended use of hearing protection in loud noise environments. Tinnitus brochure was provided to patient. He may follow up as needed for any future concerns, or sooner if symptoms worsen. All questions were answered. [email or web address] Not available 03/27/2024 12:05:52 Plan of Treatment Reminders Order Date Submit Date Provider Last Modified By Organization Details Last Modified Time Details Appointments None record ed. Lab None record ed. Referral None record ed. Procedures None record ed. Surgeries None record ed. Imaging None record ed. Medication Orders None record ed. Patient TargetsNo targets recorded. Patient InstructionsNo instructions recorded. Reason for Referral None Reported. Results Created Date Observation Date Name Description Value Unit Range Abnormal Flag Note LastModifiedBy Organization Detail LastModifiedTime 04/01/20 audio gram No observ ation record ed. [email or web address] Not Available 03/14 09:02:34 Result Notes None recorded. Problems Name Problem SNOMED Code Status Onset Date Resolution Date Notes Provider Name and Address Organization Details Recorded Time Otitis externa of right ear 614500939347 9101 Active 2018 Other otitis externa , right ear; Note: Date Diagnos ed: 09/05/19 19 4:02 PM (H60.8X 1) Not Available [facility] 02:13:29 Abnormal auditory perception 33375183 Active 2023 ZOFIA LIANNA, AUD [address], [place], [address] , [facility] - [facility] 10:34:42 Bilateral tinnitus 725311270197 2 Active [address]ALLORY RAYO PA-C [address], [place], [address] , [facility] - [facility] [place] 12:04:41 Problem Notes None recorded. Procedures Surgical History Date Name Laterality Status Provider Name and Address Organization Details Recorded Time 03/27/2024 Air & Speech Audio with Tymps (99055, 49382 & 23707) completed ZOFIA SDOUZA, AUD [address], [place], [address], [facility] [place] 03/27/2024 10:34:29 Imaging Results Imaging Date Name Status LastModified by Organiz ation Details LastModified Time 04/01/2024 audiogram completed [email or web address] Information n ot available 04/01/2024 09:02:34 Procedure Notes None recorded. Medical Equipment None Reported. Allergies No known drug allergies Medications Name Sig Start Date Stop Date Status Note LastModified by Organization Details LastModified Time pravastati n 40 mg tablet TAKE 1 TABLET BY MOUTH EVERY DAY active Not Available Not Available No t Available tizanidine 4 mg tablet TAKE 1 TABLET BY MOUTH EVERY 8 HOURS NEEDED FOR MUSCLE SPASM active Not Available Not Available No t Available amlodipine 5 mg tablet TAKE 1 AND 1/2 TABLETS DAILY BY MOUTH active Not Available Not Available No t Available oxycodone- acetaminop hen 5 mg-325 mg tablet TAKE 1 TABLET BY MOUTH 3 TIMES A DAY NEEDED FOR PAIN FOR 30 DAYS active Not Available Not Available No t Available lisinopril 10 mg tablet 2018 active Medicatio n ID: [id number] Du ration Value: 30 Brand Name: grace jaime Send Method: E-Prescri bed Subs Allowed: subs OK Medica tionGener icName: lisinopri l Not Available Not Available Not Available lidocaine 5 % topical patch APPLY ONE PATCH TOPICALLY EVERY DAY FOR PAIN FOR 30M DAYS. 12 HOURS ON AND 12 HOURS OFF active Not Available Not Available No t Available gabapentin 300 mg capsule TAKE 1 CAPSULE BY MOUTH THREE TIMES A DAY NEEDED FOR PAIN active Not Available Not Available No t Available methylpred nisolone 4 mg tablets in a dose pack TAKE 6 TABLETS ON DAY 1 DIRECTED ON PACKAGE AND DECREASE BY 1 TAB EACH DAY FOR A TOTAL OF 6 DAYS active Not Available Not Available No t Available TobraDex 0.3 %-0.1 % eye drops,susp ension 2018 active Medicatio n ID: [id number] Pr escribed By Name: Denisse Layne Name: TobraDex Send Method: E-Prescri bed Subs Allowed: subs OK Specia l Instructi on: Instill 3 drops in the affect ear BID for 10 days Medi cationGen ericName: TobraDex Not Available Not Available Not Available GaviLyte-G 236 gram-22.74 gram-6.74 gram-5.86 gram oral solution PLEASE SEE ATTACHED FOR DETAILED DIRECTION S active Not Available Not Available No t Available Vitals Date Recorded Body height Body mass index (BMI) Body weight Provider Name and Address Organization Details Last Updated DateTime 03/27/2024 180.34 cm 29.3 kg/m2 72245.4 g Sunni Carrington [place] - [facility] 03/27/2024 10:46:20 Social History None recorded. Functional Status None recorded. Mental Status None recorded. Family History Nothing Reported. Medical History Condition Response Hypertension Y Past Encounters Encounter ID Performer Location Encounter Start Date Encounter Closed Date Diagnosis/Indication Diagnosis SNOMED-CT Code Diagnosis ICD10 Code [id number] MALLORY RAYO PA-C [facility] [address] [address] 03/27/2024 09:43:44 03/27/2024 11:16:32 Abnormal auditory perception 16540232 H93.299 Bilateral tinnitus 55501 44891 102 H93.13 Health Concerns Section Related Observation LastModified by Organization Detai ls LastModified Time None Recorded Concern Status LastModified by Organization Details LastModified Time None Recorded Advance Directives Directive None Recorded Payers Encounter Date Sequence Insurance Name Policy Number Policy Bazan Covered Member ID Bazan Member ID Guarantor Name 03/27/2024 1 [facility] ([id number]) [id number] John Steward Chris [id number] John Perez Notes Date Note Type Note Provider Name and Address Organization Details Recorded Time 03/27/2024 text/html 48-year-old male presents for evaluation of tinnitus. He reports bilateral intermittent tinnitus, worse in quiet environments for the past several years. Denies otalgia, otorrhea, changes in his hearing, and vertigo. Denies prior otologic history. History of noise exposure but consistently uses hearing protection. MALLORY RAYO PA-C [address] [place] [address], [phone], [facility] - [facility] 03/27/2024 12:07:32
[2024-07-31 08:40] VITALS: BP 130/72; PULSE 72; O2SAT 98; BMI 30.4
== END 2024-07-31 08:52 | disposition home or self-care (01) ==
PROVIDERS: PCP Nurse Practitioner Gerontology; Visit Provider Nurse Practitioner Family
DX: M47.816 Spondylosis without myelopathy or radiculopathy, lumbar region (principal); G90.519 Complex regional pain syndrome I of unspecified upper limb; Z79.891 Long term (current) use of opiate analgesic; M17.11 Unilateral primary osteoarthritis, right knee
CPT/HCPCS: 99214

== ENCOUNTER → 2024-07-31 08:25 | Outpatient (BNVA) | payer BC, SELFPAY | PROVIDERS: PCP Nurse Practitioner Gerontology; Visit Provider Nurse Practitioner Family ==

== ENCOUNTER 2024-08-28 08:29 | Outpatient (AMB) | payer BC, SELFPAY ==
--- OUTSIDE RECORDS SUMMARY | 2024-08-28 08:45 | XMS_ITS | Data Portability ---
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 All questions were answered. [email or web address] Not available 03/27/2024 12:05:52 Plan of Treatment [...] Flag Note LastModifiedBy Organization Detail LastModifiedTime 04/01/20 24 audio gram No observ ation record ed. [email or web address] Not Available 03/14 09:02:34 Result Notes None recorded. Problems Name Problem SNOMED Code Status Onset Date Resolution Date Notes Provider Name and Address Organization Details Recorded Time Otitis externa of right ear 451628488484 9101 Active 2018 Other otitis externa , right ear; Note: Date Diagnos ed: 09/05/19 19 4:02 PM (H60.8X 1) Not Available [facility] 02:13:29 Abnormal auditory perception 12883320 Active 2023 ZOFIA LIANNA, AUD [address], [place], [address] , [facility] - [facility] 10:34:42 Bilateral tinnitus 168920797604 2 Active 2023 MALLORY RAYO PA-C [address], [place], [address] , [facility] - [facility] [place] 12:04:41 Problem Notes None recorded. Procedures Surgical History Date Name Laterality Status Provider Name and Address Organization Details Recorded Time 03/27/2024 Air & Speech Audio with Tymps (47806, 11286 & 36493) completed ZOFIA DSOUZA, AUD [address], [place], [address], [facility] [place] 03/27/2024 10:34:29 Imaging Results Imaging Date Name Status LastModified by Organiz ation Details LastModified Time 04/01/2024 audiogram completed [email or web address] Information n ot available 04/01/2024 09:02:34 Procedure [...] mg tablet 2018 active Medicatio n ID: [id number] Du ration Value: 30 Brand Name: grace [...] drops,susp ension 2018 active Medicatio n ID: [id number] Pr escribed By Name: Denisse Layne Name: [...] Updated DateTime 03/27/2024 180.34 cm 29.3 kg/m2 07338.4 g Sunni Carrington [place] - [facility] 03/27/2024 10:46:20 Social History None recorded. Functional Status None recorded. Mental Status None recorded. Family History Nothing Reported. Medical History Condition Response Hypertension Y Past Encounters Encounter ID Performer Location Encounter Start Date Encounter Closed Date Diagnosis/Indication Diagnosis SNOMED-CT Code Diagnosis ICD10 Code Diagnosis Note [id number] MALLORY RAYO PA-C [facility] [address] [address] 03/27/2024 09:43:44 03/27/2024 11:16:32 Abnormal auditory perception 41526226 H93.299 Audiologic al evaluation results: Right ear: Normal auditory thresholds with {{excellen t* good fa ir poor no t measurable }} speech discrimina tion. Left ear: Normal auditory thresholds with {{excellen t* good fa ir poor no t measurable }} speech discrimina tion. Tympanomet ry: Right Ear:{{Type A* Type As Type Ad Type C Type C, shallow & rounded Ty pe B Type B with large volume Cou ld not maintain a hermetic seal}} Left Ear:{{Type A* Type As Type Ad Type C Type C, shallow & rounded Ty pe B Type B with large volume Cou ld not maintain a hermetic seal}} Bilateral tinnitus 70380 49049 102 H93.13 Health Concerns Section Related Observation LastModified by Organization Detai ls LastModified Time None Recorded Concern Status LastModified by Organization Details LastModified Time None Recorded Advance Directives Directive None Recorded Payers Encounter Date Sequence Insurance Name Policy Number Policy Bazan Covered Member ID Bazan Member ID Guarantor Name 03/27/2024 1 [employer]: [facility] [place] [id number] John Perez [id number] John Perez Notes Date Note Type [...] consistently uses hearing protection. MALLORY RAYO PA-C [address] [place] [address], [phone], [facility] - [facility] 03/27/2024 12:07:32
--- NOTE | 2024-08-28 08:48 | MHC.OFFVIS ---
Vital Signs 08/28/24 08:53 Height 5 ft 11 in Weight 223 lb 8 oz BMI 31.2 BP 138/72 Blood Pressure Location Rt brachial Position Sitting Intake Visit Reasons: Pill Count Intake Note: John comes in today for a pill count to oxycodone-acetaminophen, patient should have 44 tablets and presents with 50 tablets which he last took last night 08/27/24 at 11pm. Pain today 09/22 Patient resigned opioid contract in office, copy of signed contract was provided to patient. Licensed Marriage And Family Therapist Required: No Accompanied by: Self / Same As Patient Allergies No Known Allergies Allergy (Verified 07/31/24 08:40) Medication List - Last Reconciled 08/28/24 by RISHI Alston amlodipine 7.5 mg PO DAILY camphor-methyl salicyl-menthol 3.1 %-10 %-6 % (large) (Salonpas) 1 patch topical DAILY gabapentin 10% 1 appl topical TID-QID 30 days gabapentin 300 mg PO TID 30 days magnesium glycinate 200 mg (2 x 100 mg) PO BEDTIME methylprednisolone (Medrol (Alpesh)) PO PER PKG DIR naloxone 4 mg/actuation (Narcan) 4 mg intranasal Q2M PRN oxycodone-acetaminophen 5-325 mg 1 tab PO Q6H PRN 30 days pantoprazole (Protonix) 40 mg PO DAILY peg 3350-electrolytes 236-22.74-6.74 -5.86 gram (GaviLyte-G) mL PO pravastatin 40 mg PO DAILY tizanidine 4 mg PO Q8H PRN HPI Comments Details: Patient presents today for a pill count. Patient is supposed to have #44 pills, in his possession has #50 pills. This demonstrates a responsible attitude in regards to the medication regimen. Patient reports reasonable analgesia on his regimen of oxycodone-acetaminophen 5-325 mg QID prn with no noted side effects. Patient reports current medication regime allows him to less symptomatic and more functional. Denies any fever, chills, malaise, shortness of breaths, abdominal pain, headache, dyspnea, constipation, nausea, sedation, dizziness, or urinary retention. Patient reports being seen at [facility] [place] for chest pain with normal cardiology work up per patient. He continues to experience intermittent chest discomfort which he was told might related to GERD. He was started on protonix with partial relief. Patient has upcoming follow up with his PCP and will pursue Cardiology follow up if no improvement in his chest pain symptoms. 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 Alert and oriented. Mood and affect appropriate. Follows and participates in conversation appropriately. Respiratory effort is unlabored. No cough. Able to transition from sit to stand unassisted. Ambulates with bilaterally normal heel strike and toe off. Right Thumb: Right thumb with graft, with mild allodynia and mild color changes with cold temperature and cold weather changes per patient's report. No swelling or redness noted. Cardio Jugular venous distension: no JVD Rate: regular rate Peripheral pulses: Peripheral pulses 2+ throughout Extrem General: Yes capillary refill normal, Yes no clubbing, cyanosis or edema and Yes no calf tenderness Psych Appearance: grossly normal and well kempt Mental Status: mental status grossly normal Speech and movement: Normal speech and movement present and Clear speech present Affect: normal affect Attitude: cooperative Thought process: Normal thought process present Thought content: Normal thought content present, suicidality (none), no hallucinations and No Depressive thoughts present Insight: Good insight present (Psych) Judgement: Good judgement present (Psych) Results Reviewed Results Reviewed: No imaging reports are available for review. 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 No obvious signs of diversion, abuse or misuse of the opioid medications. Script sent for Percocet 5-325 mg QID with an advanced date of 09/08/24. Patient has Narcan at home. Follow up with your PCP and Cardiology if worsening chest pain or seek emergency care. All questions and concerns have been answered and patient agrees with the plan. Follow up in 4-5 weeks for pill count and sooner if needed. Medications: Refilled oxycodone-acetaminophen 5-325 mg Partial Fill upon patient request. 1 tab PO Q6H 30 days PRN 120 tabs 0RF pain G90.519 - Complex regional pain syndrome I of unspecified upper limb, M47.816 - Spondylosis without myelopathy or radiculopathy, lumbar region, M54.50 - Low back pain, unspecified, Z79.891 - assistant terminal manager (current) use of opiate analgesic Coding Level of Care Code Est Pt Level 4 (56494) Complex EM visit Add On G2211 Diagnoses Lumbar spondylosis M47.816 CRPS (complex regional pain syndrome), upper limb G90.519 Opioid contract exists Z79.891 Osteoarthritis of right knee M17.11
[2024-08-28 08:53] VITALS: BP 138/72; BMI 31.2
== END 2024-08-28 08:59 | disposition home or self-care (01) ==
PROVIDERS: PCP Nurse Practitioner Gerontology; Visit Provider Nurse Practitioner Family
DX: M47.816 Spondylosis without myelopathy or radiculopathy, lumbar region (principal); G90.519 Complex regional pain syndrome I of unspecified upper limb; Z79.891 Long term (current) use of opiate analgesic; M17.11 Unilateral primary osteoarthritis, right knee
CPT/HCPCS: 99214

== ENCOUNTER 2024-09-25 08:58 | Outpatient (AMB) | payer BC, SELFPAY ==
--- NOTE | 2024-09-25 09:01 | MHC.OFFVIS ---
Vital Signs 09/25/24 09:10 Height 5 ft 11 in Weight 224 lb BMI 31.2 BP 130/72 Blood Pressure Location Rt brachial Position Sitting Pulse 82 Pulse Source Pulse Oximeter Pulse Oximetry (%) 97 Oxygen Delivery Method Room Air Intake Visit Reasons: Pill Count Intake Note: John comes in today for a pill count to oxycodone-acetaminophen, patient should have 52 tablets and presents with 59 tablets which he last took last night 09/24/24 at 8pm. Pain today 09/22 Collar Cutter Required: No Accompanied by: Self / Same As Patient Allergies No Known Allergies Allergy (Verified 09/25/24 09:09) HPI Comments Details: Patient presents today for a pill count. Patient is supposed to have #52 pills, in his possession has #59 pills. This demonstrates a responsible attitude in regards to the medication regimen. Patient reports reasonable analgesia on his regimen of oxycodone-acetaminophen 5-325 mg QID prn with no noted side effects. Patient reports current medication regime allows him to less symptomatic and more functional. Denies any fever, chills, malaise, shortness of breaths, abdominal pain, headache, dyspnea, constipation, nausea, sedation, dizziness, or urinary retention. Patient reports he recently recovered from flu illness and is feeling much better. Denies any recent hospitalizations or Urgent clinic visits. Past Procedures: 03/11/24: Left diagnostic sacroiliac joint injection: 90-100% pain relief for 24 hours, ongoing 70% pain relief [facility] Medical History Chronic pain syndrome Osteoarthritis of right knee Opioid contract exists Sacroiliac joint pain Lumbar radiculopathy Right knee pain GERD (gastroesophageal reflux disease) Chest pain longterm (current) use of opiate analgesic CRPS (complex regional pain syndrome), upper limb Preventative health care Obesity, Class I, BMI 30.0-34.9 (see actual BMI) Morbid obesity Hypertension Allergic reaction Acute pharyngitis Acute allergic serous otitis media Surgical History History of partial amputation of hand Review of Systems Const All systems reviewed & are unremarkable except as noted in HPI and below Physical Exam Vital Signs: Last Vital Signs Pulse 82 09/25/24 09:10 BP 130/72 09/25/24 09:10 Pulse Ox 97 09/25/24 09:10 Oxygen Delivery Method Room Air 09/25/24 09:10 BMI result Body Mass Index 31.2 General: Appears afebrile. Alert and oriented. Mood and affect appropriate. Follows and participates in conversation appropriately. Respiratory effort is unlabored. No cough. Able to transition from sit to stand unassisted. Ambulates with bilaterally normal heel strike and toe off. Right Thumb: Right thumb with graft, with mild allodynia and mild color changes with cold temperature and cold weather changes per patient's report. No swelling or redness noted. Extrem General: Yes capillary refill normal, Yes no clubbing, cyanosis or edema and Yes no calf tenderness Psych Appearance: grossly normal Mental Status: mental status grossly normal Speech and movement: Normal speech and movement present Affect: normal affect Attitude: cooperative Thought process: Normal thought process present Thought content: Normal thought content present, suicidality (none), no hallucinations and No Depressive thoughts present Insight: Good insight present (Psych) Judgement: Good judgement present (Psych) Results Reviewed Results Reviewed: No imaging reports are available for review. Assessment & Plan Assessment & Plan (1) Lumbar spondylosis: Code(s): M47.816 - Spondylosis without myelopathy or radiculopathy, lumbar region Category: Medical (2) CRPS (complex regional pain syndrome), upper limb: Code(s): G90.519 - Complex regional pain syndrome I of unspecified upper limb Category: Medical (3) Opioid contract exists: Code(s): Z79.891 - longterm (current) use of opiate analgesic Category: Medical (4) Osteoarthritis of right knee: Code(s): M17.11 - Unilateral primary osteoarthritis, right knee Category: Medical Plan Masspat was reviewed and without concerns. No obvious signs of diversion, abuse or misuse of the opioid medications. Script sent for Percocet 5-325 mg QID with an advanced date of 10/08/24. Patient has Narcan at home. All questions and concerns have been answered and patient agrees with the plan. Follow up in 4-5 weeks for pill count and sooner if needed. Medications: Refilled oxycodone-acetaminophen 5-325 mg Partial Fill upon patient request. 1 tab PO Q6H 30 days PRN 120 tabs 0RF pain G90.519 - Complex regional pain syndrome I of unspecified upper limb, M47.816 - Spondylosis without myelopathy or radiculopathy, lumbar region, M54.50 - Low back pain, unspecified, Z79.891 - longterm (current) use of opiate analgesic Coding Level of Care Code Est Pt Level 4 (09533) Complex EM visit Add On G2211 Diagnoses Lumbar spondylosis M47.816 CRPS (complex regional pain syndrome), upper limb G90.519 Opioid contract exists Z79.891 Osteoarthritis of right knee M17.11
[2024-09-25 09:10] VITALS: BP 130/72; PULSE 82; O2SAT 97; BMI 31.2
--- OUTSIDE RECORDS SUMMARY | 2024-09-25 09:23 | XMS_ITS | Data Portability ---
Author Organization [place] [facility], Allergy Address [address] [place] [id number] Care Team Providers Care In Home Baby Sitter Name Role Phone ISMAEL COLINDRES Primary Care [...] if symptoms worsen. All questions were answered. [email or web address] Not available 03/27/2024 12:05:52 Plan of Treatment [...] audio gram No observ ation record ed. [email or web address] Not Available 03/14 09:02:34 Result Notes None recorded. Problems Name Problem SNOMED Code Status Onset Date Resolution Date Notes Provider Name and Address Organization Details Recorded Time Otitis externa of right ear 306116365560 9101 Active 2018 Other otitis externa , right ear; Note: Date Diagnos ed: 09/05/19 19 4:02 PM (H60.8X 1) Not Available [facility] 02:13:29 Abnormal auditory perception 80726251 Active 2023 ZOFIA LIANNA, AUD [address], [place], [address] , [facility] - [facility] 10:34:42 Bilateral tinnitus 080547263855 2 Active 2023 MALLORY RAYO PA-C [address], [place], [address] , [facility] - [facility] [facility] 12:04:41 Problem Notes None recorded. Procedures Surgical History Date Name Laterality Status Provider Name and Address Organization Details Recorded Time 03/27/2024 Air & Speech Audio with Tymps (74543, 96719 & 36807) completed ZOFIA DSOUZA, AUD [address], [place], [address], [facility] 03/27/2024 10:34:29 Imaging Results Imaging Date Name Status LastModified by Organiz ation Details LastModified Time 04/01/2024 audiogram completed [email or web address] Information n ot available 04/01/2024 09:02:34 Procedure [...] mg tablet 2018 active Medicatio n ID: [id number] Du ration Value: 30 Brand Name: grace [...] drops,susp ension 2018 active Medicatio n ID: [id number] Pr escribed By Name: Denisse Layne Name: [...] Updated DateTime 03/27/2024 180.34 cm 29.3 kg/m2 86968.4 g Sunni Carrington [place] - [facility] 03/27/2024 10:46:20 Social History None recorded. Functional Status None recorded. Mental Status None recorded. Family History Nothing Reported. Medical History Condition Response Hypertension Y Past Encounters Encounter ID Performer Location Encounter Start Date Encounter Closed Date Diagnosis/Indication Diagnosis SNOMED-CT Code Diagnosis ICD10 Code Diagnosis Note [id number] MALLORY RAYO PA-C [facility] [address] [phone] 03/27/2024 09:43:44 03/27/2024 11:16:32 Abnormal auditory perception [id number] H93.299 Audiologic al evaluation results: Right ear: [...] not maintain a hermetic seal}} Bilateral tinnitus 74674 14659 102 H93.13 Health Concerns Section Related Observation LastModified by Organization Detai ls LastModified Time None Recorded Concern Status LastModified by Organization Details LastModified Time None Recorded Advance Directives Directive None Recorded Payers Encounter Date Sequence Insurance Name Policy Number Policy Bazan Covered Member ID Bazan Member ID Guarantor Name 03/27/2024 1 [employer]: [facility] ([facility] [place] [id number] John Perez [id number] John Perez Notes Date Note Type [...] consistently uses hearing protection. MALLORY RAYO PA-C [address] [place] [address], [phone], [facility] - [facility] 03/27/2024 12:07:32
== END 2024-09-25 09:17 | disposition home or self-care (01) ==
PROVIDERS: PCP Nurse Practitioner Gerontology; Visit Provider Nurse Practitioner Family
DX: G90.519 Complex regional pain syndrome I of unspecified upper limb (principal); M47.816 Spondylosis without myelopathy or radiculopathy, lumbar region; M17.11 Unilateral primary osteoarthritis, right knee; Z79.891 Long term (current) use of opiate analgesic
CPT/HCPCS: 99214

== ENCOUNTER → 2024-09-25 08:58 | Outpatient (BNVA) | payer BC, SELFPAY | PROVIDERS: PCP Nurse Practitioner Gerontology; Visit Provider Nurse Practitioner Family ==

== ENCOUNTER 2024-10-23 08:47 | Outpatient (AMB) | payer BC, SELFPAY ==
--- NOTE | 2024-10-23 08:52 | MHC.OFFVIS ---
Vital Signs 10/23/24 08:56 Height 5 ft 11 in Weight 227 lb BMI 31.7 BP 140/72 H Blood Pressure Location Rt brachial Position Sitting Pulse 68 Pulse Source Pulse Oximeter Pulse Oximetry (%) 99 Oxygen Delivery Method Room Air Intake Visit Reasons: PILL COUNT Intake Note: John comes in today for a pill count to oxycodone-acetaminophen, patient should have 60 tablets and presents with 66 tablets which he last took last night 10/22/24 at 10pm. 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 Patient is supposed to have #52 pills, in his possession has #59 pills. This demonstrates a responsible attitude in regards to the medication regimen. Patient reports reasonable analgesia on his regimen of oxycodone-acetaminophen 5-325 mg QID prn with no noted side effects. He reports flare up in his right knee pain and previously declined knee injection as pain was well responding to conservative treatments with home exercises, NSAIDs, OTC topical creams, ice and elevation. Reports worsening right knee pain in medial aspects and anterior aspects with associated swelling and tenderness at the end of the day after work day. 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 Denies any fever, chills, malaise, shortness of breaths, abdominal pain, headache, dyspnea, constipation, nausea, sedation, dizziness, or urinary retention. Patient reports he recently recovered from flu illness and is feeling much better. 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 CRPS (complex regional pain syndrome), upper limb Preventative health care Obesity, Class I, BMI 30.0-34.9 (see actual BMI) Morbid obesity Hypertension Allergic reaction Acute pharyngitis Acute allergic serous otitis media Surgical History History of partial amputation of hand Review of Systems Const All systems reviewed & are unremarkable except as noted in HPI and below Musc Reports as per HPI, Reports back pain, Denies myalgias, Reports arthralgias, Denies joint swelling, Reports limited range of motion, Denies muscle weakness, Denies numbness, Denies radiating pain into limb, Reports stiffness and Denies tingling Neuro Denies numbness and Denies tingling Physical Exam Vital Signs: Last Vital Signs Pulse 68 10/23/24 08:56 BP 140/72 H 10/23/24 08:56 Pulse Ox 99 10/23/24 08:56 Oxygen Delivery Method Room Air 10/23/24 08:56 BMI result Body Mass Index 31.7 General: Appears afebrile. Alert and oriented. Mood and affect appropriate. Follows and participates in conversation appropriately. Respiratory effort is unlabored. No cough. Able to transition from sit to stand unassisted. Ambulates with bilaterally normal heel strike and toe off. Right Thumb: Right thumb with graft, with mild allodynia and mild color changes with cold temperature and cold weather changes per patient's report. No swelling or redness noted. Extrem General: Yes capillary refill normal, Yes no clubbing, cyanosis or edema and Yes no calf tenderness Right lower extremity: knee Details: tenderness Location: of the patella and of the medial joint line, normal ROM, knee ligament exam normal and crepitus; no swelling, no ecchymosis, no deformity and no unusual warmth Psych Appearance: grossly normal Mental Status: mental status grossly normal Speech and movement: Normal speech and movement present Affect: normal affect Attitude: cooperative Thought process: Normal thought process present Thought content: Normal thought content present, suicidality (none), no hallucinations and No Depressive thoughts present Insight: Good insight present (Psych) Judgement: Good judgement present (Psych) Results Reviewed Results Reviewed: No imaging reports are available for review. Assessment & Plan Assessment & Plan (1) Right knee pain: Code(s): M25.561 - Pain in right knee Category: Medical (2) Lumbar spondylosis: Code(s): M47.816 - Spondylosis without myelopathy or radiculopathy, lumbar region Category: Medical (3) CRPS (complex regional pain syndrome), upper limb: Code(s): G90.519 - Complex regional pain syndrome I of unspecified upper limb Category: Medical (4) Opioid contract exists: Code(s): Z79.891 - care home (current) use of opiate analgesic Category: Medical (5) Osteoarthritis of right knee: Code(s): M17.11 - Unilateral primary osteoarthritis, right knee Category: Medical Plan Masspat was reviewed and without concerns. No obvious signs of diversion, abuse or misuse of the opioid medications. Script sent for Percocet 5-325 mg QID with an advanced date of 11/04/24. Patient has Narcan at home. Right knee xray to assess degree of arthritis and rule out effusion. Tentatively plan for Right knee intra-articular cortisone injection with local and fluoroscopy. Expectations, risks and benefits were reviewed. Patient is aware he will be contacted to schedule this procedure. Continue ice therapy, rest, elevation, NSAIDs and home stretching exercises. All questions and concerns have been answered and patient agrees with the plan. Follow up in 4-5 weeks for pill count and sooner if needed. Orders: Orders XR knee RT 3V Today M25.561 - Pain in right knee Medications: Refilled oxycodone-acetaminophen 5-325 mg Partial Fill upon patient request. 1 tab PO Q6H 30 days PRN 120 tabs 0RF pain G90.519 - Complex regional pain syndrome I of unspecified upper limb, M47.816 - Spondylosis without myelopathy or radiculopathy, lumbar region, M54.50 - Low back pain, unspecified, Z79.891 - care home (current) use of opiate analgesic Coding Level of Care Code Est Pt Level 4 (06980) Complex EM visit Add On G2211 Diagnoses Right knee pain M25.561 Lumbar spondylosis M47.816 CRPS (complex regional pain syndrome), upper limb G90.519 Opioid contract exists Z79.891 Osteoarthritis of right knee M17.11
[2024-10-23 08:56] VITALS: BP 140/72; PULSE 68; O2SAT 99; BMI 31.7
== END 2024-10-23 09:10 | disposition home or self-care (01) ==
LOC: HO.PMC 08:48
PROVIDERS: PCP Nurse Practitioner Gerontology; Visit Provider Nurse Practitioner Family
DX: M25.561 Pain in right knee (principal); M47.816 Spondylosis without myelopathy or radiculopathy, lumbar region; G90.519 Complex regional pain syndrome I of unspecified upper limb; Z79.891 Long term (current) use of opiate analgesic; M17.11 Unilateral primary osteoarthritis, right knee
CPT/HCPCS: 99214

== ENCOUNTER 2024-10-23 08:47 | Outpatient (REF) | payer BC, SELFPAY ==
--- NOTE | ~2024-10-23 | XR_ITS ---
CLINICAL HISTORY: M25.561 - Pain in right knee 3 view right knee Comparison: None Findings: No fractures or dislocations. There are minor degenerative changes. No joint effusion. No radiopaque foreign body. IMPRESSION: 1. No acute findings. This document has been electronically signed by: Cortez Alvarado MD on 10/24/2024 08:53:54
== END 2024-10-23 08:48 | disposition home or self-care (01) ==
LOC: HO.XRAY 08:47
PROVIDERS: PCP Nurse Practitioner Gerontology; Visit Provider Nurse Practitioner Family
DX: M17.11 Unilateral primary osteoarthritis, right knee (principal); M47.816 Spondylosis without myelopathy or radiculopathy, lumbar region; G90.519 Complex regional pain syndrome I of unspecified upper limb; Z79.891 Long term (current) use of opiate analgesic
CPT/HCPCS: 73562

== ENCOUNTER → 2024-10-23 09:21 | Outpatient (BNV) | payer BC, SELFPAY | PROVIDERS: PCP Nurse Practitioner Gerontology; Visit Provider Radiology Diagnostic Radiology | DX: M25.561 Pain in right knee (principal) | CPT/HCPCS: 73562 ==

== ENCOUNTER 2024-11-04 06:32 | Outpatient (REF) | payer BC, SELFPAY ==
--- NOTE | ~2024-11-04 | FL_ITS ---
EXAMINATION: XR FLUOROSCOPY WITH IMAGES CLINICAL INFORMATION: Right knee pain management. COMPARISON: Right knee radiographs 10/23/2024. TECHNIQUE: Fluoroscopy provided to: Dr. Ruffin Fluoroscopy time: 0.0 minutes DAP: [id number] [id number] Images: 1 FINDINGS: Solitary image obtained during intra-articular injection of the right knee. Please refer to the full procedure report for details. FL/FL guidance in treatment room IMPRESSION: Fluoroscopic guidance. Electronically signed by: Yury Britt MD 11/05/2024 03:54 PM EDT
== END 2024-11-04 06:33 | disposition home or self-care (01) ==
LOC: CF 06:32
PROVIDERS: Visit Provider Anesthesiology
DX: M25.561 Pain in right knee (principal)
CPT/HCPCS: 20610; J2795; J3301; Q9967

== ENCOUNTER 2024-11-04 13:56 | Outpatient (AMB) | payer BC, SELFPAY ==
[2024-11-04 14:04] VITALS: BP 147/89; PULSE 78; O2SAT 98
--- NOTE | 2024-11-04 14:04 | A.OFFVIS_ITS ---
Vital Signs 11/04/24 14:04 11/04/24 14:49 BP 147/89 H 145/89 H Blood Pressure Location Lt brachial Lt brachial Position Sitting Sitting Pulse 78 74 Pulse Source Pulse Oximeter Pulse Oximeter Pulse Oximetry (%) 98 96 Oxygen Delivery Method Room Air Room Air Comment Pre-Procedure Post-Procedure Intake Visit Reasons: RIGHT INTRA-ARTICULAR KNEE INJECTION Allergies No Known Allergies Allergy (Verified 10/23/24 08:56) [facility] Medical History Chronic pain syndrome Osteoarthritis of right knee Opioid contract exists Sacroiliac joint pain Lumbar radiculopathy Right knee pain GERD (gastroesophageal reflux disease) 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 CRPS (complex regional pain syndrome), upper limb Preventative health care Obesity, Class I, BMI 30.0-34.9 (see actual BMI) Morbid obesity Hypertension Allergic reaction Acute pharyngitis Acute allergic serous otitis media Surgical History History of partial amputation of hand Physical Exam Vital Signs: Last Vital Signs Pulse 74 11/04/24 14:49 BP 145/89 H 11/04/24 14:49 Pulse Ox 96 11/04/24 14:49 Oxygen Delivery Method Room Air 11/04/24 14:49 Assessment & Plan Assessment & Plan (1) Osteoarthritis of right knee: Code(s): M17.11 - Unilateral primary osteoarthritis, right knee Category: Medical (2) Right knee pain: Code(s): M25.561 - Pain in right knee Category: Medical Plan Intra-articular right knee steroid injection. Informed consent was thoroughly explained to the patient risks and benefits as bleeding infection were explained. He came to the operating room and was positioned sitting on the operating table. His area of the right knee as well as anterior lateral surface of the right thigh and anterior lateral surface of the right leg was prepped with ChloraPrep and draped with sterile self adhesive utility towels. After that C-arm was brought over the knee and 22 gauge 3-1/2 inch needle was inserted from anterior lateral to posterior medial direction into retropatellar space under x-ray guidance. When the needle entered the joint of the right knee injection of the contrast was performed delineating arthrogram. After that injection of the ropivacaine 0.5% mixed with Kenalog 40 mg total amount 5 cc was performed into the knee. Upon completion of the procedure needle was withdrawn sterile Band-Aid was applied. Patient tolerated procedure fairly well. Orders: Orders FL guidance in treatment room 11/04/24 M25.561 - Pain in right knee Coding Level of Care Code Procedure Only Diagnoses Osteoarthritis of right knee M17.11 Right knee pain M25.561
[2024-11-04 14:49] VITALS: BP 145/89; PULSE 74; O2SAT 96
== END 2024-11-04 14:50 | disposition home or self-care (01) ==
LOC: HO.PMCPRC 13:56
PROVIDERS: PCP Nurse Practitioner Gerontology; Visit Provider Anesthesiology
DX: M17.11 Unilateral primary osteoarthritis, right knee (principal); M25.561 Pain in right knee
CPT/HCPCS: 20610; 77002

== ENCOUNTER 2024-11-20 08:57 | Outpatient (AMB) | payer BC, SELFPAY ==
--- NOTE | 2024-11-20 08:59 | MHC.OFFVIS ---
Vital Signs 11/20/24 09:07 Height 5 ft 11 in Weight 224 lb BMI 31.2 BP 122/60 Blood Pressure Location Rt brachial Position Sitting Pulse 70 Pulse Source Pulse Oximeter Pulse Oximetry (%) 99 Oxygen Delivery Method Room Air Intake Visit Reasons: Pill Count Intake Note: John comes in today for a pill count to oxycodone-acetaminophen, patient should have 60 tablets and presents with 68 tablets which he last took yesterday night 11/19/24 at 11pm. Pain today 09/22 Child Care Coordinator Required: No Accompanied by: Self / Same As Patient Allergies No Known Allergies Allergy (Verified 10/23/24 08:56) HPI Comments Details: Patient presents today for a pill count. Patient is supposed to have #60 pills, in his possession has #68 pills. This demonstrates a responsible attitude in regards to the medication regimen. Patient reports reasonable analgesia on his regimen of oxycodone-acetaminophen 5-325 mg QID prn with no noted side effects. Patient reports 80% ongoing right knee pain relief s/p recent cortisone injection. However, he is concernes about frequent right knee locking and twisting with walking or climbing stairs. He failed conservative treatments with home exercises, NSAIDs, OTC topical creams, ice therapy and elevation. Reports tenderness in medial aspects and anterior aspects, worse at the end of the day after work day. 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 Denies any fever, chills, malaise, shortness of breaths, abdominal pain, headache, dyspnea, constipation, nausea, sedation, dizziness, or urinary retention. 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 CRPS (complex regional pain syndrome), upper limb Preventative health care Obesity, Class I, BMI 30.0-34.9 (see actual BMI) Morbid obesity Hypertension Allergic reaction Acute pharyngitis Acute allergic serous otitis media Surgical History History of partial amputation of hand Review of Systems Const All systems reviewed & are unremarkable except as noted in HPI and below Physical Exam Vital Signs: Last Vital Signs Pulse 70 11/20/24 09:07 BP 122/60 11/20/24 09:07 Pulse Ox 99 11/20/24 09:07 Oxygen Delivery Method Room Air 11/20/24 09:07 BMI result Body Mass Index 31.2 General: Appears afebrile. Alert and oriented. Mood and affect appropriate. Follows and participates in conversation appropriately. Respiratory effort is unlabored. No cough. Able to transition from sit to stand unassisted. Ambulates with bilaterally normal heel strike and toe off. Right Thumb: Right thumb with graft, with mild allodynia and mild color changes with cold temperature and cold weather changes per patient's report. No swelling or redness noted. Extrem General: Yes capillary refill normal, Yes no clubbing, cyanosis or edema and Yes no calf tenderness Right lower extremity: knee Details: tenderness Location: of the patella, of the medial joint line and of the pre-patellar area, normal ROM and crepitus; no swelling, no ecchymosis, no deformity and no unusual warmth Psych Appearance: grossly normal Mental Status: mental status grossly normal Speech and movement: Normal speech and movement present Affect: normal affect Attitude: cooperative Thought process: Normal thought process present Thought content: Normal thought content present, suicidality (none), no hallucinations and No Depressive thoughts present Insight: Good insight present (Psych) Judgement: Good judgement present (Psych) Results Reviewed Results Reviewed: XR knee RT 3V on 10/24/24 3 view right knee Comparison: None Findings: No fractures or dislocations. There are minor degenerative changes. No joint effusion. No radiopaque foreign body. IMPRESSION: 1. No acute findings. Assessment & Plan Assessment & Plan (1) Right knee pain: Code(s): M25.561 - Pain in right knee Category: Medical (2) Osteoarthritis of right knee: Code(s): M17.11 - Unilateral primary osteoarthritis, right knee Category: Medical (3) Tendonitis of knee, right: Code(s): M76.891 - Other specified enthesopathies of right lower limb, excluding foot Category: Medical (4) Lumbar spondylosis: Code(s): M47.816 - Spondylosis without myelopathy or radiculopathy, lumbar region Category: Medical (5) CRPS (complex regional pain syndrome), upper limb: Code(s): G90.519 - Complex regional pain syndrome I of unspecified upper limb Category: Medical (6) Opioid contract exists: Code(s): Z79.891 - 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 No obvious signs of diversion, abuse or misuse of the opioid medications. Script sent for Percocet 5-325 mg QID with an advanced date of 12/05/24. Patient has Narcan at home. Patient has ongoing 80% pain relief s/p recent cortisone injection however continues to experience locking and twisting with walking or climbing stairs as well as increased pain while operating heavy machinery. We will proceed with right knee MRI to evaluate for bursitis and any meniscus pathology. All questions and concerns have been answered and patient agrees with the plan. Follow up in 4-5 weeks for pill count and sooner if needed. Orders: Orders MR knee RT wo con Today M17.11 - Unilateral primary osteoarthritis, right knee, M25.561 - Pain in right knee, M76.891 - Other specified enthesopathies of right lower limb, excluding foot Medications: Refilled oxycodone-acetaminophen 5-325 mg Partial Fill upon patient request. 1 tab PO Q6H 30 days PRN 120 tabs 0RF pain G90.519 - Complex regional pain syndrome I of unspecified upper limb, M47.816 - Spondylosis without myelopathy or radiculopathy, lumbar region, M54.50 - Low back pain, unspecified, Z79.891 - senior care (current) use of opiate analgesic Coding Level of Care Code Est Pt Level 4 (15407) Complex EM visit Add On G2211 Diagnoses Right knee pain M25.561 Osteoarthritis of right knee M17.11 Tendonitis of knee, right M76.891 Lumbar spondylosis M47.816 CRPS (complex regional pain syndrome), upper limb G90.519 Opioid contract exists Z79.891
[2024-11-20 09:07] VITALS: BP 122/60; PULSE 70; O2SAT 99; BMI 31.2
== END 2024-11-20 09:12 | disposition home or self-care (01) ==
LOC: HO.PMC 08:57
PROVIDERS: PCP Nurse Practitioner Gerontology; Visit Provider Nurse Practitioner Family
DX: M25.561 Pain in right knee (principal); M17.11 Unilateral primary osteoarthritis, right knee; M76.891 Other specified enthesopathies of right lower limb, excluding foot; M47.816 Spondylosis without myelopathy or radiculopathy, lumbar region; G90.519 Complex regional pain syndrome I of unspecified upper limb; Z79.891 Long term (current) use of opiate analgesic
CPT/HCPCS: 99214

== ENCOUNTER → 2024-11-20 08:57 | Outpatient (BNVA) | payer BC, SELFPAY | PROVIDERS: PCP Nurse Practitioner Gerontology; Visit Provider Nurse Practitioner Family | DX: Z13.89 Encounter for screening for other disorder (principal) ==

== ENCOUNTER 2024-12-04 15:15 | Outpatient (AMB) | payer BC, SELFPAY ==
--- NOTE | 2024-12-04 15:16 | A.OFFVIS_ITS ---
Vital Signs 12/04/24 15:20 Height 5 ft 11 in Weight 219 lb BMI 30.5 BP 140/62 H Blood Pressure Location Rt brachial Position Sitting Pulse 80 Pulse Source Pulse Oximeter Pulse Oximetry (%) 99 Oxygen Delivery Method Room Air Intake Visit Reasons: Right Shoulder Pain Intake Note: Pain today 01/20 Mortgage Loan Coordinator Required: No Accompanied by: Self / Same As Patient Allergies No Known Allergies Allergy (Verified 12/04/24 15:21) HPI Comments Details: The patient is a 49-year-old male presenting with acute right shoulder pain. The pain began after a yard activity incident few weeks ago where he strained the shoulder. 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 The patient describes consistent pain, affecting overhead motions, and located in the front and back of the shoulder. He denies hearing any popping or clicking, as well as any numbness or tingling. Conservative treatments such as heat, ice, gentle stretching exercises, topical creams, and use of a TENS unit have offered minimal relief. He has been administering ibuprofen and taking oxycodone for pain management, noting slight relief. A similar condition occurred roughly 10-15 years ago after a wrestling event, but resolved without intervention. Constraints, including managing multiple jobs, have limited his ability to engage in physical therapy. - Onset and Timing: Pain began after a yard incident and worsened over time. - Quality and Character: Persistent, aching, dull, sharp, throbbing and affects overhead movements. - Primary Location: Right shoulder, back, and front. - Exacerbating Factors: Overhead activities, shoveling, golfing. - Relieving Factors: Heat, ice, medical cream, muscle stimulator, ibuprofen. - Interference with Activities: Overhead movements, shoveling activities. - Affect: Feeling alone after the injury with some interference in activities and daily functioning. - Analgesia: Current medications include ibuprofen. Minimal relief achieved with current therapies. - Adverse Effects: None reported. - Activities of Daily Living: Activities like shoveling, yard work and golfing are impacted due to pain. - Aberrant Drug Related Behaviors: None reported. PRIOR: Patient presents today for a pill count. Patient is supposed to have #60 pills, in his possession has #68 pills. This demonstrates a responsible attitude in regards to the medication regimen. Patient reports reasonable analgesia on his regimen of oxycodone-acetaminophen 5-325 mg QID prn with no noted side effects. Patient reports 80% ongoing right knee pain relief s/p recent cortisone injec tion. However, he is concernes about frequent right knee locking and twisting with walking or climbing stairs. He failed conservative treatments with home exercises, NSAIDs, OTC topical creams, ice therapy and elevation. Reports tenderness in medial aspects and anterior aspects, worse at the end of the day after work day. 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 Denies any fever, chills, malaise, shortness of breaths, abdominal pain, headache, dyspnea, constipation, nausea, sedation, dizziness, or urinary retention. 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 Denies popping, clicking, numbness, and tingling. - Neurological: Denies tingling or numbness. All systems reviewed & are unremarkable except as noted in HPI and below Physical Exam Vital Signs: Last Vital Signs Pulse 80 12/04/24 15:20 BP 140/62 H 12/04/24 15:20 Pulse Ox 99 12/04/24 15:20 Oxygen Delivery Method Room Air 12/04/24 15:20 BMI result Body Mass Index 30.5 General: Appears afebrile. Alert and oriented. Mood and affect appropriate. Follows and participates in conversation appropriately. Respiratory effort is unlabored. No cough. No nasal discharge. Able to transition from sit to stand unassisted. Ambulates with bilaterally normal heel strike and toe off. Extrem Right upper extremity: shoulder/upper arm (Limited ROM due to pain, difficulty with overhead or backside pocket reach) Details: normal to inspection, tenderness (global right shoulder, worse anterior and posterior aspects), crepitus and other (Positive Empty can test); no swelling, no ecchymosis, no deformity and no unusual warmth Results Reviewed Results Reviewed: No imaging results are available for review. Assessment & Plan Assessment & Plan (1) Right shoulder pain: Code(s): M25.511 - Pain in right shoulder Category: Medical (2) Painful arc syndrome of right shoulder: Code(s): M75.101 - Unspecified rotator cuff tear or rupture of right shoulder, not specified as traumatic Category: Medical Plan I have ordered an X-ray of the right shoulder to further evaluate patient's pain, suspecting possible arthritis or soft tissue injury. Depending on X-ray findings, further imaging such as MRI may be considered to assess any rotator cuff involvement. In case of arthritis, injection therapy may be pursued with fluoroscopy guidance. The initial pharmaceutical intervention includes starting meloxicam to manage pain effectively, along continuing his current opioid therapy and muscle relaxant. Anticipatory guidance regarding avoiding simultaneous use of other NSAIDs due to gastrointestinal risk has been made clear. Follow-up arrangements will depend on the diagnostic outcome, and options remain open for more intense diagnostic approaches and eventual intervention based on severity and progression. Patient was informed and verbally consented to the use of an ambient scribe for clinic note documentation during this visit. Orders: Orders XR shoulder RT min 2V Today M25.511 - Pain in right shoulder Medications: New meloxicam Take it with food and full glass of water. Avoid other NSAIDs (Ibuprofen). 15 mg PO DAILY 30 tabs 0RF pain M25.511 - Pain in right shoulder Patient Instructions: I discussed with the patient the potential causes of his shoulder pain, including rotator cuff injury, arthritis, and bursitis. I explained that an X- ray is a necessary first step, but it may not fully reveal soft tissue issues, which might necessitate further MRI imaging. For pharmaceutical management, the advantages of meloxicam were emphasized over ibuprofen, especially with its once-daily dosing and more potent anti-inflammatory properties. I informed the patient about the risk of potential dizziness upon initial use of meloxicam and instructed him to avoid taking other NSAIDs concurrently. Possible intervention with injection therapy was discussed should X-ray findings indicate significant arthritis, and potentially schedule a fluoroscopy guided steroid injection. We also discussed physical therapy, which patient reports unable to pursue due to significant pain with movements and work constraints. Patient consented to the current plan for action and understood the need to follow the results of the diagnostic tests for further management. - Visit the imaging center today for a right shoulder X-ray. - Start meloxicam medication at bedtime. Avoid taking ibuprofen or other NSAIDs simultaneously. - Report any dizziness or any side effects experienced with meloxicam use. - Keep physical activities involving overhead functions to a minimum. - Follow up with the results sent to the patient portal and await further instructions. - Call the office should significant pain or further instructions be needed before the scheduled follow-up. Coding Level of Care Code Est Pt Level 4 (43712) Complex EM visit Add On G2211 Diagnoses Right shoulder pain M25.511 Painful arc syndrome of right shoulder M75.101
[2024-12-04 15:20] VITALS: BP 140/62; PULSE 80; O2SAT 99; BMI 30.5
== END 2024-12-04 15:36 | disposition home or self-care (01) ==
LOC: HO.PMC 15:16
PROVIDERS: PCP Nurse Practitioner Gerontology; Visit Provider Nurse Practitioner Family
DX: M25.511 Pain in right shoulder (principal); M75.101 Unspecified rotator cuff tear or rupture of right shoulder, not specified as traumatic
CPT/HCPCS: 99214

== ENCOUNTER 2024-12-04 15:15 | Outpatient (REF) | payer BC, SELFPAY ==
--- NOTE | ~2024-12-04 | XR_ITS ---
CLINICAL HISTORY: M25.511 - Pain in right shoulder 4 view right shoulder Comparison: None Findings: Bones intact. No dislocations. Mild narrowing and osteophyte production within the acromioclavicular joint. Unremarkable glenohumeral joint. No erosions. No radiopaque foreign body. IMPRESSION: 1. No acute findings This document has been electronically signed by: Anju Art MD on 12/09/2024 13:38:39
== END 2024-12-04 15:16 | disposition home or self-care (01) ==
LOC: HO.XRAY 15:15
PROVIDERS: PCP Nurse Practitioner Gerontology; Visit Provider Nurse Practitioner Family
DX: M25.511 Pain in right shoulder (principal)
CPT/HCPCS: 73030

== ENCOUNTER → 2024-12-04 15:39 | Outpatient (BNV) | payer BC, SELFPAY | PROVIDERS: PCP Nurse Practitioner Gerontology; Visit Provider Radiology Diagnostic Radiology | DX: M25.511 Pain in right shoulder (principal) | CPT/HCPCS: 73030 ==

== ENCOUNTER 2024-12-08 07:21 | Outpatient (REF) | payer BC, SELFPAY ==
--- NOTE | ~2024-12-08 | MR_ITS ---
EXAMINATION: MRI RIGHT KNEE WITHOUT CONTRAST HISTORY: M25.561 - Pain in right knee COMPARISON: Correlation is made with plain films of the right knee from [facility] dated 10/22/2023. TECHNIQUE: Coronal T1 and fat-suppressed proton density, sagittal proton density and fat-suppressed proton density, and axial fat suppressed T2 weighted MR images of the right knee were obtained. FINDINGS: Bone marrow: Bone marrow signal intensity is normal. Joint effusion: There is no joint effusion. Gasca's cyst: There is no Gasca's cyst. Articular cartilage: There is mild irregularity of the cartilage of the medial femoral condyle and the patella consistent with mild osteoarthritis. Muscles/soft tissues: The visualized muscles demonstrate normal signal intensity. There is a 10 mm multiloculated cystic structure adjacent to the fibular head, consistent with a ganglion cyst. Anterior cruciate ligament: Intact Posterior cruciate ligament: Intact Medial collateral ligament: Intact Lateral collateral ligament: Intact Medial meniscus: Intact Lateral meniscus: Intact Flexor mechanism: The popliteus, gastrocnemius, and hamstring tendons are intact. Quadriceps tendon: Intact Patellar tendon: Intact Patellar retinacula: Intact MR/MR knee RT wo con IMPRESSION: 1. Mild osteoarthritis of the medial and patellofemoral compartments. 2. Findings suggestive of a 10 mm ganglion cyst adjacent to the fibular head. Electronically signed by: Nakul Storm MD 12/10/2024 10:20 AM EDT
== END 2024-12-08 07:22 | disposition home or self-care (01) ==
LOC: HO.MRI 07:21
PROVIDERS: PCP Nurse Practitioner Gerontology; Visit Provider Nurse Practitioner Family
DX: M76.891 Other specified enthesopathies of right lower limb, excluding foot (principal); M17.11 Unilateral primary osteoarthritis, right knee
CPT/HCPCS: 73721

== ENCOUNTER → 2024-12-08 07:25 | Outpatient (BNV) | payer BC, SELFPAY | PROVIDERS: PCP Nurse Practitioner Gerontology; Visit Provider Radiology Diagnostic Radiology | DX: M25.561 Pain in right knee (principal) | CPT/HCPCS: 73721 ==

== ENCOUNTER 2024-12-18 09:00 | Outpatient (AMB) | payer BC, SELFPAY ==
--- NOTE | 2024-12-18 09:01 | MHC.OFFVIS ---
Vital Signs 12/18/24 09:08 Height 5 ft 11 in Weight 221 lb 6 oz BMI 30.9 BP 140/80 H Blood Pressure Location Rt brachial Position Sitting Pulse 67 Pulse Source Pulse Oximeter Pulse Oximetry (%) 100 Oxygen Delivery Method Room Air Intake Visit Reasons: Pill Count Intake Note: John comes in today for a pill count to oxycodone-acetaminophen, patient should have 68 tablets and presents with 75 tablets which he last took last night 12/17/24 at 11pm. 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 Patient is supposed to have #68 pills, in his possession has #75 pills. This demonstrates a responsible attitude in regards to the medication regimen. Patient reports reasonable analgesia on his regimen of oxycodone-acetaminophen 5-325 mg QID prn with no noted side effects. He continues to endorse right shoulder pain and is interested in therapeutic steroidal injection. Patient reports shoulder pain has not worsened but remains persistent. He reports right knee has been mild since last visit with periods of increase pain with movements or climbing stairs. He is interested to undergo Orthopedic evaluation for recent MRI findings as noted below. He continues to utilize conservative treatments with home exercises, NSAIDs, OTC topical creams, ice therapy and activity modifications. Denies any fever, chills, malaise, shortness of breaths, abdominal pain, headache, dyspnea, constipation, nausea, sedation, dizziness, or urinary retention. Past Procedures: 11/04/24: Right knee intra-articular steroid injection- 80% ongoing pain relief 03/11/24: Left diagnostic sacroiliac joint injection: 90-100% pain relief for 24 hours, ongoing 70% pain relief [facility] Medical History Chronic pain syndrome Osteoarthritis of right knee Opioid contract exists Sacroiliac joint pain Lumbar radiculopathy Right knee pain GERD (gastroesophageal reflux disease) Chest pain [facility] (current) use of opiate analgesic CRPS (complex regional pain syndrome), upper limb Preventative health care Obesity, Class I, BMI 30.0-34.9 (see actual BMI) Morbid obesity Hypertension Allergic reaction Acute pharyngitis Acute allergic serous otitis media Surgical History History of partial amputation of hand Review of Systems Const All systems reviewed & are unremarkable except as noted in HPI and below Physical Exam Vital Signs: Last Vital Signs Pulse 67 12/18/24 09:08 BP 140/80 H 12/18/24 09:08 Pulse Ox 100 12/18/24 09:08 Oxygen Delivery Method Room Air 12/18/24 09:08 BMI result Body Mass Index 30.9 General: Appears afebrile. Alert and oriented. Mood and affect appropriate. Follows and participates in conversation appropriately. Respiratory effort is unlabored. No cough. No nasal discharge. Able to transition from sit to stand unassisted. Ambulates with bilaterally normal heel strike and toe off. Extrem General: Yes capillary refill normal, Yes no clubbing, cyanosis or edema and Yes no calf tenderness Right upper extremity: shoulder/upper arm (Limited ROM due to pain, difficulty with overhead or backside pocket reach) Details: normal to inspection, tenderness (global right shoulder, worse anterior and posterior aspects), crepitus and other (Positive Empty can test); no swelling, no ecchymosis, no deformity and no unusual warmth Left lower extremity: knee Details: normal to inspection, tenderness Location: of the patella and of the medial joint line, normal ROM and crepitus; no swelling, no ecchymosis and no unusual warmth Results Reviewed Results Reviewed: XR shoulder RT min 2V 12/09/24 Findings: Bones intact. No dislocations. Mild narrowing and osteophyte production within the acromioclavicular joint. Unremarkable glenohumeral joint. No erosions. No radiopaque foreign body. IMPRESSION: 1. No acute findings MRI RIGHT KNEE WITHOUT CONTRAST 12/08/24 HISTORY: M25.561 - Pain in right knee COMPARISON: Correlation is made with plain films of the right knee from [facility] dated 10/22/2023. TECHNIQUE: Coronal T1 and fat-suppressed proton density, sagittal proton density and fat-suppressed proton density, and axial fat suppressed T2 weighted MR images of the right knee were obtained. FINDINGS: Bone marrow: Bone marrow signal intensity is normal. Joint effusion: There is no joint effusion. Gasca's cyst: There is no Gasca's cyst. Articular cartilage: There is mild irregularity of the cartilage of the medial femoral condyle and the patella consistent with mild osteoarthritis. Muscles/soft tissues: The visualized muscles demonstrate normal signal intensity. There is a 10 mm multiloculated cystic structure adjacent to the fibular head, consistent with a ganglion cyst. Anterior cruciate ligament: Intact Posterior cruciate ligament: Intact Medial collateral ligament: Intact Lateral collateral ligament: Intact Medial meniscus: Intact Lateral meniscus: Intact Flexor mechanism: The popliteus, gastrocnemius, and hamstring tendons are intact. Quadriceps tendon: Intact Patellar tendon: Intact Patellar retinacula: Intact IMPRESSION: 1. Mild osteoarthritis of the medial and patellofemoral compartments. 2. Findings suggestive of a 10 mm ganglion cyst adjacent to the fibular head. 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 No obvious signs of diversion, abuse or misuse of the opioid medications. Script sent for Percocet 5-325 mg QID with an advanced date of 01/03/25. Patient has Narcan at home. Right shoulder xray and knee MRI results were discussed today. Orthopedic referral placed for further right knee pain evaluation. Right shoulder intra-articular cortisone injection with local and fluoroscopy. Expectations, risks and benefits were reviewed. Patient is aware he will be contacted to schedule this procedure. Continue ice and heat therapy, rest, activity modificatios, NSAIDs and home stretching exercises. All questions and concerns have been answered and patient agrees with the plan. Follow up in 4 weeks for pill count and sooner if needed. 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
[2024-12-18 09:08] VITALS: BP 140/80; PULSE 67; O2SAT 100; BMI 30.9
== END 2024-12-18 09:15 | disposition home or self-care (01) ==
LOC: HO.PMC 09:00
PROVIDERS: PCP Nurse Practitioner Gerontology; Visit Provider Nurse Practitioner Family
DX: M25.561 Pain in right knee (principal); M17.11 Unilateral primary osteoarthritis, right knee; M47.816 Spondylosis without myelopathy or radiculopathy, lumbar region; G90.519 Complex regional pain syndrome I of unspecified upper limb; Z79.891 Long term (current) use of opiate analgesic; M19.011 Primary osteoarthritis, right shoulder; M25.511 Pain in right shoulder
CPT/HCPCS: 99214

== ENCOUNTER → 2024-12-18 09:00 | Outpatient (BNVA) | payer BC, SELFPAY | PROVIDERS: PCP Nurse Practitioner Gerontology; Visit Provider Nurse Practitioner Family | DX: Z13.89 Encounter for screening for other disorder (principal) ==

== ENCOUNTER 2025-01-06 07:02 | Outpatient (REF) | payer BC, SELFPAY ==
--- NOTE | ~2025-01-06 | FL_ITS ---
EXAMINATION: XR FLUOROSCOPY WITH IMAGES CLINICAL INFORMATION: Right shoulder pain, pain management injection. COMPARISON: Right shoulder radiographs 12/04/2024. TECHNIQUE: Fluoroscopy provided to: Dr. Ruffin Fluoroscopy time: 0.3 minutes DAP: 0.0144 mGycm2 Images: 2 FINDINGS: 2 fluoroscopic spot images right shoulder during pain management injection. Please refer to the full operative report for details. FL/FL guidance in treatment room IMPRESSION: Fluoroscopic guidance. Electronically signed by: Yury Britt MD 01/07/2025 10:15 AM EDT
== END 2025-01-06 07:03 | disposition home or self-care (01) ==
LOC: CF 07:02
PROVIDERS: Visit Provider Anesthesiology
DX: M75.101 Unspecified rotator cuff tear or rupture of right shoulder, not specified as traumatic (principal)
CPT/HCPCS: 20610; J2003; J2795; J3301; Q9967

== ENCOUNTER 2025-01-06 15:03 | Outpatient (AMB) | payer BC, SELFPAY ==
[2025-01-06 15:10] VITALS: BP 119/95; PULSE 76; RESP 18; O2SAT 98
--- NOTE | 2025-01-06 15:10 | A.OFFVIS_ITS ---
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 Allergies No Known Allergies Allergy (Verified 01/06/25 15:11) [facility] Medical History Chronic pain syndrome Osteoarthritis of right knee Opioid contract exists Sacroiliac joint pain Lumbar radiculopathy Right knee pain GERD (gastroesophageal reflux disease) 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 CRPS (complex regional pain syndrome), upper limb Preventative health care Obesity, Class I, BMI 30.0-34.9 (see actual BMI) Morbid obesity Hypertension Allergic reaction Acute pharyngitis Acute allergic serous otitis media Surgical History History of partial amputation of hand Physical Exam Vital Signs: Last Vital Signs Pulse 71 01/06/25 15:32 Resp 20 01/06/25 15:32 BP 134/96 H 01/06/25 15:32 Pulse Ox 98 01/06/25 15:32 Oxygen Delivery Method Room Air 01/06/25 15:32 Assessment & Plan Assessment & Plan (1) Painful arc syndrome of right shoulder: Code(s): M75.101 - Unspecified rotator cuff tear or rupture of right shoulder, not specified as traumatic Category: Medical (2) Right shoulder pain: Code(s): M25.511 - Pain in right shoulder Category: Medical Plan Right therapeutic shoulder glenohumeral joint injection Informed consent was explained thoroughly to the patient.? All questions about benefits and risks for the procedure were answered. Patient came to the operating room she was positioned prone on the operating table with the pillow under his chest.? Time-out was performed delineating correct site and side of the procedure name and date of of the patient. Her lower back and buttocks was prepped with ChloraPrep prepped and draped with sterile towels.C-arm was brought over the operating field and sq picture of patient's right shoulder joint was demonstrated on the screen.? Most superior and most medial surface of the humeral head was chosen as the target of the injection. . Skin was injected in the projection of the joint slightly medial to the location of the joint with 25 gauge 1/2 inch needle using local lidocaine 2% mixed with ropivacaine 0.5% one-to-one. After that 22 gauge 5 inch needle was driven to the glenohumeral joint joint in tunnel vision fashion.? When needle entered the joint capsule injection of the contrast was performed demonstrating intra-articular and minimally periarticular spread of the contrast.? After that ropivacaine 0.5% 5 mL mixed with Kenalog 40 mg was injected into the right joint joint, the needle was removed sterile Band- Aid was applied. Orders: Orders FL guidance in treatment room Today M25.511 - Pain in right shoulder Coding Level of Care Code Procedure Only Diagnoses Painful arc syndrome of right shoulder M75.101 Right shoulder pain M25.511
[2025-01-06 15:32] VITALS: BP 134/96; PULSE 71; RESP 20; O2SAT 98
== END 2025-01-06 15:41 | disposition home or self-care (01) ==
LOC: HO.PMCPRC 15:03
PROVIDERS: PCP Nurse Practitioner Gerontology; Visit Provider Anesthesiology
DX: M75.101 Unspecified rotator cuff tear or rupture of right shoulder, not specified as traumatic (principal); M25.511 Pain in right shoulder
CPT/HCPCS: 20610; 77002

== ENCOUNTER 2025-01-22 08:59 | Outpatient (AMB) | payer BC, SELFPAY ==
--- NOTE | 2025-01-22 09:00 | MHC.OFFVIS ---
Vital Signs 01/22/25 09:07 Height 5 ft 11 in Weight 218 lb BMI 30.4 BP 120/68 Blood Pressure Location Rt brachial Position Sitting Pulse 61 Pulse Source Pulse Oximeter Pulse Oximetry (%) 98 Oxygen Delivery Method Room Air Intake Visit Reasons: PILL COUNT Intake Note: John comes in today for a pill count to oxycodone-acetaminophen, patient should have 56 tablets and presents with 61 tablets which he last took last night 01/20/25 at 10pm. 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 Patient is supposed to have #56 pills, in his possession has #61 pills. This demonstrates a responsible attitude in regards to the medication regimen. Patient reports adequate analgesia on his regimen of oxycodone-acetaminophen 5-325 mg QID prn with no noted side effects. Pain is rated at 0/10 with contributing factors including medication and warm weather conditions. Patient underwent right shoulder steroid injection with fluoroscopy last month with significant improvement in his ROM, movements and use of right arm. He reports ongoing 100% right shoulder pain relief since procedures. Patient continues to experience aggravation in his right knee when extended for prolonged periods, with discomfort localized to medial aspect of the knee. Pain is mostly present during driving or climbing stairs. Scheduled Orthopedic consultation is due on 03/31/25. He continues to utilize conservative treatments with home exercises, NSAIDs, OTC topical creams, ice therapy and activity modifications. Denies any fever, chills, malaise, shortness of breaths, abdominal pain, headache, dyspnea, constipation, nausea, sedation, dizziness, or urinary retention. Past Procedures: 01/06/25: Right shoulder steroid injection-100% ongoing pain relief 11/04/24: Right knee intra-articular steroid injection- 80% ongoing pain relief 03/11/24: Left diagnostic sacroiliac joint injection: 90-100% pain relief for 24 hours, ongoing 70% pain relief [facility] Medical History Chronic pain syndrome Osteoarthritis of right knee Opioid contract exists Sacroiliac joint pain Lumbar radiculopathy Right knee pain GERD (gastroesophageal reflux disease) Chest pain [facility] (current) use of opiate analgesic CRPS (complex regional pain syndrome), upper limb Preventative health care Obesity, Class I, BMI 30.0-34.9 (see actual BMI) Morbid obesity Hypertension Allergic reaction Acute pharyngitis Acute allergic serous otitis media Surgical History History of partial amputation of hand Review of Systems Const Details: - Musculoskeletal: Reports knee pain when extended; denies other joint pain. - Gastrointestinal: Denies constipation. - General: Reports feeling good; denies current pain. All systems reviewed & are unremarkable except as noted in HPI and below Denies weakness Musc Denies numbness and Denies tingling Neuro Denies burning sensations, Denies numbness, Denies radicular pain, Denies tingling and Denies weakness Physical Exam Vital Signs: Last Vital Signs Pulse 61 01/22/25 09:07 BP 120/68 01/22/25 09:07 Pulse Ox 98 01/22/25 09:07 Oxygen Delivery Method Room Air 01/22/25 09:07 BMI result Body Mass Index 30.4 General: Appears afebrile. Alert and oriented. Mood and affect appropriate. Follows and participates in conversation appropriately. Respiratory effort is unlabored. No cough. Able to transition from sit to stand unassisted. Ambulates with bilaterally normal heel strike and toe off. Extrem General: Yes capillary refill normal, Yes no clubbing, cyanosis or edema and Yes no calf tenderness Right lower extremity: knee Details: tenderness Location: of the medial joint line, normal ROM and crepitus; no swelling, no ecchymosis, no deformity and no unusual warmth Psych Appearance: grossly normal and well kempt Mental Status: mental status grossly normal Speech and movement: Normal speech and movement present and Clear speech present Affect: normal affect Attitude: cooperative Thought process: Normal thought process present Thought content: Normal thought content present, suicidality (none), no hallucinations and No Depressive thoughts present Insight: Good insight present (Psych) Judgement: Good judgement present (Psych) Assessment & Plan Assessment & Plan (1) Right knee pain: Code(s): M25.561 - Pain in right knee Category: Medical (2) Osteoarthritis of right knee: Code(s): M17.11 - Unilateral primary osteoarthritis, right knee Category: Medical (3) Lumbar spondylosis: Code(s): M47.816 - Spondylosis without myelopathy or radiculopathy, lumbar region Category: Medical (4) CRPS (complex regional pain syndrome), upper limb: Code(s): G90.519 - Complex regional pain syndrome I of unspecified upper limb Category: Medical (5) Opioid contract exists: Code(s): 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 No obvious signs of diversion, abuse or misuse of the opioid medications. Script sent for Percocet 5-325 mg QID with an advanced date of 02/05/25. Patient has Narcan at home. Awareness on Narcan use is ensured within the household. Pending Orthopedic evaluation on 03/31/25 for further right knee pain evaluation. Continue ice and heat therapy, weight optimizatio, adequate hydration, activity modifications, NSAIDs and home stretching exercises. All questions and concerns have been answered and patient agrees with the plan. Follow up in 4-5 weeks for pill count and sooner if needed. Patient was informed and verbally consented to the use of an ambient scribe for clinic note documentation during this visit. Medications: Refilled oxycodone-acetaminophen 5-325 mg Partial Fill upon patient request. 1 tab PO Q6H PRN 120 tabs 0RF pain 30 days G90.519 - Complex regional pain syndrome I of unspecified upper limb, M47.816 - Spondylosis without myelopathy or radiculopathy, lumbar region, M54.50 - Low back pain, unspecified, Z79.891 - [facility] (current) use of opiate analgesic Patient Instructions: I discussed with the patient his progress in managing chronic pain, noting significant improvement in right shoulder pain post-injection. The risks and benefits of continuing current pain management strategies were reviewed, with the patient reporting satisfaction in achieving pain relief and maintaining quality of life. I emphasized the importance of adhering to medication guidelines, particularly in maintaining accurate pill counts, which the patient has done successfully. The importance of regular Orthopedic assessments was acknowledged for addressing right knee discomfort, with an appointment arranged. The patient confirmed the support from household resources with Narcan knowledge verified. Finally, I affirmed the plan to monitor pain status and adjust treatment as needed, ensuring continuous patient participation and awareness. 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
[2025-01-22 09:07] VITALS: BP 120/68; PULSE 61; O2SAT 98; BMI 30.4
== END 2025-01-22 09:25 | disposition home or self-care (01) ==
LOC: HO.PMC 08:59
PROVIDERS: PCP Nurse Practitioner Gerontology; Visit Provider Nurse Practitioner Family
DX: M25.561 Pain in right knee (principal); M17.11 Unilateral primary osteoarthritis, right knee; M47.816 Spondylosis without myelopathy or radiculopathy, lumbar region; G90.519 Complex regional pain syndrome I of unspecified upper limb; Z79.891 Long term (current) use of opiate analgesic; M19.011 Primary osteoarthritis, right shoulder
CPT/HCPCS: 99214

== ENCOUNTER → 2025-01-22 08:59 | Outpatient (BNVA) | payer BC, SELFPAY | PROVIDERS: PCP Nurse Practitioner Gerontology; Visit Provider Nurse Practitioner Family | DX: Z13.89 Encounter for screening for other disorder (principal) ==

== ENCOUNTER 2025-02-19 09:00 | Outpatient (AMB) | payer BC, SELFPAY ==
--- NOTE | 2025-02-19 09:07 | MHC.OFFVIS ---
Vital Signs 02/19/25 09:08 Weight 217 lb BP 132/90 H Blood Pressure Location Lt brachial Position Sitting Respiration 19 Pulse 67 Pulse Source Pulse Oximeter Pulse Oximetry (%) 100 Oxygen Delivery Method Room Air Intake Visit Reasons: Pill count/random UDS Intake Note: pt states he last took his oxycodone acetaminopeh at 10pm 02/18/25. [facility] says he should have 56 presented with 75 Environmental Tech Required: No Allergies No Known Allergies Allergy (Verified 02/19/25 09:07) HPI Comments Details: John is very pleasant 49 years old gentleman who presents in my office for the pill count and medication refill. He presented himself with 75 pills in his possession. His supposed to have 56 pills in his possession. His prescription is oxycodone/acetaminophen 5/325. He reports that he still appreciates the effect of the intra-articular shoulder injection which was performed on the right shoulder on 01/06/2025. He denies side effects of the opioid medications. He denies constipation. He reports pain level today 210. He reports good mobility, good activities of daily living, good social interactions. Past Procedures: 01/06/25: Right shoulder steroid injection-100% ongoing pain relief 11/04/24: Right knee intra-articular steroid injection- 80% ongoing pain relief 03/11/24: Left diagnostic sacroiliac joint injection: 90-100% pain relief for 24 hours, ongoing 70% pain relief [facility] Medical History Chronic pain syndrome Osteoarthritis of right knee Opioid contract exists Sacroiliac joint pain Lumbar radiculopathy Right knee pain GERD (gastroesophageal reflux disease) Chest pain [facility] (current) use of opiate analgesic CRPS (complex regional pain syndrome), upper limb Preventative health care Obesity, Class I, BMI 30.0-34.9 (see actual BMI) Morbid obesity Hypertension Allergic reaction Acute pharyngitis Acute allergic serous otitis media Surgical History History of partial amputation of hand Review of Systems Const All systems reviewed & are unremarkable except as noted in HPI and below Physical Exam Vital Signs: Last Vital Signs Pulse 67 02/19/25 09:08 Resp 19 02/19/25 09:08 BP 132/90 H 02/19/25 09:08 Pulse Ox 100 02/19/25 09:08 Oxygen Delivery Method Room Air 02/19/25 09:08 General: Appears afebrile. Alert and oriented. Mood and affect appropriate. Follows and participates in conversation appropriately. Respiratory effort is unlabored. No cough. Able to transition from sit to stand unassisted. Ambulates with bilaterally normal heel strike and toe off. Extrem General: Yes capillary refill normal, Yes no clubbing, cyanosis or edema and Yes no calf tenderness Right lower extremity: knee Details: tenderness Location: of the medial joint line, normal ROM and crepitus; no swelling, no ecchymosis, no deformity and no unusual warmth Psych Appearance: grossly normal and well kempt Mental Status: mental status grossly normal Speech and movement: Normal speech and movement present and Clear speech present Affect: normal affect Attitude: cooperative Thought process: Normal thought process present Thought content: Normal thought content present, suicidality (none), no hallucinations and No Depressive thoughts present Insight: Good insight present (Psych) Judgement: Good judgement present (Psych) Assessment & Plan Assessment & Plan (1) Right knee pain: Code(s): M25.561 - Pain in right knee Category: Medical (2) Osteoarthritis of right knee: Code(s): M17.11 - Unilateral primary osteoarthritis, right knee Category: Medical (3) Lumbar spondylosis: Code(s): M47.816 - Spondylosis without myelopathy or radiculopathy, lumbar region Category: Medical (4) CRPS (complex regional pain syndrome), upper limb: Code(s): G90.519 - Complex regional pain syndrome I of unspecified upper limb Category: Medical (5) Opioid contract exists: Code(s): 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 No obvious signs of diversion, abuse or misuse of the opioid medications. Script sent for Percocet 5-325 mg QID with an advanced date of 03/07/25. New prescription of Narcan was sent today to the patient's pharmacy on 02/19/2025. Pending Orthopedic evaluation on 03/31/25 for further right knee pain evaluation. Next appointment in 1 month for another pill count. If patient would require another injection in the right shoulder we will schedule him again that time. Medications: Refilled naloxone 4 mg/actuation (Narcan) spray 1 dose into ONE nostril; alternate nostrils w each dose until help arrives 4 mg intranasal Q2M PRN 2 ea 0RF opioid overdose oxycodone-acetaminophen 5-325 mg Partial Fill upon patient request. 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
[2025-02-19 09:08] VITALS: BP 132/90; PULSE 67; RESP 19; O2SAT 100
== END 2025-02-19 09:42 | disposition home or self-care (01) ==
LOC: HO.PMC 09:01
PROVIDERS: PCP Nurse Practitioner Gerontology; Visit Provider Anesthesiology
DX: M25.561 Pain in right knee (principal); M17.11 Unilateral primary osteoarthritis, right knee; M47.816 Spondylosis without myelopathy or radiculopathy, lumbar region; G90.519 Complex regional pain syndrome I of unspecified upper limb; Z79.891 Long term (current) use of opiate analgesic; M19.011 Primary osteoarthritis, right shoulder
CPT/HCPCS: 99213

== ENCOUNTER 2025-03-19 08:51 | Outpatient (AMB) | payer BC, SELFPAY ==
--- NOTE | 2025-03-19 08:55 | A.OFFVIS_ITS ---
Vital Signs 03/19/25 09:11 Height 5 ft 11 in Weight 215 lb 6 oz BMI 30.0 BP 128/72 Blood Pressure Location Rt brachial Position Sitting Pulse 82 Pulse Source Pulse Oximeter Pulse Oximetry (%) 100 Oxygen Delivery Method Room Air Intake Visit Reasons: Pill count Intake Note: John comes in today for a pill count to oxycodone-acetaminophen, patient should have 72 tablets and presents with 75 tablets which he last took last night 03/18/25 at 11pm. 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 He presented himself with 75 pills in his possession, he was supposed to have 72 pills in his possession. His prescription is oxycodone/acetaminophen 5/325 QID prn. Patient reports current medication regime allows him to be less symptomatic and more functional. However, he continues to endorce significant right knee discomfort and has upcoming follow [place] [facility] [place]. He did receive right knee cortisone injecition earlier this year with good but temporary relief. Recent MRI revealed mild osteoarthritis of the medial and patellofemoral compartments and a 10 mm ganglion cyst adjacent to the fibular head. Patient denies side effects of the opioid medications. He denies constipation. He reports pain level today 08/22. He reports good mobility except right knee, good activities of daily living, good social interactions and better sleep. Past Procedures: 01/06/25: Right shoulder steroid injection-100% ongoing pain relief 11/04/24: Right knee intra-articular steroid injection- 80% ongoing pain relief 03/11/24: Left diagnostic sacroiliac joint injection: 90-100% pain relief for 24 hours, ongoing 70% pain relief [facility] Medical History Chronic pain syndrome Osteoarthritis of right knee Opioid contract exists Sacroiliac joint pain Lumbar radiculopathy Right knee pain GERD (gastroesophageal reflux disease) Chest pain [facility] (current) use of opiate analgesic CRPS (complex regional pain syndrome), upper limb Preventative health care Obesity, Class I, BMI 30.0-34.9 (see actual BMI) Morbid obesity Hypertension Allergic reaction Acute pharyngitis Acute allergic serous otitis media Surgical History History of partial amputation of hand Review of Systems Const All systems reviewed & are unremarkable except as noted in HPI and below Physical Exam General: Appears afebrile. Alert and oriented. Mood and affect appropriate. Follows and participates in conversation appropriately. Respiratory effort is unlabored. No cough. Able to transition from sit to stand unassisted. Ambulates with bilaterally normal heel strike and toe off. Extrem General: Yes capillary refill normal, Yes no clubbing, cyanosis or edema and Yes no calf tenderness Right lower extremity: knee Details: tenderness Location: of the popliteal fossa, of the medial joint line and of the lateral joint line, normal ROM and crepitus; no swelling, no ecchymosis, no deformity and no unusual warmth Psych Appearance: grossly normal and well kempt Mental Status: mental status grossly normal Speech and movement: Normal speech and movement present and Clear speech present Affect: normal affect Attitude: cooperative Thought process: Normal thought process present Thought content: Normal thought content present, suicidality (none), no hallucinations and No Depressive thoughts present Insight: Good insight present (Psych) Judgement: Good judgement present (Psych) Results Reviewed Results Reviewed: XR shoulder RT min 2V 12/09/24 Findings: Bones intact. No dislocations. Mild narrowing and osteophyte production within the acromioclavicular joint. Unremarkable glenohumeral joint. No erosions. No radiopaque foreign body. IMPRESSION: 1. No acute findings MRI RIGHT KNEE WITHOUT CONTRAST 12/08/24 HISTORY: M25.561 - Pain in right knee COMPARISON: Correlation is made with plain films of the right knee from [facility] dated 10/22/2023. TECHNIQUE: Coronal T1 and fat-suppressed proton density, sagittal proton density and fat-suppressed proton density, and axial fat suppressed T2 weighted MR images of the right knee were obtained. FINDINGS: Bone marrow: Bone marrow signal intensity is normal. Joint effusion: There is no joint effusion. Gasca's cyst: There is no Gasca's cyst. Articular cartilage: There is mild irregularity of the cartilage of the medial femoral condyle and the patella consistent with mild osteoarthritis. Muscles/soft tissues: The visualized muscles demonstrate normal signal intensity. There is a 10 mm multiloculated cystic structure adjacent to the fibular head, consistent with a ganglion cyst. Anterior cruciate ligament: Intact Posterior cruciate ligament: Intact Medial collateral ligament: Intact Lateral collateral ligament: Intact Medial meniscus: Intact Lateral meniscus: Intact Flexor mechanism: The popliteus, gastrocnemius, and hamstring tendons are intact. Quadriceps tendon: Intact Patellar tendon: Intact Patellar retinacula: Intact IMPRESSION: 1. Mild osteoarthritis of the medial and patellofemoral compartments. 2. Findings suggestive of a 10 mm ganglion cyst adjacent to the fibular head. 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 No obvious signs of diversion, abuse or misuse of the opioid medications. Script sent for Percocet 5-325 mg QID with an advanced date of 04/05/25. Patient has Narcan at home. Pending Orthopedic evaluation on 03/31/25 for further right knee pain evaluation. Continue ice and heat therapy, knee bracing, weight optimization, adequate hydration, activity modifications, NSAIDs and home stretching exercises. All questions and concerns have been answered and patient agrees with the plan. Follow up in 4-5 weeks for pill count and sooner if needed. Medications: New leg brace (Knee Support Brace) As directed 1 ea 0RF knee support and pain reduction M25.561 - Pain in right knee, M67.461 - Ganglion, right knee Refilled oxycodone-acetaminophen 5-325 mg Partial Fill upon patient request. 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
[2025-03-19 09:11] VITALS: BP 128/72; PULSE 82; O2SAT 100
== END 2025-03-19 09:11 | disposition home or self-care (01) ==
LOC: HO.PMC 08:51
PROVIDERS: PCP Nurse Practitioner Gerontology; Visit Provider Nurse Practitioner Family
DX: M25.561 Pain in right knee (principal); M17.11 Unilateral primary osteoarthritis, right knee; M47.816 Spondylosis without myelopathy or radiculopathy, lumbar region; G90.519 Complex regional pain syndrome I of unspecified upper limb; Z79.891 Long term (current) use of opiate analgesic; M19.011 Primary osteoarthritis, right shoulder; M67.461 Ganglion, right knee
CPT/HCPCS: 99214

== ENCOUNTER 2025-03-31 08:18 | Outpatient (AMB) | payer BC, SELFPAY ==
--- NOTE | 2025-03-31 08:34 | A.OFFVIS_ITS ---
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 He states ongoing pain for more than a year. Patient has seen pain management for his pain and they referred him to Orthopedics to be further evaluated. He continues to have right knee when he extends his leg for a prolonged period of time. Patient states that his discomfort is located to the medial aspect of the knee. He notices that his pain is mostly present during driving or climbing stairs. Patient informed me that he has tried cortisone injection which gave him mild relief. He had a cortisone injection with pain management on 10/23/24 with mild relief. He mentions that his knee feels sore and his pain is a 6 out of 10 on the pain scale. Patient tried oxycodone which didn't give him relief. IMPRESSION (MRI 12/09/24): 1. Mild osteoarthritis of the medial and patellofemoral compartments. 2. Findings suggestive of a 10 mm ganglion cyst adjacent to the fibular head. 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 Perez is a 49-year-old male who presents to the office today for evaluation of right knee pain. He denies any acute injury or trauma to the area. He reports the knee pain is located on the inside portion of the knee and points to the medial aspect. He reports that the pain has been present for greater than 1 year. He had been seen at pain management prior for this problem in which he received a cortisone injection on 10/23/2024. He reports gave him about 1 month of relief and then his pain returned. Pain management ordered an MRI and found a ganglion cyst adjacent to the fibular head. They placed a referral to Orthopedics for further evaluation and treatment. Of note, the patient does participate with pain management and receives oxycodone-acetaminophen 5-325 mg q.i.d. p.r.n. pain. He reports this does help mildly with the right knee discomfort. The chronic pain management is for complex regional pain syndrome affecting the hand. 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 CRPS (complex regional pain syndrome), upper limb Preventative health care Obesity, Class I, BMI 30.0-34.9 (see actual BMI) Morbid obesity Hypertension Allergic reaction Acute pharyngitis Acute allergic serous otitis media Surgical History History of partial amputation of hand Social History (Updated 03/31/25 @ 08:40 by Fritz Dominguez) Alcohol intake: current Alcohol intake frequency: holidays/special occasions only Tobacco use type: Cigar Current occupational status: employed 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 No ecchymosis, erythema or joint effusion. Small mobile round cyst felt adjacent to the fibular head. Patient is able to demonstrate full range of motion 0-120. Crepitus is felt with range of motion. No tenderness to palpation along the medial joint line at the site of reported pain. NVI. Psych Appearance: grossly normal Mental Status: mental status grossly normal Attitude: cooperative Assessment & Plan Assessment & Plan (1) Osteoarthritis of right knee: Code(s): M17.11 - Unilateral primary osteoarthritis, right knee Category: Medical Plan Mr. Perez is a 49-year-old male who presents to the office today for evaluation of right knee pain. He denies any acute injury or trauma to the area. He reports the knee pain is located on the inside portion of the knee and points to the medial aspect. He reports that the pain has been present for greater than 1 year. He had been seen at pain management prior for this problem in which he received a cortisone injection on 10/23/2024. He reports gave him about 1 month of relief and then his pain returned. Pain management ordered an MRI and found a ganglion cyst adjacent to the fibular head. They placed a referral to Orthopedics for further evaluation and treatment. Of note, the patient does participate with pain management and receives oxycodone-acetaminophen 5-325 mg q.i.d. p.r.n. pain. He reports this does help mildly with the right knee discomfort. The chronic pain management is for complex regional pain syndrome affecting the hand. While in the office today, I have reviewed x-rays of the right knee which were negative for any acute findings and MRI imaging of the right knee with the patient which revealed mild osteoarthritis in the medial and patellofemoral comp artments as well as a 10 mm ganglion cyst adjacent to the fibular head. As the patient is not experiencing any pain adjacent to the fibular head there is no need for surgical intervention for removal. I discussed treatment options in regards to the osteoarthritis which include cortisone injection, oral anti- inflammatories, bracing and gel injections. However, the patient is quite frustrated as his expectation for today's visit was for removal of the ganglion cyst which he believed was causing his pain. Patient has elected to hold on any further treatment in regards to the right knee pain. Patient will follow up with Orthopedics p.r.n., sooner if needed. X-rays of the right knee which were obtained while in the office today and were reviewed by me, Jo Lane PA-C, revealed medial and patellofemoral compartment osteoarthritis. MRI of the right knee obtained on 12/08/2024: IMPRESSION: 1. Mild osteoarthritis of the medial and patellofemoral compartments. 2. Findings suggestive of a 10 mm ganglion cyst adjacent to the fibular head. Orders: Orders XR knee RT 3V Today M25.569 - Pain in unspecified knee Coding Level of Care Code New Pt Level 4 (86265) Diagnoses Osteoarthritis of right knee M17.11
== END 2025-03-31 09:00 | disposition home or self-care (01) ==
LOC: HO.HOS 08:19
PROVIDERS: PCP Nurse Practitioner Gerontology; Visit Provider Physician Assistant
DX: M17.11 Unilateral primary osteoarthritis, right knee (principal)
CPT/HCPCS: 99204

== ENCOUNTER → 2025-03-31 08:23 | Outpatient (BNV) | payer BC, SELFPAY | PROVIDERS: Visit Provider Radiology Diagnostic Radiology | DX: M17.11 Unilateral primary osteoarthritis, right knee (principal) | CPT/HCPCS: 73562 ==

== ENCOUNTER 2025-03-31 08:53 | Outpatient (REF) | payer BC, SELFPAY ==
--- NOTE | ~2025-03-31 | XR_ITS ---
EXAMINATION: XR KNEE, RIGHT CLINICAL INFORMATION: M25.569 - Pain in unspecified knee COMPARISON: October 23, 2024 TECHNIQUE: AP view in standing position both knees. Lateral and sunrise view of the right knee. FINDINGS: No acute cortical disruption or malalignment. Joint space narrowing involving the medial compartment, right knee with sclerosis along the articular surface of the medial tibial plateau. No suprapatellar bursa joint effusion. No lytic or blastic lesions. XR/XR knee RT 3V IMPRESSION: Medial compartment osteoarthritis/osteoarthrosis, mild, right knee. Electronically signed by: Chivo Alaniz MD 03/31/2025 08:47 AM EDT
== END 2025-03-31 08:54 | disposition home or self-care (01) ==
LOC: HO.HOSX 08:53
PROVIDERS: Visit Provider Physician Assistant
DX: M17.11 Unilateral primary osteoarthritis, right knee (principal); M25.561 Pain in right knee
CPT/HCPCS: 73562

== ENCOUNTER 2025-04-23 09:05 | Outpatient (AMB) | payer BC, SELFPAY ==
--- NOTE | 2025-04-23 09:08 | A.OFFVIS_ITS ---
Vital Signs 04/23/25 09:18 Height 5 ft 11 in Weight 214 lb 6 oz BMI 29.9 BP 128/70 Blood Pressure Location Lt brachial Position Sitting Pulse 72 Pulse Source Pulse Oximeter Pulse Oximetry (%) 99 Oxygen Delivery Method Room Air Intake Visit Reasons: Pill Count Intake Note: John comes in today for a pill count to oxycodone-acetaminophen, patient should have 52 tablets and presents with 55 tablets which he last took today 04/23/25 at 7am. Pain today 5/10. 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 He presented himself with 52 pills in his possession, he was supposed to have 55 pills in his possession. His prescription is oxycodone/acetaminophen 5/325 QID prn. Patient reports current medication regime allows him to be less symptomatic and more functional. Patient denies side effects of the opioid medications. The patient reports that the knee pain is located medially and radiates to the calf, causing the calf to knot up. The pain has been persistent and was previously managed with a cortisone injection, which provided temporary relief. The patient has a history of a 10 mm ganglion cyst. He was informed by Orthopedics that the cyst is not contributing to the pain, which is primarily due to osteoarthritis. Patient continues to report intractable right knee pain. He did receive right knee cortisone injection earlier this year with good but temporary relief. He reports pain level today 5/10. He reports good mobility except right knee, good activities of daily living, good social interactions and better sleep. 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 CRPS (complex regional pain syndrome), upper limb Preventative health care Obesity, Class I, BMI 30.0-34.9 (see actual BMI) Morbid obesity Hypertension Allergic reaction Acute pharyngitis Acute allergic serous otitis media Surgical History History of partial amputation of hand Social History Alcohol intake: current Alcohol intake frequency: holidays/special occasions only Tobacco use type: Cigar Current occupational status: employed 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 Review of Systems Const All systems reviewed & are unremarkable except as noted in HPI and below Physical Exam Vital Signs: Last Vital Signs Pulse 72 04/23/25 09:18 BP 128/70 04/23/25 09:18 Pulse Ox 99 04/23/25 09:18 Oxygen Delivery Method Room Air 04/23/25 09:18 BMI result Body Mass Index 29.9 General: Appears afebrile. Alert and oriented. Mood and affect appropriate. Follows and participates in conversation appropriately. Respiratory effort is unlabored. No cough. Able to transition from sit to stand unassisted. Ambulates with bilaterally normal heel strike and toe off. Extrem General: Yes capillary refill normal, Yes no clubbing, cyanosis or edema and Yes calf tenderness (right ) Right lower extremity: knee (Limited ROM due to pain. Right knee pain radiates to lateral side and calf ) Details: normal to inspection, tenderness Location: of the medial joint line, normal ROM, crepitus and other (Wearing knee brace); no swelling, no ecchymosis, no deformity and no unusual warmth Psych Appearance: grossly normal and well kempt Mental Status: mental status grossly normal Speech and movement: Normal speech and movement present and Clear speech present Affect: normal affect Attitude: cooperative Thought process: Normal thought process present Thought content: Normal thought content present, suicidality (none), no hallucinations and No Depressive thoughts present Insight: Good insight present (Psych) Judgement: Good judgement present (Psych) Results Reviewed Results Reviewed: XR shoulder RT min 2V 12/09/24 Findings: Bones intact. No dislocations. Mild narrowing and osteophyte production within the acromioclavicular joint. Unremarkable glenohumeral joint. No erosions. No radiopaque foreign body. IMPRESSION: 1. No acute findings MRI RIGHT KNEE WITHOUT CONTRAST 12/08/24 HISTORY: M25.561 - Pain in right knee COMPARISON: Correlation is made with plain films of the right knee from [facility] dated 10/22/2023. TECHNIQUE: Coronal T1 and fat-suppressed proton density, sagittal proton density and fat-suppressed proton density, and axial fat suppressed T2 weighted MR images of the right knee were obtained. FINDINGS: Bone marrow: Bone marrow signal intensity is normal. Joint effusion: There is no joint effusion. Gasca's cyst: There is no Gasca's cyst. Articular cartilage: There is mild irregularity of the cartilage of the medial femoral condyle and the patella consistent with mild osteoarthritis. Muscles/soft tissues: The visualized muscles demonstrate normal signal intensity. There is a 10 mm multiloculated cystic structure adjacent to the fibular head, consistent with a ganglion cyst. Anterior cruciate ligament: Intact Posterior cruciate ligament: Intact Medial collateral ligament: Intact Lateral collateral ligament: Intact Medial meniscus: Intact Lateral meniscus: Intact Flexor mechanism: The popliteus, gastrocnemius, and hamstring tendons are intact. Quadriceps tendon: Intact Patellar tendon: Intact Patellar retinacula: Intact IMPRESSION: 1. Mild osteoarthritis of the medial and patellofemoral compartments. 2. Findings suggestive of a 10 mm ganglion cyst adjacent to the fibular head. Assessment & Plan Assessment & Plan (1) Right knee pain: Code(s): M25.561 - Pain in right knee Category: Medical (2) Osteoarthritis of right knee: Code(s): M17.11 - Unilateral primary osteoarthritis, right knee Category: Medical (3) Right calf pain: Code(s): M79.661 - Pain in right lower leg Category: Medical (4) Lumbar spondylosis: Code(s): M47.816 - Spondylosis without myelopathy or radiculopathy, lumbar region Category: Medical (5) CRPS (complex regional pain syndrome), upper limb: Code(s): G90.519 - Complex regional pain syndrome I of unspecified upper limb Category: Medical (6) Opioid contract exists: Code(s): Z79.891 - 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 No obvious signs of diversion, abuse or misuse of the opioid medications. Script sent for Percocet 5-325 mg QID with an advanced date of 05/05/25. Patient has Narcan at home. For intractable right knee pain, we will proceed with Synvisc One right knee injection with local and fluoroscopy. Expectations, risks and benefits were reviewed. Patient is aware he will be contacted to schedule this procedure. US Duplex of right knee to rule out DVT. Continue ice and heat therapy, knee bracing, weight optimization, adequate hydration, activity modifications, NSAIDs and home stretching exercises. All questions and concerns have been answered and patient agrees with the plan. Follow up in 4-5 weeks for pill count and sooner if needed. Orders: Orders US venous duplex LE RT Today M79.661 - Pain in right lower leg Medications: New lidocaine 5% leave on most painful area for up to 12 hrs topically daily; 30 ea 3RF pain 30 days M17.11 - Unilateral primary osteoarthritis, right knee, M25.561 - Pain in right knee Refilled oxycodone-acetaminophen 5-325 mg Partial Fill upon patient request. 1 tab PO Q6H PRN 120 tabs 0RF pain 30 days G90.519 - Complex regional pain syndrome I of unspecified upper limb, M47.816 - Spondylosis without myelopathy or radiculopathy, lumbar region, M54.50 - Low back pain, unspecified, Z79.891 - prison (current) use of opiate analgesic Coding Level of Care Code Est Pt Level 4 (27406) Complex EM visit Add On G2211 Diagnoses Right knee pain M25.561 Osteoarthritis of right knee M17.11 Right calf pain M79.661 Lumbar spondylosis M47.816 CRPS (complex regional pain syndrome), upper limb G90.519 Opioid contract exists Z79.891 Ganglion of right knee M67.461
[2025-04-23 09:18] VITALS: BP 128/70; PULSE 72; O2SAT 99; BMI 29.9
== END 2025-04-23 09:35 | disposition home or self-care (01) ==
LOC: HO.PMC 09:06
PROVIDERS: PCP Nurse Practitioner Gerontology; Visit Provider Nurse Practitioner Family
DX: M25.561 Pain in right knee (principal); M17.11 Unilateral primary osteoarthritis, right knee; M79.661 Pain in right lower leg; M47.816 Spondylosis without myelopathy or radiculopathy, lumbar region; G90.519 Complex regional pain syndrome I of unspecified upper limb; Z79.891 Long term (current) use of opiate analgesic; M67.461 Ganglion, right knee
CPT/HCPCS: 99214

== ENCOUNTER 2025-05-01 08:41 | Outpatient (REF) | payer BC, SELFPAY ==
--- NOTE | ~2025-05-01 | US_ITS ---
EXAMINATION: US TRIPLEX LOWER EXTREMITY, RIGHT CLINICAL INFORMATION: Right lower extremity pain. COMPARISON: None available. TECHNIQUE: Color-flow triplex imaging with spectral analysis and compression Doppler were performed on the right lower extremity. FINDINGS: Respiratory variation, normal compression and augmented flow are noted throughout the right lower extremity. The visualized common femoral vein, superficial femoral vein, profunda femoral vein, popliteal vein and midcalf peroneal and posterior tibial venous segments show no evidence of deep venous thrombosis. There is no Gasca's cyst. US/US venous duplex LE RT IMPRESSION: No evidence of deep venous thrombosis involving the right lower extremity. Electronically signed by: Yury Britt MD 05/01/2025 10:18 AM EDT
== END 2025-05-01 08:42 | disposition home or self-care (01) ==
LOC: HO.US 08:41
PROVIDERS: Visit Provider Nurse Practitioner Family
DX: M79.661 Pain in right lower leg (principal)
CPT/HCPCS: 93971

== ENCOUNTER → 2025-05-01 08:43 | Outpatient (BNV) | payer BC, SELFPAY | PROVIDERS: Visit Provider Radiology Diagnostic Radiology | DX: M79.661 Pain in right lower leg (principal) | CPT/HCPCS: 93971 ==

== ENCOUNTER 2025-05-21 08:47 | Outpatient (AMB) | payer BC, SELFPAY ==
--- NOTE | 2025-05-21 08:48 | MHC.OFFVIS ---
Vital Signs 05/21/25 08:58 Height 5 ft 11 in Weight 222 lb 4 oz BMI 31.0 BP 120/72 Blood Pressure Location Rt brachial Position Sitting Pulse 67 Pulse Source Pulse Oximeter Pulse Oximetry (%) 98 Oxygen Delivery Method Room Air Intake Visit Reasons: Pill Count Intake Note: John comes in today for a pill count to oxycodone-acetaminophen, patient should have 60 tablets and presents with 64 tablets which he last took last night 05/20/25 at 10pm. 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 He is currently prescribed oxycodone/acetaminophen 5/325 mg to be taken four times a day as needed, and his pill count was accurate with 64 pills present, as he was expected to present with 60 pills. The patient reports experiencing right knee pain, which has been persistent. The pain is primarily located on the right-hand side and medially, with occasional tightness as the pain progresses. He is awaiting secondary Orthopedic evaluation at [facility]. Patient is also awaiting insurance approval for gel shots, which has now been approved for Durolane injections and will be scheduled today. The patient occasionally uses meloxicam for severe pain and requests refill today, understanding it as an NSAID and is aware of the potential risks of regular use. Denies any recent cough, cold, infection, fever or any significant changes in medical history since last office visit. - Affect: Pain management allows the patient to be less symptomatic and more functional. - Analgesia: Current medication includes oxycodone/acetaminophen, with pain reduced to 2 out of 10. - Adverse Effects: Denies any side effects, including constipation. - Activities of Daily Living: Pain management improves functionality, mobility and better sleep. - Aberrant Drug Related Behaviors: Pill count is correct, indicating adherence to prescribed regimen. 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 - Gastrointestinal: Denies constipation. - General: Denies drowsiness, dizziness, visual disturbances, chest pain, shortness of breaths, fever or cough. All systems reviewed & are unremarkable except as noted in HPI and below Physical Exam General: Appears afebrile. Alert and oriented. Mood and affect appropriate. Follows and participates in conversation appropriately. Respiratory effort is unlabored. No cough. Able to transition from sit to stand unassisted. Ambulates with bilaterally normal heel strike and toe off. Extrem General: Yes capillary refill normal, Yes no clubbing, cyanosis or edema and Yes no calf tenderness Right lower extremity: knee (Limited ROM due to pain.) Details: normal to inspection, tenderness Location: of the medial joint line, normal ROM and crepitus; no swelling, no ecchymosis and no unusual warmth Psych Appearance: grossly normal and well kempt Mental Status: mental status grossly normal Speech and movement: Normal speech and movement present and Clear speech present Affect: normal affect Attitude: cooperative Thought process: Normal thought process present Thought content: Normal thought content present, suicidality (none), no hallucinations and No Depressive thoughts present Insight: Good insight present (Psych) Judgement: Good judgement present (Psych) Results Reviewed Results Reviewed: XR shoulder RT min 2V 12/09/24 Findings: Bones intact. No dislocations. Mild narrowing and osteophyte production within the acromioclavicular joint. Unremarkable glenohumeral joint. No erosions. No radiopaque foreign body. IMPRESSION: 1. No acute findings MRI RIGHT KNEE WITHOUT CONTRAST 12/08/24 HISTORY: M25.561 - Pain in right knee COMPARISON: Correlation is made with plain films of the right knee from [facility] dated 10/22/2023. TECHNIQUE: Coronal T1 and fat-suppressed proton density, sagittal proton density and fat-suppressed proton density, and axial fat suppressed T2 weighted MR images of the right knee were obtained. FINDINGS: Bone marrow: Bone marrow signal intensity is normal. Joint effusion: There is no joint effusion. Gasca's cyst: There is no Gasca's cyst. Articular cartilage: There is mild irregularity of the cartilage of the medial femoral condyle and the patella consistent with mild osteoarthritis. Muscles/soft tissues: The visualized muscles demonstrate normal signal intensity. There is a 10 mm multiloculated cystic structure adjacent to the fibular head, consistent with a ganglion cyst. Anterior cruciate ligament: Intact Posterior cruciate ligament: Intact Medial collateral ligament: Intact Lateral collateral ligament: Intact Medial meniscus: Intact Lateral meniscus: Intact Flexor mechanism: The popliteus, gastrocnemius, and hamstring tendons are intact. Quadriceps tendon: Intact Patellar tendon: Intact Patellar retinacula: Intact IMPRESSION: 1. Mild osteoarthritis of the medial and patellofemoral compartments. 2. Findings suggestive of a 10 mm ganglion cyst adjacent to the fibular head. 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 No obvious signs of diversion, abuse or misuse of the opioid medications. Script sent for Percocet 5-325 mg QID with an advanced date of 06/03/25. Patient has Narcan at home. For intractable right knee pain, we will proceed with Durolane right knee injection with local and fluoroscopy. Expectations, risks and benefits were reviewed. Continue ice and heat therapy, knee bracing, weight optimization, adequate hydration, activity modifications, Meloxicam and home stretching exercises. All questions and concerns have been answered and patient agrees with the plan. Follow up in 4-5 weeks for pill count/after injection and sooner if needed. Medications: Changed From meloxicam Take it with food and full glass of water. Avoid other NSAIDs (Ibuprofen). 15 mg PO DAILY 30 tabs 0RF pain M25.511 - Pain in right shoulder To meloxicam Take it with food and full glass of water. Avoid other NSAIDs (Ibuprofen). 15 mg PO DAILY PRN 30 tabs 2RF pain M25.511 - Pain in right shoulder Refilled oxycodone-acetaminophen 5-325 mg Partial Fill upon patient request. 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 Discontinued gabapentin 10% Apply 1-2 gm (1-2 pumps) to affected area 3-4 times daily Discontinued Reason: Patient Completed Course 1 appl topical TID-QID 30 days 180 grams 1RF pain G90.519 - Complex regional pain syndrome I of unspecified upper limb gabapentin Discontinued Reason: Patient Completed Course 300 mg PO TID 30 days 90 caps 0RF pain M25.552 - Pain in left hip, M47.816 - Spondylosis without myelopathy or radiculopathy, lumbar region, M53.3 - Sacrococcygeal disorders, not elsewhere classified Coding Level of Care Code Est Pt Level 4 (21792) Complex EM visit Add On G2211 Diagnoses Right knee pain M25.561 Osteoarthritis of right knee M17.11 Lumbar spondylosis M47.816 CRPS (complex regional pain syndrome), upper limb G90.519 Opioid contract exists Z79.891 Ganglion of right knee M67.461
[2025-05-21 08:58] VITALS: BP 120/72; PULSE 67; O2SAT 98; BMI 31.0
== END 2025-05-21 09:37 | disposition home or self-care (01) ==
LOC: HO.PMC 08:47
PROVIDERS: PCP Nurse Practitioner Gerontology; Visit Provider Nurse Practitioner Family
DX: M25.561 Pain in right knee (principal); M17.11 Unilateral primary osteoarthritis, right knee; M47.816 Spondylosis without myelopathy or radiculopathy, lumbar region; G90.519 Complex regional pain syndrome I of unspecified upper limb; Z79.891 Long term (current) use of opiate analgesic; M67.461 Ganglion, right knee
CPT/HCPCS: 99214

== ENCOUNTER 2025-06-02 06:17 | Outpatient (REF) | payer BC, SELFPAY ==
--- OUTSIDE RECORDS SUMMARY | 2025-06-02 06:20 | XMS_ITS | Data Portability ---
Author Organization [place] - [facility], Allergy Address [address] [address] Care Team Providers Care Repair Weaver Name Role Phone ISMAEL COLINDRES Primary Care Provider [phone] Assessment Encounter Date Assessment Date Assessment LastModified [...] if symptoms worsen. All questions were answered. [email or web address] Not available 03/27/2024 12:05:52 Plan of Treatment [...] audio gram No observ ation record ed. [email or web address] Not Available 03/14 09:02:34 Result Notes None recorded. Problems Name Problem SNOMED Code Status Onset Date Resolution Date Notes Provider Name and Address Organization Details Recorded Time Otitis externa of right ear 596002489083 9101 Active 2018 Other otitis externa , right ear; Note: Date Diagnos ed: 09/05/19 19 4:02 PM (H60.8X 1) Not Available [facility] 02:13:29 Abnormal auditory perception 35138013 Active 2023 ZOFIA DSOUZA, AUD [address], [place], [address] , [facility] [place] 4 10:34:42 Bilateral tinnitus 444057981722 2 Active 2023 MALLORY RAYO PA-C [address], [place], [address] , [facility] - [facility] [place] 12:04:41 Problem Notes None recorded. Procedures Surgical History Date Name Laterality Status Provider Name and Address Organization Details Recorded Time 03/27/2024 Air & Speech Audio with Tymps - 39620, 15456 & 96131 completed ZOFIA MOORELOPEZ, AUD [address] [facility],[facility] [address], [place], [address], [facility] 03/27/2024 10:34:29 Imaging Results None recorded. Procedure Notes None recorded. Medical Equipment None [...] mg tablet 2018 active Medicatio n ID: [id number] Du ration Value: 30 Brand Name: lisinopri l Send Method: E-Prescri bed Subs Allowed: subs [...] drops,susp ension 2018 active Medicatio n ID: [id number] Pr escribed By Name: Denisse Layne Name: [...] Updated DateTime 03/27/2024 180.34 cm 29.3 kg/m2 50385.4 g Sunni Carrington [place] - [facility] 03/27/2024 10:46:20 Social History None recorded. Functional Status None recorded. Mental Status None recorded. Family History Nothing Reported. Medical History Condition Response Hypertension Y Past Encounters Encounter ID Performer Location Encounter Start Date Encounter Closed Date Diagnosis/Indication Diagnosis SNOMED-CT Code Diagnosis ICD10 Code Diagnosis IMO Codes Diagnosis Note [id number] MALLORY RAYO PA-C [facility] [address] [address] 03/27/2024 09:43:44 03/27/2024 11:16:32 Abnormal auditory perception [id number] H93.299 Audiologic al evaluation results: Right ear: Normal auditory thresholds with excellent speech discrimina tion. Left ear: Normal auditory thresholds with excellent speech discrimina tion. Tympanomet ry: Right Ear:Type A Left Ear:Type A Bilateral tinnitus 89143 87316 102 H93.13 Health Concerns Section Related Observation LastModified by Organization Detai ls LastModified Time None Recorded Concern Status LastModified by Organization Details LastModified Time None Recorded Advance Directives Directive None Recorded Payers Insurance Date Sequence Insurance Name Policy Number Policy Bazan Covered Member ID Bazan Member ID Guarantor Name 03/27/2024 1 [facility] ([place]) [id number] John Perez [id number] John Perez Notes Date Note Type Note Provider Name and Address Organization Details Recorded Time 03/27/2024 text/html ROS as noted in the HPI 48-year-old male presents for evaluation of tinnitus. He reports bilateral intermittent tinnitus, worse in quiet environments for the past several years. Denies otalgia, otorrhea, changes in his hearing, and vertigo. Denies prior otologic history. History of noise exposure but consistently uses hearing protection. MALLORY RAYO PA-C [address] [place] [address], [phone], [facility] - [facility] 03/27/2024 12:07:32
== END 2025-06-02 06:18 | disposition home or self-care (01) ==
LOC: CF 06:17
PROVIDERS: Visit Provider Anesthesiology
DX: M17.11 Unilateral primary osteoarthritis, right knee (principal)
CPT/HCPCS: 20610; J7318

== ENCOUNTER 2025-06-02 11:07 | Outpatient (AMB) | payer BC, SELFPAY ==
[2025-06-02 11:12] VITALS: BP 136/91; PULSE 78; RESP 16; O2SAT 99; BMI 31.0
--- NOTE | 2025-06-02 11:12 | A.OFFVIS_ITS ---
Vital Signs 06/02/25 11:12 Height 5 ft 11 in Weight 222 lb BMI 31.0 BP 136/91 H Blood Pressure Location Rt brachial Position Sitting Respiration 16 Pulse 78 Pulse Source Pulse Oximeter Pulse Oximetry (%) 99 Oxygen Delivery Method Room Air Intake Visit Reasons: Right knee Durolane Allergies No Known Allergies Allergy (Verified 05/21/25 08:58) PFSH Medical History Chronic pain syndrome Osteoarthritis of right knee Opioid contract exists Sacroiliac joint pain Lumbar radiculopathy Right knee pain GERD (gastroesophageal reflux disease) Chest pain jail (current) use of opiate analgesic CRPS (complex regional pain syndrome), upper limb Preventative health care Obesity, Class I, BMI 30.0-34.9 (see actual BMI) Morbid obesity Hypertension Allergic reaction Acute pharyngitis Acute allergic serous otitis media Surgical History History of partial amputation of hand Social History Alcohol intake: current Alcohol intake frequency: holidays/special occasions only Tobacco use type: Cigar Current occupational status: employed 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 Physical Exam Vital Signs: Last Vital Signs Pulse 78 06/02/25 11:12 Resp 16 06/02/25 11:12 BP 136/91 H 06/02/25 11:12 Pulse Ox 99 06/02/25 11:12 Oxygen Delivery Method Room Air 06/02/25 11:12 BMI result Body Mass Index 31.0 Office Procedures AMB Joint Injection/Aspiration Joint Injection/Aspiration Primary Site: right knee Prep: site was prepped using sterile technique Approach Used: lateral parapatellar Procedure: The patient tolerated the procedure well Coding 40852 - Large joint Procedure code (CPT) selection complete Office Meds Durolane 60 mg/3 mL intra-articular syringe Performing Provider: Nahid Ruffin MD Performing Location: [facility] [place] [facility] Administered by: Nahid Ruffin MD on 06/02/25 11:16 Dose Route Admin Location Dispensed Lot Number Expiration Date NDC [employer] 60 mg intra-articular 3 mL [id number] 09/12/24 [address]-8 BI [employer] Total Dispensed Waste 3 mL 0 % Assessment & Plan Assessment & Plan (1) Osteoarthritis of right knee: Code(s): M17.11 - Unilateral primary osteoarthritis, right knee Category: Medical Plan Durolane injection right knee. Informed consent was explained to the patient. He was positioned sitting on the examination table. In strict sterile condition 3 mL of Durolane solution was injected in the knee in lateral parapatellar fashion. Upon completion of the injection needle was withdrawn Band-Aid was applied. The patient tolerated the procedure well. Orders: Orders FL guidance in treatment room Today M17.11 - Unilateral primary osteoarthritis, right knee AMB Hyaluronic Injection Today M17.11 - Unilateral primary osteoarthritis, right knee Coding Level of Care Code Procedure Only Diagnoses Osteoarthritis of right knee M17.11 CPT Codes Coding - 83831 Large joint: 68241 - Large joint ([id number])
== END 2025-06-02 11:19 | disposition home or self-care (01) ==
LOC: HO.PMCPRC 11:07
PROVIDERS: PCP Nurse Practitioner Gerontology; Visit Provider Anesthesiology
DX: M17.11 Unilateral primary osteoarthritis, right knee (principal)
CPT/HCPCS: 20610; 77002

== ENCOUNTER 2025-06-09 14:10 | Outpatient (AMB) | payer BC, SELFPAY ==
--- NOTE | 2025-06-09 14:12 | A.OFFVIS_ITS ---
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 The pain began after the injection on 06/02/25 and has been persistent, with the most severe pain occurring last and Sunday following the procedure. 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 The patient has a history of right osteoarthritis of the medial and patellofemoral compartments. Prior to the injection, the patient experienced pain primarily in the medial aspect of the knee. Earlier this year, he received cortisone injection which provided good but temporarily relief. Patient denies any swelling or erythema of right knee following the injections, but has experiences limited mobiity due to increased pain and localized tenderness. The patient has been using meloxicam and ice packs to manage the pain, and he is part of an opioid program for pain management. He has not returned to work since the injection, except for one day, due to the severity of the pain. Denies any recent cough, cold, infection, fever, or any significant changes in her medical history, medications or recent Urgent clinic visits or hospitalizations. PRIOR: The patient is a 49-year-old male presenting with a request for a pill count and medication refill. He is currently prescribed oxycodone/acetaminophen 5/325 mg to be taken four times a day as needed, and his pill count was accurate with 64 pills present, as he was expected to present with 60 pills. The patient reports experiencing right knee pain, which has been persistent. The pain is primarily located on the right-hand side and medially, with occasional tightness as the pain progresses. He is awaiting secondary Orthopedic evaluation at [facility]. Patient is also awaiting insurance approval for gel shots, which has now been approved for Durolane injections and will be scheduled today. The patient occasionally uses meloxicam for severe pain and requests refill today, understanding it as an NSAID and is aware of the potential risks of regular use. Denies any recent cough, cold, infection, fever or any significant changes in medical history since last office visit. - Affect: Pain management allows the patient to be less symptomatic and more functional. - Analgesia: Current medication includes oxycodone/acetaminophen, with pain reduced to 2 out of 10. - Adverse Effects: Denies any side effects, including constipation. - Activities of Daily Living: Pain management improves functionality, mobility and better sleep. - Aberrant Drug Related Behaviors: Pill count is correct, indicating adherence to prescribed regimen. 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 CRPS (complex regional pain syndrome), upper limb Preventative health care Obesity, Class I, BMI 30.0-34.9 (see actual BMI) Morbid obesity Hypertension Allergic reaction Acute pharyngitis Acute allergic serous otitis media Surgical History History of partial amputation of hand Social History Alcohol intake: current Alcohol intake frequency: holidays/special occasions only Tobacco use type: Cigar Current occupational status: employed 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 - General: Denies swelling or redness in the knee. All systems reviewed & are unremarkable except as noted in HPI and below Physical Exam Vital Signs: Last Vital Signs BP 140/80 H 06/09/25 14:15 BMI result Body Mass Index 31.0 General: Appears afebrile. Alert and oriented. Mood and affect appropriate. Follows and participates in conversation appropriately. Respiratory effort is unlabored. No cough. Able to transition from sit to stand unassisted. Ambulates with bilaterally normal heel strike and toe off and rises from a seated position without difficulty. Extrem General: Yes capillary refill normal, Yes no clubbing, cyanosis or edema and Yes no calf tenderness Right lower extremity: knee Details: normal to inspection, tenderness Location: of the patella, of the medial joint line and of the lateral joint line, normal ROM and crepitus; no swelling, no ecchymosis, no deformity and no unusual warmth Results Reviewed Results Reviewed: MRI RIGHT KNEE WITHOUT CONTRAST 12/08/24 HISTORY: M25.561 - Pain in right knee COMPARISON: Correlation is made with plain films of the right knee from [facility] dated 10/22/2023. TECHNIQUE: Coronal T1 and fat-suppressed proton density, sagittal proton density and fat-suppressed proton density, and axial fat suppressed T2 weighted MR images of the right knee were obtained. FINDINGS: Bone marrow: Bone marrow signal intensity is normal. Joint effusion: There is no joint effusion. Gasca's cyst: There is no Gasca's cyst. Articular cartilage: There is mild irregularity of the cartilage of the medial femoral condyle and the patella consistent with mild osteoarthritis. Muscles/soft tissues: The visualized muscles demonstrate normal signal intensity. There is a 10 mm multiloculated cystic structure adjacent to the fibular head, consistent with a ganglion cyst. Anterior cruciate ligament: Intact Posterior cruciate ligament: Intact Medial collateral ligament: Intact Lateral collateral ligament: Intact Medial meniscus: Intact Lateral meniscus: Intact Flexor mechanism: The popliteus, gastrocnemius, and hamstring tendons are intact. Quadriceps tendon: Intact Patellar tendon: Intact Patellar retinacula: Intact IMPRESSION: 1. Mild osteoarthritis of the medial and patellofemoral compartments. 2. Findings suggestive of a 10 mm ganglion cyst adjacent to the fibular head. Assessment & Plan Assessment & Plan (1) Right knee pain: Code(s): M25.561 - Pain in right knee Category: Medical (2) Osteoarthritis of right knee: Code(s): M17.11 - Unilateral primary osteoarthritis, right knee Category: Medical Plan The patient will continue to monitor the knee pain following the Durolane injection, as the inflammatory response is expected to last few weeks. He is advised to continue using ice packs and meloxicam for pain relief and to avoid activities that exacerbate the pain. No erythema, redness or swelling noted anterior or posterior aspects of right knee. All questions and concerns have been answered and patient agreed with the tr eatment plan. Follow up for pill count as scheduled and sooner as needed. Patient was informed and verbally consented to the use of an ambient scribe for clinic note documentation during this visit. Coding Level of Care Code Est Pt Level 3 (89682) Complex EM visit Add On G2211 Diagnoses Right knee pain M25.561 Osteoarthritis of right knee M17.11
[2025-06-09 14:15] VITALS: BP 140/80; BMI 31.0
--- OUTSIDE RECORDS SUMMARY | 2025-06-09 18:34 | XMS_ITS | Data Portability ---
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 All questions were answered. [email or web address] Not available 03/27/2024 12:05:52 Plan of Treatment [...] audio gram No observ ation record ed. [email or web address] Not Available 03/14 09:02:34 Result Notes None recorded. Problems Name Problem SNOMED Code Status Onset Date Resolution Date Notes Provider Name and Address Organization Details Recorded Time Otitis externa of right ear 310843579279 9101 Active 2018 Other otitis externa , right ear; Note: Date Diagnos ed: 09/05/19 19 4:02 PM (H60.8X 1) Not Available [facility] 02:13:29 Abnormal auditory perception 83260451 Active 2023 ZOFIA DSOUZA, AUD [address], [place], [address] , [facility] 4 10:34:42 Bilateral tinnitus 590976826339 2 Active 2023 MALLORY RAYO PA-C [address] [place], [place], [address] , [facility] - [facility] 12:04:41 Problem Notes None recorded. Procedures Surgical History Date Name Laterality Status Provider Name and Address Organization Details Recorded Time 03/27/2024 Air & Speech Audio with Tymps - 56174, 07195 & 44031 completed ZOFIA MOORELOPEZ, AUD [address],[facility] [address], [place], [address], [facility] 03/27/2024 10:34:29 Imaging Results None recorded. Procedure [...] mg tablet 2018 active Medicatio n ID: [id number] Du ration Value: 30 Brand Name: [email or web address] [...] drops,susp ension 2018 active Medicatio n ID: [id number] Pr escribed By Name: Denisse Layne Name: [...] Updated DateTime 03/27/2024 180.34 cm 29.3 kg/m2 19594.4 g Sunni Carrington [place] - [facility] 03/27/2024 10:46:20 Social History None recorded. Functional Status None recorded. Mental Status None recorded. Family History Nothing Reported. Medical History Condition Response Hypertension Y Past Encounters Encounter ID Performer Location Encounter Start Date Encounter Closed Date Diagnosis/Indication Diagnosis SNOMED-CT Code Diagnosis ICD10 Code Diagnosis IMO Codes Diagnosis Note [id number] MALLORY RAYO PA-C [facility] [address] [address] 03/27/2024 09:43:44 03/27/2024 11:16:32 Abnormal auditory perception [id number] H93.299 Audiologic al evaluation results: Right ear: Normal auditory thresholds with excellent speech discrimina tion. Left ear: Normal auditory thresholds with excellent speech discrimina tion. Tympanomet ry: Right Ear:Type A Left Ear:Type A Bilateral tinnitus 78879 15424 102 H93.13 Health Concerns Section Related Observation LastModified by Organization Detai ls LastModified Time None Recorded Concern Status LastModified by Organization Details LastModified Time None Recorded Advance Directives Directive None Recorded Payers Insurance Date Sequence Insurance Name Policy Number Policy Bazan Covered Member ID Bazan Member ID Guarantor Name 03/27/2024 1 [facility] HMO [facility] (O) [id number] John Perez [id number] John Perez Notes Date Note Type [...] consistently uses hearing protection. MALLORY RAYO PA-C [address] [place] [address], [phone], [facility] - [facility] 03/27/2024 12:07:32
== END 2025-06-09 14:23 | disposition home or self-care (01) ==
LOC: HO.PMC 14:11
PROVIDERS: PCP Nurse Practitioner Gerontology; Visit Provider Nurse Practitioner Family
DX: M25.561 Pain in right knee (principal); M17.11 Unilateral primary osteoarthritis, right knee
CPT/HCPCS: 99213

== ENCOUNTER 2025-06-26 08:46 | Outpatient (AMB) | payer BC, SELFPAY ==
--- NOTE | 2025-06-26 08:49 | MHC.OFFVIS ---
Vital Signs 06/26/25 08:57 Height 5 ft 11 in Weight 220 lb 8 oz BMI 30.8 BP 138/70 Blood Pressure Location Rt brachial Position Sitting Pulse 72 Pulse Source Pulse Oximeter Pulse Oximetry (%) 98 Oxygen Delivery Method Room Air Intake Visit Reasons: Pill Count S/P Right Knee Durolane Intake Note: John comes in today for a pill count to oxycodone-acetaminophen, patient should have 36 tablets and presents with 40 tablets which he last took last night 06/25/25 at 11pm. 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 He is currently prescribed oxycodone/acetaminophen 5/325 mg to be taken four times a day as needed, and his pill count was accurate with 40 pills present, as he was expected to present with 34 pills. This demonstrates a responsible attitude in regards to the medication regimen. She reports mild to moderate decrease in pain, with no noted side effects. Denies any fever, cough, constipation, nausea, sedation, dizziness, or urinary retention. Patient states he has an increased ability to perform activities of daily living, interact socially and be more functional.? The patient reports experiencing right knee pain has almost completely resolved after recent Durolane injection, providing him 90-95% ongoing pain relief. Past Procedures: 06/02/25: Right knee Durolane [id number]% ongoing pain relief 01/06/25: Right shoulder steroid injection-100% ongoing pain relief 11/04/24: Right knee intra-articular steroid injection- 80% ongoing pain relief 03/11/24: Left diagnostic sacroiliac joint injection: 90-100% pain relief for 24 hours, ongoing 70% pain relief [facility] Medical History Chronic pain syndrome Osteoarthritis of right knee Opioid contract exists Sacroiliac joint pain Lumbar radiculopathy Right knee pain GERD (gastroesophageal reflux disease) Chest pain alf (current) use of opiate analgesic CRPS (complex regional pain syndrome), upper limb Preventative health care Obesity, Class I, BMI 30.0-34.9 (see actual BMI) Morbid obesity Hypertension Allergic reaction Acute pharyngitis Acute allergic serous otitis media Surgical History History of partial amputation of hand Social History Alcohol intake: current Alcohol intake frequency: holidays/special occasions only Tobacco use type: Cigar Current occupational status: employed 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 Alert and oriented. Mood and affect appropriate. Follows and participates in conversation appropriately. Respiratory effort is unlabored. No cough. Able to transition from sit to stand unassisted. Ambulates with bilaterally normal heel strike and toe off. Extrem General: Yes capillary refill normal, Yes no clubbing, cyanosis or edema and Yes no calf tenderness Right lower extremity: knee Details: normal to inspection, tenderness Location: of the patella, of the medial joint line and of the lateral joint line, normal ROM and crepitus; no swelling, no ecchymosis, no deformity and no unusual warmth Assessment & Plan Assessment & Plan (1) Osteoarthritis of right knee: Code(s): M17.11 - Unilateral primary osteoarthritis, right knee Category: Medical (2) Right knee pain: Code(s): M25.561 - Pain in right knee Category: Medical (3) Lumbar spondylosis: Code(s): M47.816 - Spondylosis without myelopathy or radiculopathy, lumbar region Category: Medical (4) CRPS (complex regional pain syndrome), upper limb: Code(s): G90.519 - Complex regional pain syndrome I of unspecified upper limb Category: Medical (5) Opioid contract exists: Code(s): Z79.891 - alf (current) use of opiate analgesic Category: Medical (6) Ganglion of right knee: Code(s): M67.461 - Ganglion, right knee Category: Medical Plan Masspat was reviewed and without concerns. No obvious signs of diversion, abuse or misuse of the opioid medications. Script sent for Percocet 5-325 mg QID with an advanced date of 07/05/25. Patient has Narcan at home. Patient will continue to monitor right knee s/p recent Durolane injection and notify our office when his pain returns to baseline. All questions and concerns have been answered and patient agrees with the plan. Follow up in 4-5 weeks for pill count/after injection and sooner if needed. Medications: Refilled oxycodone-acetaminophen 5-325 mg Partial Fill upon patient request. 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
[2025-06-26 08:57] VITALS: BP 138/70; PULSE 72; O2SAT 98; BMI 30.8
== END 2025-06-26 09:01 | disposition home or self-care (01) ==
LOC: HO.PMC 08:47
PROVIDERS: PCP Nurse Practitioner Gerontology; Visit Provider Nurse Practitioner Family
DX: M17.11 Unilateral primary osteoarthritis, right knee (principal); M25.561 Pain in right knee; M47.816 Spondylosis without myelopathy or radiculopathy, lumbar region; G90.519 Complex regional pain syndrome I of unspecified upper limb; Z79.891 Long term (current) use of opiate analgesic; M67.461 Ganglion, right knee
CPT/HCPCS: 99214

== ENCOUNTER 2025-07-23 08:40 | Outpatient (AMB) | payer BC, SELFPAY ==
--- NOTE | 2025-07-23 08:45 | A.OFFVIS_ITS ---
Vital Signs 07/23/25 08:55 Height 5 ft 11 in Weight 219 lb 2 oz BMI 30.6 BP 122/70 Blood Pressure Location Rt brachial Position Sitting Pulse 72 Pulse Source Pulse Oximeter Pulse Oximetry (%) 98 Oxygen Delivery Method Room Air Intake Visit Reasons: PILL COUNT Intake Note: John comes in today for a pill count to oxycodone-acetaminophen, patient should have 48 tablets and presents with 52 tablets which he last took last night 07/22/25 at 11pm. Pain today 09/22. Executive Communications Manager Required: No Accompanied by: Self / Same As Patient Allergies No Known Allergies Allergy (Verified 07/23/25 08:56) HPI Comments Details: The patient is a 49-year-old male presenting with a request for a pill count and medication refill. He is currently prescribed oxycodone/acetaminophen 5/325 mg to be taken four times a day as needed, and his pill count was accurate with #52 pills present, as he was expected to present with #48 pills. This demonstrates a responsible attitude in regards to the medication regimen. Patient reports adequate, with no noted side effects. Denies any fever, cough, constipation, nausea, sedation, dizziness, or urinary retention. Patient states he has an increased ability to perform activities of daily living, interact socially and be more functional.? Past Procedures: 06/02/25: Right knee Durolane [id number]% ongoing pain relief 01/06/25: Right shoulder steroid injection-100% ongoing pain relief 11/04/24: Right knee intra-articular steroid injection- 80% ongoing pain relief 03/11/24: Left diagnostic sacroiliac joint injection: 90-100% pain relief for 24 hours, ongoing 70% pain relief [facility] Medical History Chronic pain syndrome Osteoarthritis of right knee Opioid contract exists Sacroiliac joint pain Lumbar radiculopathy Right knee pain GERD (gastroesophageal reflux disease) Chest pain senior care (current) use of opiate analgesic CRPS (complex regional pain syndrome), upper limb Preventative health care Obesity, Class I, BMI 30.0-34.9 (see actual BMI) Morbid obesity Hypertension Allergic reaction Acute pharyngitis Acute allergic serous otitis media Surgical History History of partial amputation of hand Social History Alcohol intake: current Alcohol intake frequency: holidays/special occasions only Tobacco use type: Cigar Current occupational status: employed 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 Review of Systems Const All systems reviewed & are unremarkable except as noted in HPI and below Physical Exam Vital Signs: Last Vital Signs Pulse 72 07/23/25 08:55 BP 122/70 07/23/25 08:55 Pulse Ox 98 07/23/25 08:55 Oxygen Delivery Method Room Air 07/23/25 08:55 BMI result Body Mass Index 30.6 General: Appears afebrile. Alert and oriented. Mood and affect appropriate. Follows and participates in conversation appropriately. Respiratory effort is unlabored. No cough. Able to transition from sit to stand unassisted. Ambulates with bilaterally normal heel strike and toe off. Eyes General: appearance normal, both eyes and all related structures Resp Effort & Inspection: normal respiratory effort, able to speak in complete sentences, no cough, no respiratory distress and symmetric chest movement Psych Appearance: grossly normal and well kempt Mental Status: mental status grossly normal Speech and movement: Normal speech and movement present and Clear speech present Affect: normal affect Attitude: cooperative Thought process: Normal thought process present Thought content: Normal thought content present, suicidality (none), no hallucinations and No Depressive thoughts present Insight: Good insight present (Psych) Judgement: Good judgement present (Psych) Results Reviewed Results Reviewed: XR shoulder RT min 2V 12/09/24 Findings: Bones intact. No dislocations. Mild narrowing and osteophyte production within the acromioclavicular joint. Unremarkable glenohumeral joint. No erosions. No radiopaque foreign body. IMPRESSION: 1. No acute findings MRI RIGHT KNEE WITHOUT CONTRAST 12/08/24 HISTORY: M25.561 - Pain in right knee COMPARISON: Correlation is made with plain films of the right knee from [facility] dated 10/22/2023. TECHNIQUE: Coronal T1 and fat-suppressed proton density, sagittal proton density and fat-suppressed proton density, and axial fat suppressed T2 weighted MR images of the right knee were obtained. FINDINGS: Bone marrow: Bone marrow signal intensity is normal. Joint effusion: There is no joint effusion. Gasca's cyst: There is no Gasca's cyst. Articular cartilage: There is mild irregularity of the cartilage of the medial femoral condyle and the patella consistent with mild osteoarthritis. Muscles/soft tissues: The visualized muscles demonstrate normal signal intensity. There is a 10 mm multiloculated cystic structure adjacent to the fibular head, consistent with a ganglion cyst. Anterior cruciate ligament: Intact Posterior cruciate ligament: Intact Medial collateral ligament: Intact Lateral collateral ligament: Intact Medial meniscus: Intact Lateral meniscus: Intact Flexor mechanism: The popliteus, gastrocnemius, and hamstring tendons are intact. Quadriceps tendon: Intact Patellar tendon: Intact Patellar retinacula: Intact IMPRESSION: 1. Mild osteoarthritis of the medial and patellofemoral compartments. 2. Findings suggestive of a 10 mm ganglion cyst adjacent to the fibular head. Assessment & Plan Assessment & Plan (1) Osteoarthritis of right knee: Code(s): M17.11 - Unilateral primary osteoarthritis, right knee Category: Medical (2) Right knee pain: Code(s): M25.561 - Pain in right knee Category: Medical (3) Lumbar spondylosis: Code(s): M47.816 - Spondylosis without myelopathy or radiculopathy, lumbar region Category: Medical (4) CRPS (complex regional pain syndrome), upper limb: Code(s): G90.519 - Complex regional pain syndrome I of unspecified upper limb Category: Medical (5) Opioid contract exists: Code(s): Z79.891 - intermission coordinator (current) use of opiate analgesic Category: Medical Plan [place] was reviewed and without concerns. No obvious signs of diversion, abuse or misuse of the opioid medications. Script sent for Percocet 5-325 mg QID with an advanced date of 08/03/25. Patient has Narcan at home. All questions and concerns have been answered and patient agrees with the plan. Follow up in 4-5 weeks for pill count/after injection and sooner if needed. Medications: Refilled oxycodone-acetaminophen 5-325 mg Partial Fill upon patient request. 1 tab PO Q6H PRN 120 tabs 0RF pain 30 days G90.519 - Complex regional pain syndrome I of unspecified upper limb, M47.816 - Spondylosis without myelopathy or radiculopathy, lumbar region, M54.50 - Low back pain, unspecified, Z79.891 - senior care (current) use of opiate analgesic Coding Level of Care Code Est Pt Level 4 (44607) Diagnoses Osteoarthritis of right knee M17.11 Right knee pain M25.561 Lumbar spondylosis M47.816 CRPS (complex regional pain syndrome), upper limb G90.519 Opioid contract exists Z79.891
[2025-07-23 08:55] VITALS: BP 122/70; PULSE 72; O2SAT 98; BMI 30.6
== END 2025-07-23 09:11 | disposition home or self-care (01) ==
LOC: HO.PMC 08:41
PROVIDERS: PCP Nurse Practitioner Gerontology; Visit Provider Nurse Practitioner Family
DX: M17.11 Unilateral primary osteoarthritis, right knee (principal); M25.561 Pain in right knee; M47.816 Spondylosis without myelopathy or radiculopathy, lumbar region; G90.519 Complex regional pain syndrome I of unspecified upper limb; Z79.891 Long term (current) use of opiate analgesic
CPT/HCPCS: 99214